=== PATIENT | male | born 1950 | race Caucasian/White ===

== ENCOUNTER 2016-04-18 09:02 | Inpatient (IN) ==
--- NOTE | 2016-04-18 11:22 | Cardiology History & Physical ---
Date of Encounter: 04/18/16 Time of Encounter: 11:19 Assessment and Plan (1) Paroxysmal atrial fibrillation Current Visit: Yes Status: Acute Currently A-Fib with RVR, rates up to 150. Will start Cardizem gtt to help with rate control. Reports palpitations, fatigue, exertional dyspnea and chest discomfort when in A -Fib. Suspect that pt has underlying sleep apnea--never had sleep study. Recommend as outpt. [facility] 2011 minimal CAD. Echo 12/2014 EF 60%. On Cardizem CD 360mg daily at home. Was supposed to have been on Toprol XL 100mg daily but has not been taking it. He is anticoagulated on Xarelto. Has not missed any doses in the past 30 days. Will check CBC, BMP. Plan to start Sotalol 80mg Q12 hours. Will need monitored for 5 doses. If does not convert to SR, will plan for DCCV--no RC necessary since he has not missed any Xarelto doses in 30 days. EKG 03/13/16 A-Fib RVR rate 105, QRS 102ms, QTc 358ms. Will obtain EKGs 2 hours after each Sotalol to monitor QTc does not exceed >500ms. I will discuss all the above with Dr. Coon and make changes as necessary. (2) Encounter for monitoring anti-arrhythmic therapy Current Visit: Yes Status: Acute Plan as above. Sotalol 80mg [id number]. History of Present Illness Chief complaint: A-Fib HPI: Mr. Yi is a 65 year old male with history of HTN, HLD, nonobstructive CAD, atrial flutter which had previously resolved through 2 ablations but now he has had occurrence of paroxysmal atrial fibrillation. His A-Fib is currently managed with cardizem cd 360mg daily and anticoagulated on xarelto. He was evaluated by Dr. Bon Mendenhall 03/13/16 and admitted to shortness of breath with exertion, fatigue and palpitations. He reports chest discomfort when in A-Fib. At time of office visit Toprol XL was increased to 100mg daily for better rate control and pt agreed to start antiarrhythmic therapy--Sotalol. He presents today for antiarrhythmic initiation. He reports not being on Toprol XL. He took his Cardizem this AM, but currently remains in A-Fib with RVR, rate up to 150. He reports occasional palpitations currently and generalized chest discomfort. Past Med Surg Social Fam HX - Past Medical History Medical history: atrial fibrillation, coronary artery disease, hyperlipidemia, hypertension Psychiatric history: anxiety, depression - Past Surgical History Surgical History: cholecystectomy, knee replacement, orthopedic, other, pacemaker (ablations) - Social History Smoking Status: Former smoker Smokeless Tobacco Status: No Alcohol use: none Drug use: none - Family History Father Living Status: Hx Family Cardiac Disorders: Yes Medications and Allergies Atorvastatin [Lipitor] 10 mg PO HS 01/06/15 [History] Diltiazem CD (24hr) [Cardizem CD] 360 mg PO DAILY 01/06/15 [History] Fenofibrate [Lofibra] 160 mg PO DAILY 01/06/15 [History] Latanoprost [Xalatan] 1 drop LEFT EYE HS 01/06/15 [History] Nortriptyline [Pamelor] 25 mg PO BID 01/06/15 [History] Nystatin/Triamcinolone CRM [Mycolog] 1 appl TP BID 01/06/15 [History] Timolol Maleate 0.5% 1 drop LEFT EYE QAM 01/06/15 [History] Oxybutynin Chloride [Ditropan Xl] 10 mg PO HS 12/09/15 [History] Ferrous Sulfate [Iron] 325 mg PO DAILY 12/26/15 [History] Diazepam [Valium] 2 mg PO BID PRN 03/02/16 [History] Omeprazole [PriLOSEC] 20 mg PO BID 03/02/16 [History] Rivaroxaban [Xarelto] 20 mg PO DAILY 03/02/16 [History] Metoprolol XL (24 HR) Succ [Toprol Xl] 50 mg PO DAILY #30 tab.er.24h 03/04/16 [ Rx] HYDROcodone/Acet 5/325 mg [[place] 5-325 mg] 1 tab PO Q6H PRN 04/18/16 [History] Solifenacin Succinate [Vesicare] 10 mg PO DAILY 04/18/16 [History] Tamsulosin [Flomax] 0.8 mg PO DAILY 04/18/16 [History] Allergies clavulanic acid [From Augmentin] Allergy (Verified 03/11/16 14:18) Nausea Sulindac Allergy (Verified 12/11/16 14:18) Nausea All Systems Review: A 10-system review of systems was performed and is negative for pertinent findings except as documented above in the HPI. - Constitutional Constitutional: fatigue - Cardiovascular Cardiovascular: as per HPI, chest pain at rest, dyspnea on exertion, palpitations Physical Examination Vital Signs, Last 4 Hours Temp Pulse Resp BP Pulse Ox 04/18/16 11:14 98.5 F 149 16 131/106 94 L Vital Signs Temp Pulse Resp BP Pulse Ox 04/18/16 11:14 98.5 F 149 16 131/106 94 L Intake and Output 04/17/16 04/18/16 04/18/16 23:59 07:59 15:59 Other: Weight 124.3 kg Patient Weight 04/18/16 23:59 Weight 124.3 kg General: Conversant, No Apparent Distress HEENT: Atraumatic, Normocephaly, Mucus Membranes Moist Neck: No JVD, Normal carotid pulses Cardiac: Other (irregular) Lungs: Normal Breath Sounds, No Wheeze, Rales, Rhonchi Neuro: Alert and responsive, No focal deficits noted Abdomen: Soft, Non-Tender Skin: No rashes noted on visualized skin Musculoskeletal: No Chest Wall Tenderness Extremities: No Clubbing, No Cyanosis, No Edema, Normal Pulses Results - Imaging and Cardiology Echo: report reviewed (01/17/15 EF 60%, moderate diastolic dysfunction) Cardiac cath: report reviewed (12/28/11--Minimal atherosclerotic CAD.)
[2016-04-18 12:25] LABS: Basophils # 0.1 K/mcL (0.0-0.2); Basophils % 1.5 %; Eosinophils # 0.2 K/mcL (0.0-0.6); Eosinophils % 2.7 %; Hematocrit 46.1 % (37.5-50.1); Hemoglobin 15.3 g/dL (12.9-16.9); Immature Granulocytes % 0.6 % (0-4); Immature Platelets 1.3 % (1.1-6.1); Lymphocytes # 1.6 K/mcL (0.6-4.6); Lymphocytes % 17.5 %; Mean Corpuscular HGB Conc 33.2 g/dL (31.6-35.5); Mean Corpuscular Hemoglobin 29.4 pg (28.0-33.3); Mean Corpuscular Volume 88.5 fL (83.0-100.0); Mean Platelet Volume 9.2 fL (9.4-12.4); Monocytes # 0.9 K/mcL (0.0-1.3); Monocytes % 10.5 %; Platelet Count 376 K/mcL (140-400); Red Blood Count 5.21 M/mcL (4.19-5.50); Red Cell Distribution Width 13.3 % (11.5-14.5); Segmented Neutrophils % 67.2 %
[2016-04-18 13:54] LABS: BUN/Creatinine Ratio 14 (6-26); Blood Urea Nitrogen 16 mg/dL (8-26); Calcium 9.9 mg/dL (8.6-10.8); Carbon Dioxide 23 mEq/L (19-29); Chloride 107 mEq/L (98-109); Glucose 133 mg/dL (70-99); Osmolality,Calculated 297 (280-300); Potassium 3.9 mEq/L (3.5-4.5); Sodium 142 mEq/L (136-145); eGFR For African Americans > 60 (> 60); eGFR For Non-African Americans > 60 (> 60)
[2016-04-18] MEDS: *HR* Rivaroxaban 10 MG TABLET PO SCH (16:51)
[2016-04-18] MEDS: Latanoprost 2.5 ML BOTTLE LEFT EYE SCH (20:53)
[2016-04-18] MEDS: diazePAM 5 MG TABLET PO PRN (20:56)
[2016-04-18] MEDS: *HR* HYDROcodone/Acet 5/325 mg TABLET PO PRN (21:01)
[2016-04-19] MEDS: Fenofibrate 54 MG TABLET PO SCH (08:05)
[2016-04-19] MEDS: SOLIFENACIN SUCCINATE 10 MG PO SCH (08:09)
[2016-04-19] MEDS ORDERED: Diltiazem CD (24hr) 180 MG CAPSULE PO SCH (09:00)
--- NOTE | 2016-04-19 09:40 | Cardiology Progress Note ---
Date of Encounter: 04/19/16 Time of Encounter: 09:20 Assessment and Plan (1) Paroxysmal atrial fibrillation Current Visit: Yes Status: Acute Direct admission for sotalol initiation--reports palpitations, fatigue, exertional dyspnea and chest discomfort when in A-Fib. [facility] 2011: minimal CAD. TTE 12/2014: EF 60% EKG 03/13/16 A-Fib RVR rate 105, QRS 102ms, QTc 358ms. Converted to SR yesterday afternoon. No PAF noted upon telemetry review overnight. QT/QTc this AM 458/426, HR 48 after 2nd dose of Sotalol. Avg HR=66 SR. Min=42. Will decrease Cardizem to 180 mg daily. Kidney function stable. Will require inpatient monitoring for at least 5 doses. If QT/QTc remain stable , anticipate discharge tomorrow afternoon. Anticoagulted on Xarelto, has not missed doses in 30+ days. (2) Encounter for monitoring anti-arrhythmic therapy Current Visit: Yes Status: Acute Plan as above. Sotalol 80mg [id number]. Discussion w patient/family: The assessment and plan as outlined above was discussed with the patient and/or family members who expressed understanding and agreement. All questions were answered. Thank you for involving us in the care of your patient. Please call with any questions. Subjective Principal diagnosis: Atrial fibrillation Interval history: Seen and examined. No complaints upon exam this AM. Objective Vital Signs, Last 4 Hours Temp Pulse Resp BP Pulse Ox 04/19/16 08:37 46 04/19/16 08:03 97.4 F L 60 16 134/86 96 General: Conversant, No Apparent Distress HEENT: Atraumatic, Normocephaly, Mucus Membranes Moist Cardiac: Reg Rate and Rhythm, Normal S1 and S2 Lungs: Normal Breath Sounds Neuro: Alert and responsive Abdomen: Soft Skin: No rashes noted on visualized skin Musculoskeletal: No Chest Wall Tenderness Extremities: No Edema, Normal Pulses Results 04/18/16 12:11 04/18/16 13:18 Lab Results 04/18/16 04/18/16 12:11 13:18 WBC 8.9 Hgb 15.3 Hct 46.1 Plt Count 376 Sodium 142 Potassium 3.9 Chloride 107 Carbon Dioxide 23 BUN 16 Creatinine 1.13 Glucose 133 H Calcium 9.9 - Imaging and Cardiology Other Results: Tele: avg HR=66 SR. Min=42 nocturnal. - EKG Interpretation EKG results cardiology: personally reviewed - VTE Reasons for not Prescribing Prophylaxis: Not indicated-Anticoagulated or INR therapeutic Consult Discharge Plan - Plan Referrals: Andres Rudolph Jr, MD [Primary Care Provider] - 04/30/16 10:30 am Bon Mendenhall MD [Partnered Physician] - (SENT WEB REQUEST ON 04-18-16 @ [phone] )
--- NOTE | 2016-04-19 11:25 | Electrocardiograph Report ---
[facility] Test Date: 2016-04-18 Pat Name: Tha Yi Department: 110 Room: 2N08 Gender: M Applier: : 1950 Requested By: Slava Hidalgo Order Number: [id number] Reading MD: Valentin Gayle MD Measurements Intervals [place] Rate: 88 P: [place]: 0 QRS: -31 QRSD: 105 T: 44 QT: 359 QTc: 404 Interpretive Statements ATRIAL FLUTTER WITH CONTROLLED RESPONSE INFERIOR MYOCARDIAL INFARCTION, PROBABLY OLD Electronically Signed On 04-19-16 11:24:10 EST by Valentin Gayle MD
--- NOTE | 2016-04-19 11:27 | Electrocardiograph Report ---
[facility] Test Date: 2016-04-18 Pat Name: EKTA KO Department: 110 Room: 2N08 Gender: M Rn Employee Health: GLORIA : 1950 Requested By: Casey Coon Order Number: [id number] Reading MD: Valentin Gayle MD Measurements Intervals [place] Rate: 62 P: 1 [place]: 238 QRS: -32 QRSD: 98 T: 44 QT: 412 QTc: 417 Interpretive Statements SINUS RHYTHM WITH FIRST DEGREE AV BLOCK INFERIOR MYOCARDIAL INFARCTION, PROBABLY OLD Electronically Signed On 04-19-16 11:26:37 EST by Valentin Gayle MD
--- NOTE | 2016-04-19 11:58 | Electrocardiograph Report ---
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
[2016-04-19] MEDS: diazePAM 5 MG TABLET PO PRN ×2 (13:29→21:38)
--- NOTE | 2016-04-19 14:54 | Electrocardiograph Report ---
[facility] Test Date: 2016-04-19 Pat Name: EKTA KO Department: 110 Room: 2N08 Gender: M Tax Adjuster: FOZIA : 1950 Requested By: Casey Coon Order Number: [id number] Reading MD: Valentin Gayle MD Measurements Intervals [place] Rate: 59 P: 12 DC: 232 QRS: -26 QRSD: 105 T: 56 QT: 445 QTc: 445 Interpretive Statements SINUS BRADYCARDIA WITH FIRST DEGREE AV BLOCK INFERIOR MYOCARDIAL INFARCTION, PROBABLY OLD Electronically Signed On 04-19-16 14:52:24 EST by Valentin Gayle MD
[2016-04-19] MEDS: *HR* Rivaroxaban 10 MG TABLET PO SCH (17:27)
[2016-04-19] MEDS: Latanoprost 2.5 ML BOTTLE LEFT EYE SCH (21:28)
[2016-04-19] MEDS: *HR* HYDROcodone/Acet 5/325 mg TABLET PO PRN (21:38)
[2016-04-20 05:19] LABS: BUN/Creatinine Ratio 17 (6-26); Blood Urea Nitrogen 18 mg/dL (8-26); Carbon Dioxide 26 mEq/L (19-29); Chloride 106 mEq/L (98-109); Glucose 103 mg/dL (70-99); Sodium 142 mEq/L (136-145); eGFR For African Americans > 60 (> 60); eGFR For Non-African Americans > 60 (> 60)
[2016-04-20 05:20] LABS: Calcium 9.5 mg/dL (8.6-10.8); Magnesium 1.9 mg/dL (1.6-2.6); Osmolality,Calculated 296 (280-300)
[2016-04-20] MEDS: *HR* HYDROcodone/Acet 5/325 mg TABLET PO PRN (06:47)
[2016-04-20] MEDS: Fenofibrate 54 MG TABLET PO SCH (07:50)
[2016-04-20] MEDS: Diltiazem CD (24hr) 180 MG CAPSULE PO SCH ×2 (07:51→08:01)
[2016-04-20] MEDS: SOLIFENACIN SUCCINATE 10 MG PO SCH (07:52)
[2016-04-20] MEDS: diazePAM 5 MG TABLET PO PRN (07:57)
[2016-04-20] MEDS ORDERED: Magnesium Oxide 400 MG TABLET PO ONE (10:45)
--- NOTE | 2016-04-20 12:16 | Discharge Summary ---
Date of Encounter: 04/20/16 Time of Encounter: 14:30 - Discharge Diagnosis (1) Paroxysmal atrial fibrillation Priority: Primary Status: Acute (2) Encounter for monitoring anti-arrhythmic therapy Priority: Primary Status: Acute - Discharge Medications Prescriptions: Diltiazem CD (24hr) [Cardizem CD] 180 mg PO DAILY #30 cap.er.24h Sotalol [Betapace] 80 mg PO Q12H #60 tablet Home Medications: Atorvastatin [Lipitor] 10 mg PO HS 01/06/15 [History] Fenofibrate [Lofibra] 160 mg PO DAILY 01/06/15 [History] Latanoprost [Xalatan] 1 drop LEFT EYE HS 01/06/15 [History] Nortriptyline [Pamelor] 25 mg PO BID 01/06/15 [History] Nystatin/Triamcinolone CRM [Mycolog] 1 appl TP BID 01/06/15 [History] Timolol Maleate 0.5% 1 drop LEFT EYE QAM 01/06/15 [History] Oxybutynin Chloride [Ditropan Xl] 10 mg PO HS 12/09/15 [History] Ferrous Sulfate [Iron] 325 mg PO DAILY 12/26/15 [History] Diazepam [Valium] 2 mg PO BID PRN 03/02/16 [History] Omeprazole [PriLOSEC] 20 mg PO BID 03/02/16 [History] Rivaroxaban [Xarelto] 20 mg PO DAILY 03/02/16 [History] HYDROcodone/Acet 5/325 mg [[place] 5-325 mg] 1 tab PO Q6H PRN 04/18/16 [History] Solifenacin Succinate [Vesicare] 10 mg PO DAILY 04/18/16 [History] Tamsulosin [Flomax] 0.8 mg PO DAILY 04/18/16 [History] Diltiazem CD (24hr) [Cardizem CD] 180 mg PO DAILY #30 cap.er.24h 04/20/16 [Rx] Sotalol [Betapace] 80 mg PO Q12H #60 tablet 04/20/16 [Rx] Allergies/Adverse Reactions: Allergies clavulanic acid [From Augmentin] Allergy (Verified 03/11/16 14:18) Nausea Sulindac Allergy (Verified 03/11/16 14:18) Nausea Procedures/tests Complete & Pending: Procedures Performed prior 72 hours Category Date Time Status ECG 12 lead ECG [ECG] Routine Y 04/18/16 14:41 Completed ECG 12 lead ECG [ECG] Routine Y 04/19/16 13:22 Completed EKG [ECG 12 lead ECG] [ECG] DAILY Y 04/18/16 11:56 Completed EKG [ECG 12 lead ECG] [ECG] DAILY Y 04/19/16 11:56 Completed EKG [ECG 12 lead ECG] [ECG] DAILY Y 04/20/16 11:56 Completed Date of admission: 04/18/16 10:28 Primary care physician: Andres Rudolph Jr, MD Discharging clinician: Aubrie Camargo Anticipated date of discharge: 04/20/16 - Patient Status Disposition: Home, Self-Care Condition: Good Functional capacity at discharge: independent ambulation Overall status at discharge: patient is progressing back to baseline - Discharge Instructions Follow Up With: Andres Rudolph Jr, MD [Primary Care Provider] - 04/30/16 10:30 am Bon Mendenhall MD [Partnered Physician] - 05/08/16 1:00 pm () - Diet and Activity Activity: resume usual activities as tolerated Diet: low fat, low cholesterol, low salt diet - Hospital Course Hospital course: Mr. Yi is a 65 year old male who presented as direct admission for initiation of sotalol therapy. Upon admission, he was found to be in atrial fibrillation with RVR and cardizem gtt was started--he quickly converted to SR shortly after gtt was initiated. Sotalol 80 mg q12h was started. Cardizem decreased to 180 mg daily d/t nocturnal bradycardia which improved with decreased dose. Previously anticoagulated on Xarelto and has been compliant for >30 days. Kidney function and electrolytes have remained stable. He has been in SR for the past >48 hours, and QT/QTc has remained stable; patient has been monitored for 5 doses of sotalol. ECG after 5th dose: 443/445 Mr. Yi is being prepped for discharge to home today in stable condition. He will follow-up with Dr. Bon Mendenhall as scheduled. The patient was discussed and reviewed with Dr. Coon who agrees. Recommend outpatient sleep study to evaluate for LOWELL. - Time Spent with Patient Total time spent providing and/or coordinating discharge services: 30 minutes Specific discharge activities: Resume activity as tolerated. Physical Examination Vital Signs, Last 4 Hours Temp Pulse Resp BP Pulse Ox 04/20/16 11:28 98.0 F 62 18 120/90 93 L General: Conversant, No Apparent Distress HEENT: Atraumatic, Normocephaly, Mucus Membranes Moist Neck: No JVD Cardiac: Reg Rate and Rhythm, Normal S1 and S2 Lungs: Normal Breath Sounds Neuro: Alert and responsive Abdomen: Soft Skin: No rashes noted on visualized skin Musculoskeletal: No Chest Wall Tenderness Extremities: No Edema, Normal Pulses - VTE Reasons for not Prescribing Prophylaxis: Not indicated-Anticoagulated or INR therapeutic
[2016-04-20 15:55] VITALS: BP 120/95
--- NOTE | 2016-04-20 16:15 | Electrocardiograph Report ---
[facility] Test Date: 2016-04-20 Pat Name: Tha Yi Department: 110 Room: 2N08 Gender: M Setup Technician: JAREN : 1950 Requested By: Slava Hidalgo Order Number: [id number] Reading MD: Hien Mendenhall Measurements Intervals [place] Rate: 60 P: 1 [place]: 217 QRS: -29 QRSD: 105 T: 26 QT: 452 QTc: 452 Interpretive Statements SINUS RHYTHM WITH SINUS ARRHYTHMIA WITH FIRST DEGREE AV BLOCK INFERIOR MYOCARDIAL INFARCTION, PROBABLY OLD Electronically Signed On 04-20-16 16:12:16 EST by Hien Mendenhall
--- NOTE | 2016-04-23 09:26 | Electrocardiograph Report ---
[facility] Test Date: 2016-04-20 Pat Name: EKTA KO Department: 110 Room: 2N08 Gender: M Risk Manager: : 1950 Requested By: Casey Coon Order Number: [id number] Reading MD: Casey Coon DO Measurements Intervals [place] Rate: 60 P: 11 LA: 215 QRS: -18 QRSD: 110 T: 52 QT: 443 QTc: 445 Interpretive Statements SINUS RHYTHM WITH FIRST DEGREE AV BLOCK INFERIOR MYOCARDIAL INFARCTION, PROBABLY OLD Electronically Signed On 04-23-16 09:25:49 EST by Casey Coon DO
== END 2016-04-20 17:00 | disposition home or self-care (01) | DRG 310 ==
LOC: 2NNU 10:28
PROVIDERS: ADMIT Internal Medicine; ATTEND Internal Medicine

== ENCOUNTER 2016-05-28 08:47 | Inpatient (IN) ==
[2016-05-28 13:37] LABS: Basophils # 0.1 K/mcL (0.0-0.2); Basophils % 0.8 %; Eosinophils # 0.3 K/mcL (0.0-0.6); Hematocrit 43.5 % (37.5-50.1); Hemoglobin 14.6 g/dL (12.9-16.9); Immature Granulocytes % 0.3 % (0-4); Lymphocytes # 1.6 K/mcL (0.6-4.6); Lymphocytes % 24.1 %; Mean Corpuscular HGB Conc 33.6 g/dL (31.6-35.5); Mean Corpuscular Hemoglobin 30.5 pg (28.0-33.3); Mean Platelet Volume 9.8 fL (9.4-12.4); Monocytes # 0.6 K/mcL (0.0-1.3); Monocytes % 8.5 %; Neutrophils # 4.1 K/mcL (1.6-8.9); Platelet Count 256 K/mcL (140-400); Red Blood Count 4.78 M/mcL (4.19-5.50); Red Cell Distribution Width 12.9 % (11.5-14.5); Segmented Neutrophils % 61.3 %
[2016-05-28 13:48] LABS: BUN/Creatinine Ratio 15 (6-26); Blood Urea Nitrogen 16 mg/dL (8-26); Calcium 9.6 mg/dL (8.6-10.8); Carbon Dioxide 28 mEq/L (19-29); Chloride 101 mEq/L (98-109); Glucose 129 mg/dL (70-99); Osmolality,Calculated 285 (280-300); Potassium 4.1 mEq/L (3.5-4.5); Sodium 136 mEq/L (136-145); eGFR For African Americans > 60 (> 60); eGFR For Non-African Americans > 60 (> 60)
[2016-05-28 15:12] LABS: Magnesium 2.1 mg/dL (1.6-2.6)
[2016-05-30 08:27] VITALS: BP 141/89
== END 2016-05-30 16:00 | disposition home or self-care (01) | DRG 950 ==
LOC: 2NENU
PROVIDERS: ADMIT Internal Medicine Clinical Cardiac Electrophysiology; ATTEND Internal Medicine Clinical Cardiac Electrophysiology
PROC: ENDOEBX (2016-05-29 11:20)

== ENCOUNTER 2017-09-09 18:46 | Inpatient (IN) ==
--- NOTE | 2017-09-09 19:20 | Emergency Department Note ---
Disposition Clinical Impression: Palpitations Atrial flutter Qualifiers: Atrial flutter type: typical Qualified Code(s): I48.3 - Typical atrial flutter Disposition: Admitted As Inpatient Condition: Good Referrals: Andres Rudolph Jr, MD [Primary Care Provider] - Forms: ED Satisfaction Letter Time of Disposition: 20:20 General Adult HPI - General Chief complaint: ED Arrhythmia/Palpitations Stated complaint: Heart Rate bouncing around Time Seen by Provider: 09/09/17 19:13 Nursing Notes Reviewed: Yes Vital Signs Reviewed: Yes - History of Present Illness HPI Narrative: Patient began feeling his heart rate is around 9:30 this morning. Does have a history of A. fib. Had a admission to the hospital and was given sotalol to convert his A. fib. Denies any cardiac history other than the fast heart rate and oblations. No history of SD. No history of cardiac catheter. States he has a heaviness feeling in his chest. Has not had this before with the associated palpitations. No associated shortness of breath. Denies any excessive caffeine use or recent cold medication or drug use. Pain Scale: 0 - Related Data Home Medications Medication Instructions Recorded Confirmed Atorvastatin [Lipitor] 10 mg PO QPM 01/06/15 01/13/17 Fenofibrate [Lofibra] 160 mg PO DAILY 01/06/15 01/13/17 Nortriptyline [Pamelor] 25 mg PO QPM 01/06/15 01/13/17 Rivaroxaban [Xarelto] 20 mg PO DAILY 03/02/16 01/13/17 diazePAM [Valium] 5 mg PO TID 03/02/16 01/13/17 Aspirin 81 mg PO DAILY 05/28/16 01/13/17 Diltiazem HCl [Diltiazem ER] 180 mg PO QPM 05/28/16 01/13/17 Oxybutynin [Ditropan] 10 mg PO HS 05/28/16 01/13/17 Nortriptyline [Pamelor] 25 mg PO DAILY 11/13/16 01/13/17 Omeprazole [PriLOSEC] 40 mg PO BID 11/13/16 01/13/17 Ranitidine HCl [Acid Flag Decorator] 150 mg PO BID 11/13/16 01/13/17 Sotalol HCl [Betapace] 80 mg PO BID 11/13/16 01/13/17 Ferrous Sulfate [Slow Release Iron] 65 mg PO DAILY 01/13/17 01/13/17 Nystatin/Triamcinolone OINT 1 appl TP BID 01/13/17 01/13/17 [Mycolog] Timolol Maleate 0.5% 1 drop LEFT EYE DAILY 01/13/17 01/13/17 Previous Rx's Medication Instructions Recorded cephALEXin [Cephalexin] 500 mg PO Q6HR #40 tablet 06/08/17 Allergies Allergy/AdvReac Type Severity Reaction Status Date / Time azithromycin Allergy See Verified 06/08/17 11:55 Comments ciprofloxacin AdvReac Weakness Verified 06/08/17 11:55 clavulanic acid AdvReac Nausea Verified 06/08/17 11:55 [From Augmentin] Sulindac AdvReac Nausea Verified 06/08/17 11:55 All systems ED: reviewed and negative except as stated. Constitutional: Denies: fever ENT ED: Denies: congestion Cardiovascular: Reports: chest pain (Pressure), palpitations. Denies: syncope Respiratory: Denies: cough, dyspnea Gastrointestinal: Denies: abdominal pain, nausea, vomiting, diarrhea Genitourinary: Denies: urgency, dysuria, frequency Musculoskeletal: Denies: back pain Integumentary: Denies: rash Past Medical History - Past Medical History Attestation: Yes The following information was validated with the patient. Source: patient Medical history: Reports: non-contributory Surgical history: Reports: cholecystectomy, knee replacement, orthopedic, other , other Psychiatric history: Reports: anxiety, depression - Social History Smoking Status: Never smoker Smokeless Tobacco Status: No Alcohol use: Reports: none Drug use: Reports: none Physical Exam - General Limitations: no limitations General appearance: alert, in no apparent distress - Head Head exam: atraumatic, normocephalic, normal inspection - Eye Eye exam: Present: normal appearance, PERRL, EOMI. Absent: scleral icterus - ENT ENT exam: normal exam, normal oropharynx, mucous membranes moist - Neck Neck exam: Present: normal inspection, full ROM, trachea midline - Chest Chest inspection: Present: normal inspection, symmetric chest wall rise - Respiratory Respiratory exam: Present: normal lung sounds bilaterally. Absent: respiratory distress, accessory muscle use - Cardiovascular Cardiovascular exam: Present: regular rate, normal heart sounds - Abdominal Exam Abdominal exam: Present: soft, Non-Tender. Absent: tenderness, distention, rigidity, organomegaly - Extremities Exam Extremities exam: Present: normal inspection, full ROM, normal capillary refill. Absent: tenderness, pedal edema - Neurological Exam Neurological exam: Present: alert, oriented X3 - Psychiatric Psychiatric exam: Present: normal affect, normal mood - Skin Skin exam: Present: warm, dry, intact, normal color. Absent: rash, cyanosis Course Course Narrative: Pt began having chest pressure this am at 09:30. Has a history of afib. Last EKG showed patient and a sinus bradycardia rhythm. He has been here and was placed on diltiazem as well as sotalol for rate control of A. fib. He is currently on Xarelto. We will give patient aspirin get a chest x-ray basic lab workup. He is in A flutter at this time. He is well-appearing and resting comfortably. He does not appear to be in any distress. He denies any shortness of breath. Sounds are clear heart tones are normal. Abdomen is soft and nontender. No signs of edema to his extremities. We will get a basic lab workup on patient and discussed the patient with Dr. Mendenhall. Vital Signs Temperature 98.1 F 09/09/17 18:48 Pulse Rate 100 09/09/17 18:48 Respiratory Rate 18 09/09/17 18:48 Blood Pressure 139/78 09/09/17 18:48 O2 Sat by Pulse Oximetry 93 09/09/17 18:48 Temperature 98.1 F 09/09/17 19:31 Pulse Rate 88 09/09/17 20:29 Respiratory Rate 16 09/09/17 20:29 Blood Pressure 122/89 09/09/17 20:29 O2 Sat by Pulse Oximetry 94 09/09/17 20:29 Oxygen Delivery Oxygen Delivery Room Air Medical Decision Making - Medical Records Medical records reviewed: Yes I reviewed the patient's medical records. - Lab Data Result diagrams: 09/09/17 19:55 09/09/17 19:55 Lab Results 09/09/17 09/09/17 09/09/17 Range/Units 19:55 19:55 19:55 WBC 6.0 (4.3-11.1) K/mcL RBC 5.21 (4.19-5.50) M/mcL Hgb 15.6 (12.9-16.9) g/dL Hct 47.6 (37.5-50.1) % MCV 91.4 (83.0-100.0) fL MCH 29.9 (28.0-33.3) pg MCHC 32.8 (31.6-35.5) g/dL RDW 12.8 (11.5-14.5) % Plt Count 277 (140-400) K/mcL MPV 8.9 L (9.4-12.4) fL Immature Gran % 0.7 (0-4) % Seg Neutrophils % 85.1 % Lymphocytes % 12.4 % Monocytes % 1.3 % Eosinophils % 0.0 % Basophils % 0.5 % Neutrophils # 5.1 (1.6-8.9) K/mcL Lymphocytes # 0.7 (0.6-4.6) K/mcL Monocytes # 0.1 (0.0-1.3) K/mcL Eosinophils # 0.0 (0.0-0.6) K/mcL Basophils # 0.0 (0.0-0.2) K/mcL PT 21.0 H (9.4-12.1) Seconds INR 1.9 APTT 50.3 H (26.0-36.0) Seconds Sodium 137 (136-145) mEq/L Potassium 4.2 (3.5-5.1) mEq/L Chloride 101 (98-107) mEq/L Carbon Dioxide 25 (23-29) mEq/L BUN 17 (8-23) mg/dL Creatinine 1.12 (0.70-1.30) mg/dL Est GFR ( Amer) > 60 (> 60) Est GFR (Non-Af Amer) > 60 (> 60) BUN/Creatinine Ratio 15 (6-26) Glucose 198 H (70-105) mg/dL Calculated Osmolality 291 (280-300) Calcium 10.1 (8.6-10.3) mg/dL Troponin I < 0.03 (< 0.04) ng/mL TSH 0.903 (0.340-5.600) mcIU/mL - EKG Data EKG #1 EKG attestation: Yes I reviewed and interpreted this EKG. EKG results narrative: A flutter with a 2-1 conduction. Occasional 3-1. Ventricular rate of 87. QRS duration is 101. QT is 368. QTC is 413. No signs of acute ischemia. Patient was previously and a sinus bradycardic rhythm on 06/08/2017.
[2017-09-09] MEDS ORDERED: Aspirin 325 MG TABLET PO ONE (19:25)
[2017-09-09] MEDS ORDERED: *HR* FentaNYL (PF) 100 MCG/2 ML VIAL IVP ONE (19:31)
[2017-09-09] MEDS ORDERED: Nitroglycerin 0.4 MG TAB.SUBL SL PRN (19:31)
--- NOTE | 2017-09-09 20:10 | Emergency Department Note ---
Disposition Clinical Impression: Palpitations Atrial flutter Qualifiers: Atrial flutter type: typical Qualified Code(s): I48.3 - Typical atrial flutter Disposition: Admitted As Inpatient Condition: Good Referrals: Andres Rudolph Jr, MD [Primary Care Provider] - Forms: ED Satisfaction Letter Time of Disposition: 20:43 General Adult HPI - General Chief complaint: ED Arrhythmia/Palpitations Stated complaint: Heart Rate bouncing around Time Seen by Provider: 09/09/17 19:13 - History of Present Illness Pain Scale: 0 - Related Data Home Medications Medication Instructions Recorded Confirmed Rivaroxaban [Xarelto] 20 mg PO DAILY 03/02/16 09/09/17 diazePAM [Valium] 5 mg PO TID 03/02/16 09/09/17 Aspirin 81 mg PO DAILY 05/28/16 09/09/17 Diltiazem HCl [Diltiazem ER] 180 mg PO QPM 05/28/16 09/09/17 Oxybutynin [Ditropan] 5 mg PO BID 05/28/16 09/09/17 Nortriptyline [Pamelor] 25 mg PO BID 11/13/16 09/09/17 Omeprazole [PriLOSEC] 40 mg PO DAILY 11/13/16 09/09/17 Sotalol HCl [Betapace] 120 mg PO BID 11/13/16 09/09/17 Nystatin/Triamcinolone OINT 1 appl TP DAILY 01/13/17 09/09/17 [Mycolog] Timolol Maleate 0.5% 1 drop LEFT EYE DAILY 01/13/17 09/09/17 Atorvastatin [Lipitor] 10 mg PO HS 09/09/17 09/09/17 Fenofibrate Nanocrystallized 160 mg PO DAILY 09/09/17 09/09/17 [Triglide] Gabapentin [Neurontin] 600 mg PO TID 09/09/17 09/09/17 HYDROcodone/Acet 5/325 mg [[place] 1 tab PO Q6H PRN 09/09/17 09/09/17 5-325 mg] Latanoprost [Xalatan] 1 drop LEFT EYE DAILY 09/09/17 09/09/17 Allergies Allergy/AdvReac Type Severity Reaction Status Date / Time azithromycin Allergy See Verified 09/09/17 21:03 Comments ciprofloxacin AdvReac Weakness Verified 09/09/17 21:03 clavulanic acid AdvReac Nausea Verified 09/09/17 21:03 [From Augmentin] Sulindac AdvReac Nausea Verified 09/09/17 21:03 Past Medical History - Past Medical History Medical history: Reports: arthritis, atrial fibrillation, GERD, hyperlipidemia, hypertension Surgical history: Reports: cholecystectomy, knee replacement, orthopedic, other , other Psychiatric history: Reports: anxiety, depression - Social History Smoking Status: Never smoker Smokeless Tobacco Status: No Alcohol use: Reports: none Drug use: Reports: none Course - Reevaluation(s) Reevaluation #1: Patient reevaluated. Heart rate bouncing between 90s and 120s. We will discuss with cardiology and admit. Time: 20:43 - Consultations Consultation #1: Discussed with Dr Coon who wants him started on cardizem and will adjust Sotalol tomorrow. Will admit to hospitalist service. Time: 21:00 Consultation #2: Dr Rawls accepts Time: 21:16 Vital Signs Temperature 98.1 F 09/09/17 18:48 Pulse Rate 100 09/09/17 18:48 Respiratory Rate 18 09/09/17 18:48 Blood Pressure 139/78 09/09/17 18:48 O2 Sat by Pulse Oximetry 93 09/09/17 18:48 Temperature 98.1 F 09/09/17 19:31 Pulse Rate 88 09/09/17 20:29 Respiratory Rate 16 09/09/17 20:29 Blood Pressure 122/89 09/09/17 20:29 O2 Sat by Pulse Oximetry 94 09/09/17 20:29 Oxygen Delivery Oxygen Delivery Room Air Medical Decision Making - Lab Data Result diagrams: 09/09/17 19:55 09/09/17 19:55 Lab Results 09/09/17 09/09/17 09/09/17 Range/Units 19:55 19:55 19:55 WBC 6.0 (4.3-11.1) K/mcL RBC 5.21 (4.19-5.50) M/mcL Hgb 15.6 (12.9-16.9) g/dL Hct 47.6 (37.5-50.1) % MCV 91.4 (83.0-100.0) fL MCH 29.9 (28.0-33.3) pg MCHC 32.8 (31.6-35.5) g/dL RDW 12.8 (11.5-14.5) % Plt Count 277 (140-400) K/mcL MPV 8.9 L (9.4-12.4) fL Immature Gran % 0.7 (0-4) % Seg Neutrophils % 85.1 % Lymphocytes % 12.4 % Monocytes % 1.3 % Eosinophils % 0.0 % Basophils % 0.5 % Neutrophils # 5.1 (1.6-8.9) K/mcL Lymphocytes # 0.7 (0.6-4.6) K/mcL Monocytes # 0.1 (0.0-1.3) K/mcL Eosinophils # 0.0 (0.0-0.6) K/mcL Basophils # 0.0 (0.0-0.2) K/mcL PT 21.0 H (9.4-12.1) Seconds INR 1.9 APTT 50.3 H (26.0-36.0) Seconds Sodium 137 (136-145) mEq/L Potassium 4.2 (3.5-5.1) mEq/L Chloride 101 (98-107) mEq/L Carbon Dioxide 25 (23-29) mEq/L BUN 17 (8-23) mg/dL Creatinine 1.12 (0.70-1.30) mg/dL Est GFR ( Amer) > 60 (> 60) Est GFR (Non-Af Amer) > 60 (> 60) BUN/Creatinine Ratio 15 (6-26) Glucose 198 H (70-105) mg/dL Calculated Osmolality 291 (280-300) Calcium 10.1 (8.6-10.3) mg/dL Troponin I < 0.03 (< 0.04) ng/mL TSH 0.903 (0.340-5.600) mcIU/mL Critical Care Time Critical Care Time: Yes Total Critical Care Time: 35 Attestation: Critical care performed: Time is exclusive of separately billable procedures. Time includes: direct patient care, patient reassessment, coordination of patient care, interpretation of data (laboratory data, radiology data, and respiratory data), review of patient's medical records, medical consultation and documentation of patient care. Procedures included in critical care time: Procedures excluded from critical care time: Attestation Statement - Attestation Attestation: I examined this patient and my medical decision-making was reviewed with the Resident Physician. I agree with the documented findings, disposition and treatment plan as described except to the extent set forth below. Patient presents to the ED with a chief complaint of feeling his heart flip flop. Patient states he has a history of A. fib and it feels similar. Patient' s last admission he was started on sotalol and converted to sinus rhythm. He has some associated chest heaviness with it. On examination he does not appear to be in acute distress. Heart irregular. Lungs clear. Plan. Cardiac workup. He is rate controlled. We will discuss with cardiology.
[2017-09-09 20:12] LABS: Basophils % 0.5 %; Hematocrit 47.6 % (37.5-50.1); Hemoglobin 15.6 g/dL (12.9-16.9); Immature Granulocytes % 0.7 % (0-4); Lymphocytes # 0.7 K/mcL (0.6-4.6); Lymphocytes % 12.4 %; Mean Corpuscular HGB Conc 32.8 g/dL (31.6-35.5); Mean Corpuscular Hemoglobin 29.9 pg (28.0-33.3); Mean Corpuscular Volume 91.4 fL (83.0-100.0); Mean Platelet Volume 8.9 fL (9.4-12.4); Monocytes # 0.1 K/mcL (0.0-1.3); Monocytes % 1.3 %; Neutrophils # 5.1 K/mcL (1.6-8.9); Platelet Count 277 K/mcL (140-400); Red Blood Count 5.21 M/mcL (4.19-5.50); Red Cell Distribution Width 12.8 % (11.5-14.5); Segmented Neutrophils % 85.1 %
[2017-09-09 20:20] LABS: INR 1.9
[2017-09-09 20:22] LABS: Activated Partial Thrombo Time 50.3 Seconds (26.0-36.0)
[2017-09-09 20:33] LABS: BUN/Creatinine Ratio 15 (6-26); Blood Urea Nitrogen 17 mg/dL (8-23); Calcium 10.1 mg/dL (8.6-10.3); Carbon Dioxide 25 mEq/L (23-29); Chloride 101 mEq/L (98-107); Glucose 198 mg/dL (70-105); Osmolality,Calculated 291 (280-300); Potassium 4.2 mEq/L (3.5-5.1); Sodium 137 mEq/L (136-145); eGFR For African Americans > 60 (> 60); eGFR For Non-African Americans > 60 (> 60)
[2017-09-09 20:34] LABS: Troponin I < 0.03 ng/mL (< 0.04)
[2017-09-09 20:48] LABS: Thyroid Stimulating Hormone 0.903 mcIU/mL (0.340-5.600)
[2017-09-09 22:05] LABS: Amphetamine Screen,Urine Negative ng/mL (Cutoff=1000); Barbiturate Screen,Urine Negative ng/mL (Cutoff=200); Benzodiazepines Screen,Urine Positive ng/mL (Cutoff=200); Cannabinoid Screen,Urine Negative ng/mL (Cutoff = 50); Cocaine Screen,Urine Negative ng/mL (Cutoff= 300); Opiate Screen,Urine Positive ng/mL (Cutoff=300); Phencyclidine Screen,Urine Negative ng/mL (Cutoff=25)
[2017-09-09] MEDS ORDERED: Naloxone 0.4 MG/ML INJ IVP PRN (23:14)
--- NOTE | 2017-09-09 23:21 | Internal Med History&Physical ---
<Taylor Smith - Last Filed: 09/10/17 06:16> Date of Encounter: 09/10/17 Time of Encounter: 23:10 Internal Medicine - H&P: HPI Chief complaint: tachycardia Admitted From: Home Plans for Post Hospital Care: Home History of present illness: Mr. Yi is a 67 year old male with a past medical history of hypertension, hyperlipidemia and GERD, and afib/aflutter s/p ablation x2 on Xarelto and Sotolol who presented to the ED for chest pressure and change in heart rate. Patient states that he was at pain management today getting a steroid injection in his heart rate was noted to be 39 bpm. Patient states that he went home and rechecked his heart rate which was 101 bpm. He states that around 9:30 AM he started having chest pressure but denies shortness of breath, diaphoresis, syncope, chest pain, cough, fever, or palpitations. Patient came to the ED due to change in heart rate from bradycardia to tachycardia. Cardiology was consultative patient's heart rate was in the 120s. Cardiology recommended placing patient on Cardizem drip. Patient admitted to the floor for atrial flutter with RVR. Uke Driver: Dr. Mendenhall. Last Echo 01/07/15 - EF 60%, moderate diastolic dysfunction of the left ventricle. Past Med Surg Social Fam HX - Past Medical History Source: patient Medical history: arthritis, atrial fibrillation, GERD, hyperlipidemia, hypertension Additional medical history: dysfunctional vocal cord Psychiatric history: anxiety, depression - Past Surgical History Surgical History: cholecystectomy, knee replacement, orthopedic, other, other Additional surgical history: Right knee revision. Bulding disc - Social History Smoking Status: Never smoker Smokeless Tobacco Status: No Alcohol use: none Drug use: none - Family History Mother Living Status: Hx Family Cardiac Disorders: Yes ([place]) Father Living Status: Hx Family Cardiac Disorders: Yes Internal Medicine - H&P: Meds Rivaroxaban [Xarelto] 20 mg PO DAILY 03/02/16 [History] diazePAM [Valium] 5 mg PO TID 03/02/16 [History] Aspirin 81 mg PO DAILY 05/28/16 [History] Diltiazem HCl [Diltiazem ER] 180 mg PO QPM 05/28/16 [History] Oxybutynin [Ditropan] 5 mg PO BID 05/28/16 [History] Nortriptyline [Pamelor] 25 mg PO BID 11/13/16 [History] Omeprazole [PriLOSEC] 40 mg PO DAILY 11/13/16 [History] Sotalol HCl [Betapace] 120 mg PO BID 11/13/16 [History] Nystatin/Triamcinolone OINT [Mycolog] 1 appl TP DAILY 01/13/17 [History] Timolol Maleate 0.5% 1 drop LEFT EYE DAILY 01/13/17 [History] Atorvastatin [Lipitor] 10 mg PO HS 09/09/17 [History] Fenofibrate Nanocrystallized [Triglide] 160 mg PO DAILY 09/09/17 [History] Gabapentin [Neurontin] 600 mg PO TID 09/09/17 [History] HYDROcodone/Acet 5/325 mg [[place] 5-325 mg] 1 tab PO Q6H PRN 09/09/17 [History] Latanoprost [Xalatan] 1 drop LEFT EYE DAILY 09/09/17 [History] 3 Allergy/AdvReac Type Severity Reaction Status Date / Time azithromycin Allergy See Verified 09/09/17 21:03 Comments ciprofloxacin AdvReac Weakness Verified 09/09/17 21:03 clavulanic acid AdvReac Nausea Verified 09/09/17 21:03 [From Augmentin] Sulindac AdvReac Nausea Verified 09/09/17 21:03 All Systems PM: A 10-system review of systems was performed and is negative for pertinent findings except as documented above in the HPI. - Constitutional Vitals: Temp Pulse Resp BP Pulse Ox 98.1 F 104 16 138/90 94 09/09/17 19:31 09/09/17 21:53 09/09/17 21:53 09/09/17 21:53 09/09/17 21:53 Exam: Constitutional: Alert, in no acute distress Head: Normocephalic, atraumatic Heart: Normal, regular rate and rhythm, no murmurs Lungs: Clear to auscultation, no wheezes, rales, or rhonchi Abdomen: Soft, nondistended, nontender, bowel sounds present and normal, no guarding or rigidity. Extremities: No edema, radial pulse +2/4, capillary refill <2sec. Skin: Skin warm and dry, no lesions, no rashes, no jaundice Neurologic: strength 5/5 in all extremitites Psych: Cooperative with exam, good eye contact, cognitive function intact, speech clear, thought process logical, and goal directed Internal Med - H&P Results - Labs CBC & Chem 7: 09/10/17 02:39 09/09/17 19:55 - Assessment and plan (1) Atrial flutter with rapid ventricular response Current Visit: Yes Status: Acute Assessment and plan: PMH of Afib and aflutter with ablation x2. Patient admits to chest pressure but denies chest pain. Troponins= <0.03. In the ED, heart rate jumping between 90s to 120s. EKG showed A flutter with HR 87bpm. Cardizem drip initiated. HR currently is 78bpm. Plan: - trending troponins - continue Cardizem drip - continue telemetry - cardiology consulted in the ED, recommended starting Cardizem drip - continue all home meds except holding Sotolol until cardiology sees patient in the AM - Diet: Cardiac (2) HTN (hypertension) Current Visit: Yes Status: Acute Assessment and plan: Blood pressure has been within normal limits. We will continue home medications except for holding Sotalol. Qualifiers: Hypertension type: essential hypertension Qualified Code(s): I10 - Essential (primary) hypertension (3) DVT prophylaxis Current Visit: Yes Status: Acute Assessment and plan: continue Xarelto - Time Spent With Patient Total time spent is greater than 50% in coordination of care (as documented) at patient's floor/unit and/or counseling patient: <Ghassan Rawls - Last Filed: 09/10/17 07:00> Date of Encounter: 09/10/17 Internal Medicine - H&P: HPI History of present illness: Mr. Yi is a 67 year old male All Systems PM: A 10-system review of systems was performed and is negative for pertinent findings except as documented above in the HPI. - Constitutional Vitals: Temp Pulse Resp BP Pulse Ox 98.4 F 71 18 100/67 94 09/10/17 06:54 09/10/17 06:54 09/10/17 06:54 09/10/17 06:54 09/10/17 06:54 Internal Med - H&P Results - Labs CBC & Chem 7: 09/10/17 02:39 09/09/17 19:55 Labs: Short CBC 09/10/17 Range/Units 02:39 WBC 8.8 (4.3-11.1) K/mcL Hgb 15.1 (12.9-16.9) g/dL Hct 45.3 (37.5-50.1) % Plt Count 281 (140-400) K/mcL Neutrophils # 7.5 (1.6-8.9) K/mcL Cardiac Enzymes 09/10/17 Range/Units 02:39 Troponin I < 0.03 (< 0.04) ng/mL - Attending Attestation I have seen and examined this patient independently. I have discussed with resident physician Dr. Smith regarding the management plan. Agree with the documentation. - Assessment and plan (1) Atrial flutter with rapid ventricular response Current Visit: Yes Status: Acute (2) HTN (hypertension) Current Visit: Yes Status: Acute Qualifiers: Hypertension type: essential hypertension Qualified Code(s): I10 - Essential (primary) hypertension (3) DVT prophylaxis Current Visit: Yes Status: Acute - Time Spent With Patient Total time spent is greater than 50% in coordination of care (as documented) at patient's floor/unit and/or counseling patient:
[2017-09-10] MEDS ORDERED: Acetaminophen 325 MG TABLET PO PRN (00:23)
[2017-09-10] MEDS ORDERED: *HR* HYDROcodone/Acet 5/325 mg TABLET PO PRN (00:26)
[2017-09-10] MEDS: *HR* Rivaroxaban 10 MG TABLET PO SCH ×2 (00:36→09:06)
[2017-09-10] MEDS: diazePAM 5 MG TABLET PO PRN (00:54)
[2017-09-10] MEDS: Gabapentin 300 MG CAPSULE PO SCH ×4 (00:55→20:40)
[2017-09-10 03:43] LABS: Basophils % 0.2 %; Hematocrit 45.3 % (37.5-50.1); Hemoglobin 15.1 g/dL (12.9-16.9); Immature Granulocytes % 0.6 % (0-4); Lymphocytes # 0.9 K/mcL (0.6-4.6); Lymphocytes % 10.3 %; Mean Corpuscular HGB Conc 33.3 g/dL (31.6-35.5); Mean Corpuscular Hemoglobin 30.3 pg (28.0-33.3); Mean Corpuscular Volume 90.8 fL (83.0-100.0); Mean Platelet Volume 9.2 fL (9.4-12.4); Monocytes # 0.3 K/mcL (0.0-1.3); Neutrophils # 7.5 K/mcL (1.6-8.9); Platelet Count 281 K/mcL (140-400); Red Blood Count 4.99 M/mcL (4.19-5.50); Red Cell Distribution Width 12.6 % (11.5-14.5); Segmented Neutrophils % 85.9 %
[2017-09-10 03:56] LABS: Troponin I < 0.03 ng/mL (< 0.04)
[2017-09-10] MEDS: Fenofibrate 54 MG TABLET PO SCH (09:05)
[2017-09-10] MEDS: Aspirin 81 MG TAB.CHEW PO SCH (09:06)
[2017-09-10] MEDS: Latanoprost 2.5 ML BOTTLE LEFT EYE SCH (09:08)
[2017-09-10] MEDS: Diltiazem CD (24hr) 120 MG CAPSULE PO SCH (09:09)
[2017-09-10 10:42] LABS: BUN/Creatinine Ratio 20 (6-26); Blood Urea Nitrogen 20 mg/dL (8-23); Calcium 9.7 mg/dL (8.6-10.3); Carbon Dioxide 20 mEq/L (23-29); Chloride 100 mEq/L (98-107); Glucose 177 mg/dL (70-105); Magnesium 1.7 mg/dL (1.6-2.6); Osmolality,Calculated 287 (280-300); Phosphorous 1.5 mg/dL (2.7-4.5); Potassium 4.1 mEq/L (3.5-5.1); Sodium 135 mEq/L (136-145); eGFR For African Americans > 60 (> 60); eGFR For Non-African Americans > 60 (> 60)
--- NOTE | 2017-09-10 11:32 | Cardiology Consult Note ---
<Le Barros - Last Filed: 09/10/17 11:26> Date of Encounter: 09/10/17 Time of Encounter: 10:00 Assessment and Plan (1) Chest pain Current Visit: No Status: Acute Per cardiology: -Reported chest pressure. -Denies exertional symptoms. -Denies current chest pain/pressure. -ECG with no acute ischemic changes. -Troponins negative x3. -12/2014 TTE with LVEF 60%, moderate diastolic dysfunction, no segmental wall motion abnormalities noted. -2011 [facility] with non-obstructive CAD. -ON asa, statin, BB -Discussed and reviewed with , will plan for stress in am. WIll check TTE. Qualifiers: Chest pain type: unspecified Qualified Code(s): R07.9 - Chest pain, unspecified (2) Atrial flutter Current Visit: Yes Status: Chronic Per cardiology: -Known history of a.fib/flutter s/p ablation. -Currently on sotalol 120mg Q12 hours. -Follows with Dr.John Mendenhall, who states in outpatient note, would like to increase sotalol. -Average HR previous 12 hours noted to eb 89, a.flutter. Longest pause 1.9 seconds. -Holter 05/2017 with SR, frequent a.fib/flutter episodes, several pauses up to 4.6 seconds nocturnal, and with conversion to SR. -ALso on cardizem CD 120mg daily at home. -Discussed and reviewed with , will plan on stress tomorrow. Will plan to consult EP this admission. -Was on cardizem drip, stopped and placed back on home cardizem since patient is rate controlled. Qualifiers: Atrial flutter type: typical Qualified Code(s): I48.3 - Typical atrial flutter Discussion w patient/family: The assessment and plan as outlined above was discussed with the patient who expressed understanding and agreement. All questions were answered. Thank you for involving us in the care of your patient. Please call with any questions. Discussed and reviewed with . History of Present Illness Consult date: 09/09/17 Requesting physician: Eli Steven Consult reason: a.flutter Chief complaint: HR high History of present illness: Mr. Yi is a 67 year old male with a relevant past medical history of a.fib/ flutter s/p ablation, syncope, HLD, anemia, anxiety, gastritis, non-obstructive CAD who presented to [facility] with complaints of high HR. Patient reports he had a spinal injection yesterday and states his HR there were 39-44. Patient denies dizziness, lightheadedness. Patient reports he felt ok, however his stated he was not "focusing well." Patient states after injection he returned home. Patient states he then developed chest pressure, so he checked his HR and it was 101. Patient then presented to ER. Patient denies current chest pain/ pressure. Denies shortness of breath. Denies palpitations or fluttering. Past Med Surg Social Fam HX - Past Medical History Attestation: Yes The following information was validated with the patient. Source: patient, old records reviewed Medical history: arthritis, atrial fibrillation, GERD, hyperlipidemia, hypertension Additional medical history: dysfunctional vocal cord Psychiatric history: anxiety, depression - Past Surgical History Surgical History: cholecystectomy, knee replacement, orthopedic, other, other Additional surgical history: Right knee revision. Bulding disc - Social History Smoking Status: Never smoker Smokeless Tobacco Status: No Alcohol use: none Drug use: none - Family History Mother Living Status: Hx Family Cardiac Disorders: Yes ([place]) Father Living Status: Hx Family Cardiac Disorders: Yes Medications and Allergies Rivaroxaban [Xarelto] 20 mg PO DAILY 03/02/16 [History] diazePAM [Valium] 5 mg PO TID 03/02/16 [History] Aspirin 81 mg PO DAILY 05/28/16 [History] Oxybutynin [Ditropan] 5 mg PO BID 05/28/16 [History] Nortriptyline [Pamelor] 25 mg PO BID 11/13/16 [History] Omeprazole [PriLOSEC] 40 mg PO DAILY 11/13/16 [History] Sotalol HCl [Betapace] 120 mg PO BID 11/13/16 [History] Nystatin/Triamcinolone OINT [Mycolog] 1 appl TP DAILY 01/13/17 [History] Timolol Maleate 0.5% 1 drop LEFT EYE DAILY 01/13/17 [History] Atorvastatin [Lipitor] 10 mg PO HS 09/09/17 [History] Fenofibrate Nanocrystallized [Triglide] 160 mg PO DAILY 09/09/17 [History] Gabapentin [Neurontin] 600 mg PO TID 09/09/17 [History] HYDROcodone/Acet 5/325 mg [[place] 5-325 mg] 1 tab PO Q6H PRN 09/09/17 [History] Latanoprost [Xalatan] 1 drop LEFT EYE DAILY 09/09/17 [History] Diltiazem CD (24hr) [Cardizem CD] 120 mg PO DAILY 09/10/17 [History] 3 Allergy/AdvReac Type Severity Reaction Status Date / Time azithromycin Allergy See Verified 09/09/17 21:03 Comments ciprofloxacin AdvReac Weakness Verified 09/09/17 21:03 clavulanic acid AdvReac Nausea Verified 09/09/17 21:03 [From Augmentin] Sulindac AdvReac Nausea Verified 09/09/17 21:03 All Systems Review: The remainder of the systems were reviewed and are negative - Cardiovascular Cardiovascular: as per HPI Physical Examination Vital Signs, Last 4 Hours Temp Pulse Resp BP Pulse Ox 09/10/17 10:48 97.7 F 75 18 122/79 95 09/10/17 09:11 113/75 General: Conversant, No Apparent Distress HEENT: Atraumatic, Normocephaly, Mucus Membranes Moist Neck: No JVD, Normal carotid pulses Cardiac: Normal S1 and S2, No Murmur, Other (Irregularly irregular) Lungs: Normal Breath Sounds, No Wheeze, Rales, Rhonchi Neuro: Alert and responsive, No focal deficits noted Abdomen: Soft, Non-Tender Skin: No rashes noted on visualized skin Musculoskeletal: No Chest Wall Tenderness Extremities: No Clubbing, No Cyanosis, No Edema, Normal Pulses Results 09/10/17 02:39 09/10/17 02:39 Lab Results Impressions Chest X-Ray 09/09/17 19:26 IMPRESSION: No acute abnormality. D/ / Sachin Esqueda MD / Sachin Esqueda MD Interpreting Provider: Sachin Esqueda MD Active Medications Acetaminophen (Tylenol) 650 mg PO Q6HR PRN PRN Reason: Mild Pain/Fever Stop: 03/12/18 00:24 Hydrocodone Bitart/Acetaminophen ([place] 5-325 Mg) 1 tab PO Q6H PRN PRN Reason: Moderate to Severe Pain Stop: 03/12/18 00:27 Aspirin (Aspirin) 81 mg PO DAILY GEGE Stop: 03/12/18 09:01 Last Admin: 09/10/17 09:06 Dose: 81 mg Atorvastatin Calcium (Lipitor) 10 mg PO HS GEGE Stop: 03/12/18 21:01 Diazepam (Valium) 5 mg PO TID PRN PRN Reason: anxiety Stop: 03/11/18 23:23 Last Admin: 09/10/17 00:54 Dose: 5 mg Diltiazem HCl (Cardizem Cd) 120 mg PO DAILY GEGE Stop: 03/12/18 09:01 Last Admin: 09/10/17 09:09 Dose: 120 mg Fenofibrate (Tricor) 162 mg PO DAILY GEGE Stop: 03/12/18 09:01 Last Admin: 09/10/17 09:05 Dose: 162 mg Gabapentin (Neurontin) 600 mg PO TID GEGE Stop: 03/11/18 23:31 Last Admin: 09/10/17 09:05 Dose: 600 mg Hydralazine HCl (Hydralazine) 10 mg IVP Q6HR PRN PRN Reason: Hypertension Stop: 03/11/18 23:33 Sodium Phosphate 30 mmol/ (Sodium Chloride) 260 mls @ 42 mls/hr IVPB ONCE ONE Stop: 09/10/17 17:29 Latanoprost (Xalatan) 1 drop LEFT EYE DAILY GEGE PRN Reason: Protocol Stop: 03/12/18 09:01 Last Admin: 09/10/17 09:08 Dose: 1 drop Naloxone HCl (Narcan) 0.4 mg IVP Q2MIN PRN PRN Reason: SEE COMMENTS Stop: 03/11/18 23:15 Nitroglycerin (Nitroglycerin) 0.4 mg SL Q5MIN PRN PRN Reason: Chest Pain Stop: 03/11/18 19:32 Nortriptyline HCl (Pamelor) 25 mg PO BID GEGE Stop: 03/12/18 09:01 Last Admin: 09/10/17 09:06 Dose: 25 mg Omeprazole (Prilosec) 40 mg PO DAILY GEGE Stop: 03/12/18 09:01 Last Admin: 09/10/17 09:06 Dose: 40 mg Oxybutynin Chloride (Ditropan) 5 mg PO BID GEGE PRN Reason: Protocol Stop: 03/12/18 09:01 Last Admin: 09/10/17 09:06 Dose: 5 mg Potassium Phos/Sodium Phos (Neutra-Phos) 1 each PO BID GEGE PRN Reason: Protocol Stop: 03/12/18 21:01 Rivaroxaban (Xarelto) 20 mg PO DAILY GEGE Stop: 03/11/18 23:31 Last Admin: 09/10/17 09:06 Dose: 20 mg Sotalol HCl (Betapace) 120 mg PO Q12HR GEGE Stop: 03/12/18 00:36 Last Admin: 09/10/17 05:30 Dose: Not Given Timolol Maleate (Timolol Maleate 0.5%) 1 drop LEFT EYE DAILY GEGE PRN Reason: Protocol Stop: 03/12/18 09:01 Last Admin: 09/10/17 09:07 Dose: 1 drop Laboratory Tests 09/09/17 09/10/17 09/10/17 19:55 02:39 02:39 Hgb 15.1 Potassium 4.1 Creatinine 0.99 Magnesium 1.7 Troponin I < 0.03 < 0.03 09/10/17 08:41 Hgb Potassium Creatinine Magnesium Troponin I < 0.03 - Imaging and Cardiology Chest Xray: report reviewed Echo: report reviewed Cardiac cath: report reviewed - EKG Interpretation EKG results cardiology: personally reviewed (ECG with a.flutter, HR 87.), other (Telemetry reviewed with average HR previous 12 hours noted to be 89, a.flutter. PVCs noted. Longest pause 1.9 seconds.) Consult Discharge Plan - Plan Referrals: Andres Rudolph Jr, MD [Primary Care Provider] - 09/17/17 10:30 am <Senia Dang - Last Filed: 09/10/17 12:54> Date of Encounter: 09/10/17 - Attending Attestation I have personally performed a face to face evaluation on this patient. I have reviewed and agree with the care plan. History and Exam by me shows: 67 YO male with h/o Afib on AC presents with RVR and chest pain. [facility] 2017 unremarkable, will consider stress test to rule out ischemia in setting of ST chanegs. Possible tachy/caroline with mild lightheadedness yesterday. Holter with 4.6 second pause , follows with Dr. Mendenhall. Dheeraj SSS will consult EP Assessment and Plan Discussion w patient/family: The assessment and plan as outlined above was discussed with the patient and/or family members who expressed understanding and agreement. All questions were answered. Thank you for involving us in the care of your patient. Please call with any questions. History of Present Illness History of present illness: Mr. Yi is a 67 year old male All Systems Review: The remainder of the systems were reviewed and are negative Physical Examination Vital Signs, Last 4 Hours Temp Pulse Resp BP Pulse Ox 09/10/17 10:48 97.7 F 75 18 122/79 95 09/10/17 09:11 113/75 Results 09/10/17 02:39 09/10/17 02:39 Lab Results 09/10/17 09/10/17 09/10/17 02:39 02:39 08:41 WBC 8.8 Hgb 15.1 Hct 45.3 Plt Count 281 Sodium 135 L Potassium 4.1 Chloride 100 Carbon Dioxide 20 L BUN 20 Creatinine 0.99 Glucose 177 H Calcium 9.7 Magnesium 1.7 Troponin I < 0.03 < 0.03
--- NOTE | 2017-09-10 16:25 | Internal Med Progress Note ---
Date of Encounter: 09/10/17 Time of Encounter: 11:20 - Assessment and plan (1) Atrial flutter with rapid ventricular response Current Visit: Yes Status: Acute Assessment and plan: Patient is noted to have episodes of tachycardia and bradycardia, with several pauses on outpatient Holter monitoring, possible sick sinus syndrome. Patient was initially started on IV Cardizem drip for tachycardia, heart rate is improved at this time, home dose of by mouth Cardizem has been resumed. Continue sotalol at home dose. Continue telemetry monitoring, anticoagulation with Xarelto. EP cardiology consult during this admission. Of note, patient is noted to be on Sotalol and Nortryptiline at home, which has majpr interaction with potential long QT; close Telemetry monitoring and outpatient Neurology evaluation for possible tapering off TCA; (2) HTN (hypertension) Current Visit: Yes Status: Chronic Qualifiers: Hypertension type: essential hypertension Qualified Code(s): I10 - Essential (primary) hypertension (3) DVT prophylaxis Current Visit: Yes Status: Acute (4) Anxiety and depression Current Visit: Yes Status: Chronic (5) Chest pain Current Visit: Yes Status: Acute Assessment and plan: Intermittent chest pain, associated with tachycardia yesterday. Cardiology recommendations appreciated-recommend echocardiogram and nuclear stress test in a.m. Continue aspirin, statin, calcium channel nick. Qualifiers: Chest pain type: unspecified Qualified Code(s): R07.9 - Chest pain, unspecified - Time Spent With Patient Total time spent is greater than 50% in coordination of care (as documented) at patient's floor/unit and/or counseling patient: - Subjective Interval history: Reports feeling well. Improved chest discomfort and palpitations. No fever, chills, cough, shortness of breath. - Constitutional Vitals: Temp Pulse Resp BP Pulse Ox 97.8 F 79 18 105/73 96 09/10/17 15:35 09/10/17 15:35 09/10/17 15:35 09/10/17 15:35 09/10/17 15:35 General appearance: Present: A&O X 3, answers questions appropriately - Respiratory Respiratory exam: Present: CTAB. Absent: accessory muscle use, rales, rhonchi, wheezes - Cardiovascular Cardiovascular exam: Present: irregular rhythm, +S1, +S2. Absent: diastolic murmur, gallop, rubs, systolic murmur - GI/Abdominal GI/Abdominal exam: Present: normal bowel sounds, soft, no peritoneal signs. Absent: distended, tenderness - Extremities Exam Extremities exam: Present: full ROM, warm, radial pulses palpable and symmetrical. Absent: calf tenderness, cyanotic, pedal edema - Neurological Exam Neurological exam: Present: CN II-XII intact, oriented X3, no focal deficits. Absent: pronater drift, facial droop, speech deficit Internal Medicine: Result - Labs CBC & Chem 7: 09/10/17 02:39 09/10/17 02:39 Labs: Short CBC 09/10/17 Range/Units 02:39 WBC 8.8 (4.3-11.1) K/mcL Hgb 15.1 (12.9-16.9) g/dL Hct 45.3 (37.5-50.1) % Plt Count 281 (140-400) K/mcL Neutrophils # 7.5 (1.6-8.9) K/mcL BMP 09/10/17 02:39 Sodium 135 L Potassium 4.1 Chloride 100 Carbon Dioxide 20 L BUN 20 Creatinine 0.99 Glucose 177 H Calcium 9.7 Cardiac Enzymes 09/10/17 09/10/17 Range/Units 02:39 08:41 Troponin I < 0.03 < 0.03 (< 0.04) ng/mL - ABG Interpretation ABG results: PT/INR, D-dimer PT 21.0 Seconds (9.4-12.1) H 09/09/17 19:55 Consult Discharge Plan - Plan Referrals: Andres Rudolph Jr, MD [Primary Care Provider] - 09/17/17 10:30 am
[2017-09-10] MEDS ORDERED: Perflutren Lipid Microsphere 1.3 ML in 0.9 % Sodium Chloride 8.7 ML IVP ONE (16:32)
--- NOTE | 2017-09-10 18:36 | Electrocardiograph Report ---
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
[2017-09-10] MEDS: *HR* HYDROcodone/Acet 5/325 mg TABLET PO PRN (20:49)
[2017-09-11] MEDS ORDERED: Regadenoson 0.4 MG/5 ML SYRINGE IVP ONE (05:52)
[2017-09-11] MEDS: Fenofibrate 54 MG TABLET PO SCH (09:06)
[2017-09-11] MEDS: Diltiazem CD (24hr) 120 MG CAPSULE PO SCH (09:06)
[2017-09-11] MEDS: *HR* Rivaroxaban 10 MG TABLET PO SCH (09:06)
[2017-09-11] MEDS: Gabapentin 300 MG CAPSULE PO SCH ×3 (09:06→20:56)
[2017-09-11] MEDS: Aspirin 81 MG TAB.CHEW PO SCH (09:07)
[2017-09-11] MEDS: diazePAM 5 MG TABLET PO PRN (09:12)
[2017-09-11] MEDS: Latanoprost 2.5 ML BOTTLE LEFT EYE SCH (09:13)
[2017-09-11 10:05] LABS: BUN/Creatinine Ratio 22 (6-26); Blood Urea Nitrogen 22 mg/dL (8-23); Calcium 9.3 mg/dL (8.6-10.3); Carbon Dioxide 30 mEq/L (23-29); Chloride 103 mEq/L (98-107); Glucose 118 mg/dL (70-105); Magnesium 1.9 mg/dL (1.6-2.6); Osmolality,Calculated 292 (280-300); Phosphorous 3.2 mg/dL (2.7-4.5); Potassium 3.9 mEq/L (3.5-5.1); Sodium 139 mEq/L (136-145); eGFR For African Americans > 60 (> 60); eGFR For Non-African Americans > 60 (> 60)
--- NOTE | 2017-09-11 11:32 | Cardiology Progress Note ---
Date of Encounter: 09/11/17 Time of Encounter: 07:45 Assessment and Plan (1) Chest pain Current Visit: Yes Status: Acute Per cardiology: -Reported chest pressure. -Denies exertional symptoms. -Denies current chest pain/pressure. -ECG with no acute ischemic changes. -Troponins negative x3. -12/2014 TTE with LVEF 60%, moderate diastolic dysfunction, no segmental wall motion abnormalities noted. -2011 [facility] with non-obstructive CAD. -ON asa, statin, BB. -Stress test with possible area of artifact, cannot rule out ischemia. -TTE with LVEF 60-65%, no segmental wall motion abnormalities noted. -Suspect chest pain related to a.flutter. Qualifiers: Chest pain type: unspecified Qualified Code(s): R07.9 - Chest pain, unspecified (2) Atrial flutter Current Visit: Yes Status: Chronic Per cardiology: -Known history of a.fib/flutter s/p ablation. -Currently on sotalol 120mg Q12 hours and cardizem CD 120mg. -Follows with Dr.John Mendenhall, who states in outpatient note, would like to increase sotalol. -Average HR previous 12 hours noted to eb 79, a.flutter. Patient converted to SR around 0549. Longest pause 2.75 seconds, with conversion to SR. -Holter 05/2017 with SR, frequent a.fib/flutter episodes, several pauses up to 4.6 seconds nocturnal, and with conversion to SR. -Anticoagulated with xarelto. -ECG 09/09/17 with a.flutter, HR 87. QT 368/QTc 413ms. -Discussed and reviewed with , patient is stable for discharge home. However, if patient would like to stay inpatient, will have EP see tomorrow. Of note, if sotalol would be increased, would possibly need to be admitted until Saturday. -Patient states he would like to discuss with his and decide about staying to see EP tomorrow. Qualifiers: Atrial flutter type: typical Qualified Code(s): I48.3 - Typical atrial flutter Discussion w patient/family: The assessment and plan as outlined above was discussed with the patient who expressed understanding and agreement. All questions were answered. Thank you for involving us in the care of your patient. Please call with any questions. Discussed and reviewed with . Subjective Principal diagnosis: a.flutter Interval history: Patient seen and examined in stress lab. Denies chest pain. Denies shortness of breath. Denies palpitations/fluttering Objective Vital Signs, Last 4 Hours Temp Pulse Resp BP Pulse Ox 09/11/17 11:25 98.8 F 55 18 126/83 99 General: Conversant, No Apparent Distress HEENT: Atraumatic, Normocephaly, Mucus Membranes Moist Neck: No JVD, Normal carotid pulses Cardiac: Reg Rate and Rhythm, Normal S1 and S2, No Murmur Lungs: Normal Breath Sounds, No Wheeze, Rales, Rhonchi Neuro: Alert and responsive, No focal deficits noted Abdomen: Soft, Non-Tender Skin: No rashes noted on visualized skin Musculoskeletal: No Chest Wall Tenderness Extremities: No Clubbing, No Cyanosis, No Edema, Normal Pulses Results 09/10/17 02:39 09/11/17 09:00 Lab Results Impressions Echocardiogram 09/10/17 11:42 Impressions: LVEF 60-65%. Normal LV chamber size, wall thickness and function. Indeterminate diastolic function. Normal right ventricular structure and function. No evidence of pulmonary hypertension. No significant valvular dysfunction. Left Ventricular Wall Motion: Rest Echo Findings All wall segments showed normal motion. Findings: Study Quality * Technically adequate exam. ECG Findings * Atrial flutter. Left Ventricle * LVEF 60-65%. * Normal LV chamber size, wall thickness and function. * Indeterminate diastolic function. Right Ventricle * Normal right ventricular structure and function. Left Atrium * Moderately dilated left atrium. Right Atrium * Mildly dilated right atrium. Aortic Valve * Trileaflet aortic valve with normal function. * No aortic regurgitation. * No aortic stenosis. Mitral Valve * Normal mitral valve structure and function. * No mitral regurgitation. * No mitral stenosis. Tricuspid Valve * Normal tricuspid valve structure and function. * Trace tricuspid regurgitation. * No evidence of pulmonary hypertension. Pulmonic Valve * Pulmonic valve not well visualized. * Trace pulmonic regurgitation. Aorta * Aortic root measures 3.9 cm at the level of Sinuses of Valsalva. Pericardium * The pericardium appears normal. IVC * The IVC is not well evaluated. Pulmonary Artery * Normal visualized portions of the main pulmonary artery. Active Medications Acetaminophen (Tylenol) 650 mg PO Q6HR PRN PRN Reason: Mild Pain/Fever Stop: 03/12/18 00:24 Hydrocodone Bitart/Acetaminophen (Elmo 5-325 Mg) 1 tab PO Q6H PRN PRN Reason: Moderate to Severe Pain Stop: 03/12/18 00:27 Last Admin: 09/10/17 20:49 Dose: 1 tab Aspirin (Aspirin) 81 mg PO DAILY [facility] Stop: 03/12/18 09:01 Last Admin: 09/11/17 09:07 Dose: 81 mg Atorvastatin Calcium (Lipitor) 10 mg PO HS [facility] Stop: 03/12/18 21:01 Last Admin: 09/10/17 20:40 Dose: 10 mg Diazepam (Valium) 5 mg PO TID PRN PRN Reason: anxiety Stop: 03/11/18 23:23 Last Admin: 09/11/17 09:12 Dose: 5 mg Diltiazem HCl (Cardizem Cd) 120 mg PO DAILY [facility] Stop: 03/12/18 09:01 Last Admin: 09/11/17 09:06 Dose: 120 mg Fenofibrate (Tricor) 162 mg PO DAILY [facility] Stop: 03/12/18 09:01 Last Admin: 09/11/17 09:06 Dose: 162 mg Gabapentin (Neurontin) 600 mg PO TID [facility] Stop: 03/11/18 23:31 Last Admin: 09/11/17 09:06 Dose: 600 mg Hydralazine HCl (Hydralazine) 10 mg IVP Q6HR PRN PRN Reason: Hypertension Stop: 03/11/18 23:33 Latanoprost (Xalatan) 1 drop LEFT EYE DAILY [facility] PRN Reason: Protocol Stop: 03/12/18 09:01 Last Admin: 09/11/17 09:13 Dose: 1 drop Naloxone HCl (Narcan) 0.4 mg IVP Q2MIN PRN PRN Reason: SEE COMMENTS Stop: 03/11/18 23:15 Nitroglycerin (Nitroglycerin) 0.4 mg SL Q5MIN PRN PRN Reason: Chest Pain Stop: 03/11/18 19:32 Nortriptyline HCl (Pamelor) 25 mg PO BID [facility] Stop: 03/12/18 09:01 Last Admin: 09/11/17 09:07 Dose: 25 mg Omeprazole (Prilosec) 40 mg PO DAILY [facility] Stop: 03/12/18 09:01 Last Admin: 09/11/17 09:07 Dose: 40 mg Oxybutynin Chloride (Ditropan) 5 mg PO BID [facility] PRN Reason: Protocol Stop: 03/12/18 09:01 Last Admin: 09/11/17 09:06 Dose: 5 mg Potassium Phos/Sodium Phos (Neutra-Phos) 1 each PO BID [facility] PRN Reason: Protocol Stop: 03/12/18 21:01 Last Admin: 09/11/17 09:06 Dose: 1 each Rivaroxaban (Xarelto) 20 mg PO DAILY [facility] Stop: 03/11/18 23:31 Last Admin: 09/11/17 09:06 Dose: 20 mg Sotalol HCl (Betapace) 120 mg PO Q12HR [facility] Stop: 03/12/18 00:36 Last Admin: 09/11/17 09:07 Dose: 120 mg Timolol Maleate (Timolol Maleate 0.5%) 1 drop LEFT EYE DAILY [facility] PRN Reason: Protocol Stop: 03/12/18 09:01 Last Admin: 09/11/17 09:12 Dose: 1 drop Laboratory Tests 09/09/17 09/10/17 09/10/17 19:55 02:39 02:39 Hgb 15.1 Potassium Creatinine Magnesium Troponin I < 0.03 < 0.03 TSH 0.903 09/10/17 09/11/17 08:41 09:00 Hgb Potassium 3.9 Creatinine 1.00 Magnesium 1.9 Troponin I < 0.03 TSH - Imaging and Cardiology Chest Xray: report reviewed Stress Test: report reviewed Echo: report reviewed - EKG Interpretation EKG results cardiology: other (Telemetry reviewed with average HR previous 12 hours noted to be 76, a.flutter. Converted to SR about 0549. 2.75 second pause noted with conversion to SR. PVCs noted.) - VTE Documentation of Mechanical Device: Graduated compression elastic hosiery Consult Discharge Plan - Plan Referrals: Andres Rudolph Jr, MD [Primary Care Provider] - 09/17/17 10:30 am
--- NOTE | 2017-09-11 16:20 | Internal Med Progress Note ---
Date of Encounter: 09/11/17 Time of Encounter: 12:45 - Assessment and plan (1) Atrial flutter with rapid ventricular response Current Visit: Yes Status: Acute Assessment and plan: Patient is noted to have episodes of tachycardia and bradycardia, with several pauses on outpatient Holter monitoring, possible sick sinus syndrome. Continue Cardizem and sotalol at home dose. Continue telemetry monitoring, anticoagulation with Xarelto. HR currently well-controlled. Patient would benefit from EP cardiology consult during this admission. Of note, patient is noted to be on Sotalol and Nortryptiline at home, which has majpr interaction with potential long QT; close Telemetry monitoring and outpatient Neurology evaluation for possible tapering off TCA; (2) HTN (hypertension) Current Visit: Yes Status: Chronic Qualifiers: Hypertension type: essential hypertension Qualified Code(s): I10 - Essential (primary) hypertension (3) DVT prophylaxis Current Visit: Yes Status: Acute (4) Anxiety and depression Current Visit: Yes Status: Chronic (5) Chest pain Current Visit: Yes Status: Acute Assessment and plan: Intermittent chest pain, associated with tachycardia yesterday. Cardiology recommendations appreciated-recommend echocardiogram and nuclear stress test; Continue aspirin, statin, calcium channel nick. Echocardiogram showed preserved ejection fraction, indeterminate diastolic function. Nuclear stress test was abnormal-small sized, primarily fixed perfusion defect involving the at [place] inferior wall, artifact versus ischemia. Qualifiers: Chest pain type: unspecified Qualified Code(s): R07.9 - Chest pain, unspecified - Time Spent With Patient Total time spent is greater than 50% in coordination of care (as documented) at patient's floor/unit and/or counseling patient: - Subjective Interval history: Reports feeling well. Improved chest discomfort and palpitations. No fever, chills, cough, shortness of breath. Underwent nuclear stress testing today; - Constitutional Vitals: Temp Pulse Resp BP Pulse Ox 98.8 F 55 18 126/83 99 09/11/17 11:25 09/11/17 11:25 09/11/17 11:25 09/11/17 11:25 09/11/17 11:25 General appearance: Present: A&O X 3, obese, answers questions appropriately - Respiratory Respiratory exam: Present: CTAB. Absent: accessory muscle use, rales, rhonchi, wheezes - Cardiovascular Cardiovascular exam: Present: RRR, +S1, +S2. Absent: diastolic murmur, gallop, rubs, systolic murmur - GI/Abdominal GI/Abdominal exam: Present: normal bowel sounds, soft (obese), no peritoneal signs. Absent: distended, tenderness Internal Medicine: Result - Labs CBC & Chem 7: 09/10/17 02:39 09/11/17 09:00 Labs: BMP 09/11/17 09:00 Sodium 139 Potassium 3.9 Chloride 103 Carbon Dioxide 30 H BUN 22 Creatinine 1.00 Glucose 118 H Calcium 9.3 - ABG Interpretation ABG results: PT/INR, D-dimer PT 21.0 Seconds (9.4-12.1) H 09/09/17 19:55 - Impressions Impressions Echocardiogram 09/10/17 11:42 Impressions: LVEF 60-65%. Normal LV chamber size, wall thickness and function. Indeterminate diastolic function. Normal right ventricular structure and function. No evidence of pulmonary hypertension. No significant valvular dysfunction. Left Ventricular Wall Motion: Rest Echo Findings All wall segments showed normal motion. Findings: Study Quality * Technically adequate exam. ECG Findings * Atrial flutter. Left Ventricle * LVEF 60-65%. * Normal LV chamber size, wall thickness and function. * Indeterminate diastolic function. Right Ventricle * Normal right ventricular structure and function. Left Atrium * Moderately dilated left atrium. Right Atrium * Mildly dilated right atrium. Aortic Valve * Trileaflet aortic valve with normal function. * No aortic regurgitation. * No aortic stenosis. Mitral Valve * Normal mitral valve structure and function. * No mitral regurgitation. * No mitral stenosis. Tricuspid Valve * Normal tricuspid valve structure and function. * Trace tricuspid regurgitation. * No evidence of pulmonary hypertension. Pulmonic Valve * Pulmonic valve not well visualized. * Trace pulmonic regurgitation. Aorta * Aortic root measures 3.9 cm at the level of Sinuses of Valsalva. Pericardium * The pericardium appears normal. IVC * The IVC is not well evaluated. Pulmonary Artery * Normal visualized portions of the main pulmonary artery. - VTE Documentation of Mechanical Device: Graduated compression elastic hosiery Consult Discharge Plan - Plan Referrals: Andres Rudolph Jr, MD [Primary Care Provider] - 09/17/17 10:30 am
[2017-09-11] MEDS: *HR* HYDROcodone/Acet 5/325 mg TABLET PO PRN (22:19)
[2017-09-12] MEDS: *HR* HYDROcodone/Acet 5/325 mg TABLET PO PRN ×2 (06:36→20:51)
[2017-09-12] MEDS: Fenofibrate 54 MG TABLET PO SCH (08:41)
[2017-09-12] MEDS: Gabapentin 300 MG CAPSULE PO SCH ×3 (08:41→20:47)
[2017-09-12] MEDS: Aspirin 81 MG TAB.CHEW PO SCH (08:41)
[2017-09-12] MEDS: *HR* Rivaroxaban 10 MG TABLET PO SCH (08:41)
[2017-09-12] MEDS: Diltiazem CD (24hr) 120 MG CAPSULE PO SCH (08:41)
[2017-09-12] MEDS: Latanoprost 2.5 ML BOTTLE LEFT EYE SCH (09:00)
--- NOTE | 2017-09-12 13:00 | Electrophysiology Consult Note ---
<Le Barros - Last Filed: 09/12/17 13:24> Date of Encounter: 09/12/17 Time of Encounter: 10:00 Assessment and Plan (1) Chest pain Current Visit: Yes Status: Acute Per EP: -See general cardiology note. Qualifiers: Chest pain type: unspecified Qualified Code(s): R07.9 - Chest pain, unspecified (2) Atrial flutter Current Visit: Yes Status: Chronic Per EP: -Known history of a.fib/flutter s/p ablation. -Currently on sotalol 120mg Q12 hours and cardizem CD 120mg. -Follows with Dr.John Mendenhall, who states in outpatient note, would like to increase sotalol. -Average HR previous 12 hours noted to be 57, SB. -Holter 05/2017 with SR, frequent a.fib/flutter episodes, several pauses up to 4.6 seconds nocturnal, and with conversion to SR. -Anticoagulated with xarelto. -ECG 09/09/17 with a.flutter, HR 87. QT 368/QTc 413ms. -Discussed and reviewed with Dr.John Mendenhall, will increase sotalol 180mg Q12 hours. With bradycardia, will stop cardizem. -ECG daily. -Will need to be inpatient for 5 total doses of increased sotalol. -Will continue to monitor. Qualifiers: Atrial flutter type: typical Qualified Code(s): I48.3 - Typical atrial flutter Discussion w patient/family: The assessment and plan as outlined above was discussed with the patient who expressed understanding and agreement. All questions were answered. Thank you for involving us in the care of your patient. Please call with any questions. Discussed and reviewed with Dr.John Mendenhall. History of Present Illness Consult date: 09/12/17 Requesting physician: Slava Hidalgo Consult reason: a.flutter Chief complaint: elevated HR. History of present illness: Mr. Yi is a 67 year old male with a relevant past medical history of a.fib/ flutter s/p ablation, syncope, HLD, anemia, anxiety, gastritis, non-obstructive CAD who presented to [facility] with complaints of high HR. EP has been consulted for recurrent atrial flutter. Patient denies palpitations, fluttering. Denies dizziness, lightheadedness. Had reported chest pain while in atrial flutter. Denies current chest pain. Denies increased shortness of breath. Past Med Surg Social Fam HX - Past Medical History Attestation: Yes The following information was validated with the patient. Source: patient, old records reviewed Medical history: arthritis, atrial fibrillation, GERD, hyperlipidemia, hypertension Additional medical history: dysfunctional vocal cord Psychiatric history: anxiety, depression - Past Surgical History Surgical History: cholecystectomy, knee replacement, orthopedic, other, other Additional surgical history: Right knee revision. Bulding disc - Social History Smoking Status: Never smoker Smokeless Tobacco Status: No Alcohol use: none Drug use: none - Family History Mother Living Status: Hx Family Cardiac Disorders: Yes ([place]) Father Living Status: Hx Family Cardiac Disorders: Yes Medications and Allergies Rivaroxaban [Xarelto] 20 mg PO DAILY 03/02/16 [History] diazePAM [Valium] 5 mg PO TID 03/02/16 [History] Aspirin 81 mg PO DAILY 05/28/16 [History] Oxybutynin [Ditropan] 5 mg PO BID 05/28/16 [History] Nortriptyline [Pamelor] 25 mg PO BID 11/13/16 [History] Omeprazole [PriLOSEC] 40 mg PO DAILY 11/13/16 [History] Sotalol HCl [Betapace] 120 mg PO BID 11/13/16 [History] Nystatin/Triamcinolone OINT [Mycolog] 1 appl TP DAILY 01/13/17 [History] Timolol Maleate 0.5% 1 drop LEFT EYE DAILY 01/13/17 [History] Atorvastatin [Lipitor] 10 mg PO HS 09/09/17 [History] Fenofibrate Nanocrystallized [Triglide] 160 mg PO DAILY 09/09/17 [History] Gabapentin [Neurontin] 600 mg PO TID 09/09/17 [History] HYDROcodone/Acet 5/325 mg [[place]igonier 5-325 mg] 1 tab PO Q6H PRN 09/09/17 [History] Latanoprost [Xalatan] 1 drop LEFT EYE DAILY 09/09/17 [History] Diltiazem CD (24hr) [Cardizem CD] 120 mg PO DAILY 09/10/17 [History] 3 Allergy/AdvReac Type Severity Reaction Status Date / Time azithromycin Allergy See Verified 09/09/17 21:03 Comments ciprofloxacin AdvReac Weakness Verified 09/09/17 21:03 clavulanic acid AdvReac Nausea Verified 09/09/17 21:03 [From Augmentin] Sulindac AdvReac Nausea Verified 09/09/17 21:03 All Systems Review: The remainder of the systems were reviewed and are negative - Cardiovascular Cardiovascular: as per HPI, chest pain at rest, rapid heart rate Physical Examination Vital Signs, Last 4 Hours Temp Pulse Resp BP Pulse Ox 09/12/17 11:13 97.7 F 58 17 133/92 93 General: Conversant, No Apparent Distress HEENT: Atraumatic, Normocephaly, Mucus Membranes Moist Neck: No JVD, Normal carotid pulses Cardiac: Reg Rate and Rhythm, Normal S1 and S2, No Murmur Lungs: Normal Breath Sounds, No Wheeze, Rales, Rhonchi Neuro: Alert and responsive, No focal deficits noted Abdomen: Soft, Non-Tender Skin: No rashes noted on visualized skin Musculoskeletal: No Chest Wall Tenderness Extremities: No Clubbing, No Cyanosis, No Edema, Normal Pulses Results 09/10/17 02:39 09/11/17 09:00 Active Medications Acetaminophen (Tylenol) 650 mg PO Q6HR PRN PRN Reason: Mild Pain/Fever Stop: 03/12/18 00:24 Hydrocodone Bitart/Acetaminophen ([place]igonier 5-325 Mg) 1 tab PO Q6H PRN PRN Reason: Moderate to Severe Pain Stop: 03/12/18 00:27 Last Admin: 09/12/17 06:36 Dose: 1 tab Aspirin (Aspirin) 81 mg PO DAILY GEGE Stop: 03/12/18 09:01 Last Admin: 09/12/17 08:41 Dose: 81 mg Atorvastatin Calcium (Lipitor) 10 mg PO HS GEGE Stop: 03/12/18 21:01 Last Admin: 09/11/17 20:56 Dose: 10 mg Diazepam (Valium) 5 mg PO TID PRN PRN Reason: anxiety Stop: 03/11/18 23:23 Last Admin: 09/11/17 09:12 Dose: 5 mg Fenofibrate (Tricor) 162 mg PO DAILY GEGE Stop: 03/12/18 09:01 Last Admin: 09/12/17 08:41 Dose: 162 mg Gabapentin (Neurontin) 600 mg PO TID GEGE Stop: 03/11/18 23:31 Last Admin: 09/12/17 08:41 Dose: 600 mg Hydralazine HCl (Hydralazine) 10 mg IVP Q6HR PRN PRN Reason: Hypertension Stop: 03/11/18 23:33 Latanoprost (Xalatan) 1 drop LEFT EYE DAILY GEGE PRN Reason: Protocol Stop: 03/12/18 09:01 Last Admin: 09/12/17 09:00 Dose: 1 drop Naloxone HCl (Narcan) 0.4 mg IVP Q2MIN PRN PRN Reason: SEE COMMENTS Stop: 03/11/18 23:15 Nitroglycerin (Nitroglycerin) 0.4 mg SL Q5MIN PRN PRN Reason: Chest Pain Stop: 03/11/18 19:32 Nortriptyline HCl (Pamelor) 25 mg PO BID GEGE Stop: 03/12/18 09:01 Last Admin: 09/12/17 08:41 Dose: 25 mg Omeprazole (Prilosec) 40 mg PO DAILY GEGE Stop: 03/12/18 09:01 Last Admin: 09/12/17 08:41 Dose: 40 mg Oxybutynin Chloride (Ditropan) 5 mg PO BID GEGE PRN Reason: Protocol Stop: 03/12/18 09:01 Last Admin: 09/12/17 08:41 Dose: 5 mg Potassium Phos/Sodium Phos (Neutra-Phos) 1 each PO BID GEGE PRN Reason: Protocol Stop: 03/12/18 21:01 Last Admin: 09/12/17 08:41 Dose: 1 each Rivaroxaban (Xarelto) 20 mg PO DAILY GEGE Stop: 03/11/18 23:31 Last Admin: 09/12/17 08:41 Dose: 20 mg Sotalol HCl (Betapace) 180 mg PO Q12HR GEGE Stop: 03/14/18 11:06 Last Admin: 09/12/17 11:39 Dose: 180 mg Timolol Maleate (Timolol Maleate 0.5%) 1 drop LEFT EYE DAILY GEGE PRN Reason: Protocol Stop: 03/12/18 09:01 Last Admin: 09/12/17 08:43 Dose: 1 drop Laboratory Tests 09/09/17 09/10/17 09/10/17 19:55 02:39 02:39 Hgb 15.1 Potassium Creatinine Magnesium Troponin I < 0.03 < 0.03 TSH 0.903 09/10/17 09/11/17 08:41 09:00 Hgb Potassium 3.9 Creatinine 1.00 Magnesium 1.9 Troponin I < 0.03 TSH - Imaging and Cardiology Chest Xray: report reviewed Stress Test: report reviewed Echo: report reviewed - EKG Interpretation EKG results cardiology: personally reviewed (ECG with atrial flutter, HR 87. QT 368, QTc 413ms.), other (Telmetry reviewed with average HR previous 12 hours noted to be 57, SB. PVCs and PACs noted. No significant pauses noted.) Consult Discharge Plan - Plan Referrals: Andres Rudolph Jr, MD [Primary Care Provider] - 09/17/17 10:30 am <Bon Mendenhall - Last Filed: 09/12/17 13:40> Date of Encounter: 09/12/17 - Attending Attestation I have personally performed a face to face evaluation on this patient. I have reviewed and agree with the care plan. History and Exam by me shows: Recurrent PAF with pauses during conversion to NSR. Would increase sotalol and discontinue cardizem, will monitor. Assessment and Plan Discussion w patient/family: The assessment and plan as outlined above was discussed with the patient and/or family members who expressed understanding and agreement. All questions were answered. Thank you for involving us in the care of your patient. Please call with any questions. History of Present Illness History of present illness: Mr. Yi is a 67 year old male All Systems Review: The remainder of the systems were reviewed and are negative Physical Examination Vital Signs, Last 4 Hours Temp Pulse Resp BP Pulse Ox 09/12/17 11:13 97.7 F 58 17 133/92 93 Results 09/10/17 02:39 09/11/17 09:00
--- NOTE | 2017-09-12 16:50 | Internal Med Progress Note ---
Date of Encounter: 09/12/17 Time of Encounter: 12:40 - Assessment and plan (1) Atrial flutter with rapid ventricular response Current Visit: Yes Status: Acute Assessment and plan: Patient is noted to have episodes of tachycardia and bradycardia, with several pauses on outpatient Holter monitoring, possible sick sinus syndrome?. Continue telemetry monitoring, anticoagulation with Xarelto. HR currently well- controlled with few episodes of bradycardia in 50s. EP cardiology recommendations appreciated-sotalol dose has been increased to 180 mg twice daily, Cardizem is being discontinued. Continue telemetry monitoring and QTC review. Of note, patient is noted to be on Sotalol and Nortryptiline at home, which has majpr interaction with potential long QT; close Telemetry monitoring and outpatient Neurology evaluation for possible tapering off TCA; (2) HTN (hypertension) Current Visit: Yes Status: Chronic Qualifiers: Hypertension type: essential hypertension Qualified Code(s): I10 - Essential (primary) hypertension (3) DVT prophylaxis Current Visit: Yes Status: Acute (4) Anxiety and depression Current Visit: Yes Status: Chronic (5) Chest pain Current Visit: Yes Status: Resolved Assessment and plan: Intermittent chest pain, associated with tachycardia yesterday. Cardiology recommendations appreciated-recommend echocardiogram and nuclear stress test; Continue aspirin, statin, calcium channel nick. Echocardiogram showed preserved ejection fraction, indeterminate diastolic function. Nuclear stress test was abnormal-small sized, primarily fixed perfusion defect involving the apical inferior wall, artifact versus ischemia. No further testing recommended as inpatient; Qualifiers: Chest pain type: unspecified Qualified Code(s): R07.9 - Chest pain, unspecified - Time Spent With Patient Total time spent is greater than 50% in coordination of care (as documented) at patient's floor/unit and/or counseling patient: - Subjective Interval history: Reports feeling well. Denies chest discomfort and palpitations. No fever, chills, cough, shortness of breath. Sotalol dose is being increased, awaiting EP cardiology evaluation. - Constitutional Vitals: Temp Pulse Resp BP Pulse Ox 98.7 F 62 16 118/68 92 09/12/17 15:50 09/12/17 15:50 09/12/17 15:50 09/12/17 15:50 09/12/17 15:50 General appearance: Present: A&O X 3, obese, answers questions appropriately - Respiratory Respiratory exam: Present: CTAB. Absent: accessory muscle use, rales, rhonchi, wheezes - Cardiovascular Cardiovascular exam: Present: bradycardia, RRR, +S1, +S2. Absent: diastolic murmur, gallop, rubs, systolic murmur - GI/Abdominal GI/Abdominal exam: Present: normal bowel sounds, soft (obese), no peritoneal signs. Absent: distended, tenderness - Extremities Exam Extremities exam: Present: pedal edema (trace), warm, radial pulses palpable and symmetrical. Absent: calf tenderness, cyanotic Internal Medicine: Result - Labs CBC & Chem 7: 09/10/17 02:39 09/11/17 09:00 - ABG Interpretation ABG results: PT/INR, D-dimer PT 21.0 Seconds (9.4-12.1) H 09/09/17 19:55 - VTE Documentation of Mechanical Device: Graduated compression elastic hosiery Consult Discharge Plan - Plan Referrals: Andres Rudolph Jr, MD [Primary Care Provider] - 09/17/17 10:30 am
[2017-09-13 05:40] LABS: BUN/Creatinine Ratio 17 (6-26); Blood Urea Nitrogen 17 mg/dL (8-23); Calcium 9.7 mg/dL (8.6-10.3); Carbon Dioxide 32 mEq/L (23-29); Chloride 102 mEq/L (98-107); Glucose 90 mg/dL (70-105); Magnesium 1.8 mg/dL (1.6-2.6); Osmolality,Calculated 289 (280-300); Potassium 4.1 mEq/L (3.5-5.1); Sodium 139 mEq/L (136-145); eGFR For African Americans > 60 (> 60); eGFR For Non-African Americans > 60 (> 60)
[2017-09-13] MEDS: Fenofibrate 54 MG TABLET PO SCH (09:16)
[2017-09-13] MEDS: Gabapentin 300 MG CAPSULE PO SCH ×3 (09:16→20:55)
[2017-09-13] MEDS: *HR* Rivaroxaban 10 MG TABLET PO SCH (09:16)
[2017-09-13] MEDS: diazePAM 5 MG TABLET PO PRN (09:16)
[2017-09-13] MEDS: Aspirin 81 MG TAB.CHEW PO SCH (09:16)
--- NOTE | 2017-09-13 09:59 | Electrophysiology ProgressNote ---
Date of Encounter: 09/13/17 Time of Encounter: 09:30 Assessment and Plan (1) Chest pain Current Visit: Yes Status: Resolved Per EP: -See general cardiology note. Qualifiers: Chest pain type: unspecified Qualified Code(s): R07.9 - Chest pain, unspecified (2) Atrial flutter Current Visit: Yes Status: Chronic Per EP: -Known history of a.fib/flutter s/p ablation. -Currently on sotalol 180mg q12 hours. -Follows with Dr.John Mendenhall, who states in outpatient note, would like to increase sotalol. -Average HR previous 12 hours noted to be 57, SB. -Holter 05/2017 with SR, frequent a.fib/flutter episodes, several pauses up to 4.6 seconds nocturnal, and with conversion to SR. -Anticoagulated with xarelto. -ECG 09/09/17 with a.flutter, HR 87. QT 368/QTc 413ms. -ECG when in sinus 09/12/17 with SB, HR 58. QT 472, QTc 468ms. Use as baseline ECG -ECG 09/13/17 s/p 2 total doses of increase sotalol with SB, HR 51. QT 465, QTc 441ms. ECGs reviewed with Dr.John Mendenhall. -Continue current regimen. -ECG daily. -Will need to be inpatient for 5 total doses of increased sotalol. 5th dose will be Saturday. -Will continue to monitor. Qualifiers: Atrial flutter type: typical Qualified Code(s): I48.3 - Typical atrial flutter Discussion w patient/family: The assessment and plan as outlined above was discussed with the patient who expressed understanding and agreement. All questions were answered. Thank you for involving us in the care of your patient. Please call with any questions. Discussed and reviewed with Dr.John Mendenhall. Subjective Principal diagnosis: a.flutter Interval history: Patient states he is doing well today. Denies complaints. Objective Vital Signs, Last 4 Hours Temp Pulse Resp BP Pulse Ox 09/13/17 07:30 98.7 F 53 18 141/72 92 General: Conversant, No Apparent Distress HEENT: Atraumatic, Normocephaly, Mucus Membranes Moist Neck: No JVD, Normal carotid pulses Cardiac: Reg Rate and Rhythm, Normal S1 and S2, No Murmur Lungs: Normal Breath Sounds, No Wheeze, Rales, Rhonchi Neuro: Alert and responsive, No focal deficits noted Abdomen: Soft, Non-Tender Skin: No rashes noted on visualized skin Musculoskeletal: No Chest Wall Tenderness Extremities: No Clubbing, No Cyanosis, No Edema, Normal Pulses Results 09/10/17 02:39 09/13/17 05:01 Lab Results Active Medications Acetaminophen (Tylenol) 650 mg PO Q6HR PRN PRN Reason: Mild Pain/Fever Stop: 03/12/18 00:24 Last Admin: 09/12/17 15:59 Dose: 650 mg Hydrocodone Bitart/Acetaminophen ([place] 5-325 Mg) 1 tab PO Q6H PRN PRN Reason: Moderate to Severe Pain Stop: 03/12/18 00:27 Last Admin: 09/12/17 20:51 Dose: 1 tab Aspirin (Aspirin) 81 mg PO DAILY GEGE Stop: 03/12/18 09:01 Last Admin: 09/13/17 09:16 Dose: 81 mg Atorvastatin Calcium (Lipitor) 10 mg PO HS GEGE Stop: 03/12/18 21:01 Last Admin: 09/12/17 20:47 Dose: 10 mg Diazepam (Valium) 5 mg PO TID PRN PRN Reason: anxiety Stop: 03/11/18 23:23 Last Admin: 09/13/17 09:16 Dose: 5 mg Fenofibrate (Tricor) 162 mg PO DAILY GEGE Stop: 03/12/18 09:01 Last Admin: 09/13/17 09:16 Dose: 162 mg Gabapentin (Neurontin) 600 mg PO TID GEGE Stop: 03/11/18 23:31 Last Admin: 09/13/17 09:16 Dose: 600 mg Hydralazine HCl (Hydralazine) 10 mg IVP Q6HR PRN PRN Reason: Hypertension Stop: 03/11/18 23:33 Latanoprost (Xalatan) 1 drop LEFT EYE HS GEGE PRN Reason: Protocol Stop: 03/15/18 21:01 Naloxone HCl (Narcan) 0.4 mg IVP Q2MIN PRN PRN Reason: SEE COMMENTS Stop: 03/11/18 23:15 Nitroglycerin (Nitroglycerin) 0.4 mg SL Q5MIN PRN PRN Reason: Chest Pain Stop: 03/11/18 19:32 Nortriptyline HCl (Pamelor) 25 mg PO BID GEGE Stop: 03/12/18 09:01 Last Admin: 09/13/17 09:15 Dose: 25 mg Omeprazole (Prilosec) 40 mg PO DAILY GEGE Stop: 03/12/18 09:01 Last Admin: 09/13/17 09:15 Dose: 40 mg Oxybutynin Chloride (Ditropan) 5 mg PO BID GEGE PRN Reason: Protocol Stop: 03/12/18 09:01 Last Admin: 09/13/17 09:16 Dose: 5 mg Potassium Phos/Sodium Phos (Neutra-Phos) 1 each PO BID GEGE PRN Reason: Protocol Stop: 03/12/18 21:01 Last Admin: 09/13/17 09:16 Dose: 1 each Rivaroxaban (Xarelto) 20 mg PO DAILY [facility] Stop: 03/11/18 23:31 Last Admin: 09/13/17 09:16 Dose: 20 mg Sotalol HCl (Betapace) 180 mg PO Q12HR GEGE Stop: 03/14/18 11:06 Last Admin: 09/13/17 06:10 Dose: 180 mg Timolol Maleate (Timolol Maleate 0.5%) 1 drop LEFT EYE DAILY GEGE PRN Reason: Protocol Stop: 03/12/18 09:01 Last Admin: 09/13/17 09:17 Dose: 1 drop Laboratory Tests 09/10/17 09/13/17 02:39 05:01 Hgb 15.1 Potassium 4.1 Creatinine 1.01 Magnesium 1.8 - Imaging and Cardiology Chest Xray: report reviewed Stress Test: report reviewed Echo: report reviewed - EKG Interpretation EKG results cardiology: personally reviewed (ECG today with SB, HR 51. QT 465, QTc 441ms.), other (Telemetry reviewed with average HR previous 12 hours noted to be 55, SB. Minimum HR 47 at 0442. PVCs and PACs noted.) - VTE Documentation of Mechanical Device: Graduated compression elastic hosiery Consult Discharge Plan - Plan Referrals: Andres Rudolph Jr, MD [Primary Care Provider] - 09/17/17 10:30 am
[2017-09-13] MEDS: *HR* HYDROcodone/Acet 5/325 mg TABLET PO PRN ×2 (14:36→20:55)
--- NOTE | 2017-09-13 16:51 | Internal Med Progress Note ---
Date of Encounter: 09/13/17 Time of Encounter: 11:30 - Assessment and plan (1) Atrial flutter with rapid ventricular response Current Visit: Yes Status: Acute Assessment and plan: Patient is noted to have episodes of tachycardia and bradycardia, with several pauses on outpatient Holter monitoring, possible sick sinus syndrome?. Continue telemetry monitoring, anticoagulation with Xarelto. HR currently well- controlled with few episodes of bradycardia in 50s. EP cardiology recommendations appreciated-sotalol dose has been increased to 180 mg twice daily, Cardizem discontinued. Continue telemetry monitoring and QTC review. Anticipate discharge in am after 5th dose of Sotalol. Of note, patient is noted to be on Sotalol and Nortryptiline at home, which has majpr interaction with potential long QT; close Telemetry monitoring and outpatient Neurology evaluation for possible tapering off TCA; (2) HTN (hypertension) Current Visit: Yes Status: Chronic Qualifiers: Hypertension type: essential hypertension Qualified Code(s): I10 - Essential (primary) hypertension (3) DVT prophylaxis Current Visit: Yes Status: Acute (4) Anxiety and depression Current Visit: Yes Status: Chronic (5) Chest pain Current Visit: Yes Status: Resolved Qualifiers: Chest pain type: unspecified Qualified Code(s): R07.9 - Chest pain, unspecified - Time Spent With Patient Total time spent is greater than 50% in coordination of care (as documented) at patient's floor/unit and/or counseling patient: - Subjective Interval history: Reports feeling well. Denies chest discomfort and palpitations. No fever, chills, cough, shortness of breath. Sotalol dose has been increased, tolerating well; - Constitutional Vitals: Temp Pulse Resp BP Pulse Ox 98.4 F 76 19 143/92 93 09/13/17 15:52 09/13/17 15:52 09/13/17 15:52 09/13/17 15:52 09/13/17 15:52 General appearance: Present: A&O X 3, obese, answers questions appropriately - Respiratory Respiratory exam: Present: CTAB. Absent: accessory muscle use, rales, rhonchi, wheezes - Cardiovascular Cardiovascular exam: Present: RRR, +S1, +S2. Absent: diastolic murmur, gallop, rubs, systolic murmur Internal Medicine: Result - Labs CBC & Chem 7: 09/10/17 02:39 09/13/17 05:01 Labs: BMP 09/13/17 05:01 Sodium 139 Potassium 4.1 Chloride 102 Carbon Dioxide 32 H BUN 17 Creatinine 1.01 Glucose 90 Calcium 9.7 - ABG Interpretation ABG results: PT/INR, D-dimer PT 21.0 Seconds (9.4-12.1) H 09/09/17 19:55 - VTE Documentation of Mechanical Device: Graduated compression elastic hosiery Consult Discharge Plan - Plan Referrals: Andres Rudolph Jr, MD [Primary Care Provider] - 09/17/17 10:30 am
[2017-09-13] MEDS ORDERED: Latanoprost 2.5 ML BOTTLE LEFT EYE SCH (21:00)
[2017-09-14] MEDS: *HR* Rivaroxaban 10 MG TABLET PO SCH (08:50)
[2017-09-14] MEDS: Gabapentin 300 MG CAPSULE PO SCH (08:50)
[2017-09-14] MEDS: Fenofibrate 54 MG TABLET PO SCH (08:50)
[2017-09-14] MEDS: Aspirin 81 MG TAB.CHEW PO SCH (08:50)
[2017-09-14] MEDS: diazePAM 5 MG TABLET PO PRN (08:54)
--- NOTE | 2017-09-14 09:29 | Cardiology Progress Note ---
Date of Encounter: 09/14/17 Time of Encounter: 09:27 Assessment and Plan (1) Atrial flutter Current Visit: Yes Status: Chronic Known history of a.fib/flutter s/p ablation. Continued episodes of PAFl, so Sotalol was increased to 180mg q12 hours. Has received 5 increased doses. Unfortunately, went back into A-Flutter ~3PM yesterday. Remains in A-Flutter this AM, rate controlled. Pt asymptomatic currently, was unaware he was in A-Flutter. Daily EKGs reveal stable QTc. Anticoagulated with xarelto. I discussed case with Dr. Dang and he recommends continuing current dose of Sotalol 120mg BID even though pt is back in A-Flutter, since he is rate controlled. Follow-up with Dr. Bon Mendenhall in 2-3 weeks for re-evaluation. Cardiology signing off. Reconsult PRN. Will coordinate follow-up. Qualifiers: Atrial flutter type: typical Qualified Code(s): I48.3 - Typical atrial flutter (2) Chest pain Current Visit: Yes Status: Resolved Reported chest pressure on admission, non exertional symptoms. Denies current chest pain/pressure. ECG with no acute ischemic changes. Troponins negative x3. 2011 [facility] with non-obstructive CAD. Continue ASA, Statin, BB. Stress test 09/11/17 with possible area of artifact, cannot rule out ischemia. Overall low risk findings and no further inpt work-up was recommended. TTE 09/10/17 with LVEF 60-65%, no segmental wall motion abnormalities noted. Qualifiers: Chest pain type: unspecified Qualified Code(s): R07.9 - Chest pain, unspecified Discussion w patient/family: The assessment and plan as outlined above was discussed with the patient and/or family members who expressed understanding and agreement. All questions were answered. Thank you for involving us in the care of your patient. Please call with any questions. I will discuss all the above with Dr. Dang and make changes as necessary. Subjective Principal diagnosis: a.flutter Interval history: Pt has received 5 doses of Sotalol, but went back into A-Flutter ~3PM yesterday. Rate controlled. Pt was unaware he is in A-Flutter, asymptomatic at this time. He denies chest pain, dizziness or palpitations. Objective Vital Signs, Last 4 Hours Temp Pulse Resp BP Pulse Ox 09/14/17 07:32 97.5 F L 61 18 135/94 99 Vital Signs Temp Pulse Resp BP Pulse Ox 09/14/17 07:32 97.5 F L 61 18 135/94 99 09/14/17 03:40 97.8 F 74 16 108/72 92 09/14/17 00:38 98.0 F 85 16 120/86 94 09/13/17 19:34 99.0 F 95 18 153/98 92 09/13/17 15:52 98.4 F 76 19 143/92 93 09/13/17 11:39 98.8 F 57 18 133/83 93 Intake and Output 09/13/17 09/14/17 09/14/17 23:59 07:59 15:59 Intake Total 240 / 240 480 / 480 Output Total 600 / 600 0 / 0 Balance 240 / 240 -600 / -600 480 / 480 Intake: Oral 240 / 240 480 / 480 Output: Urine 600 / 600 0 / 0 Other: Meal Dinner Breakfast Percent of Meal Consumed 100% 100% Weight 123.921 kg Patient Weight 09/14/17 23:59 Weight 123.921 kg General: Conversant, No Apparent Distress HEENT: Atraumatic, Normocephaly, Mucus Membranes Moist Neck: No JVD, Normal carotid pulses Cardiac: Other (regularly irregular) Lungs: Normal Breath Sounds, No Wheeze, Rales, Rhonchi Neuro: Alert and responsive, No focal deficits noted Abdomen: Soft, Non-Tender Skin: No rashes noted on visualized skin Musculoskeletal: No Chest Wall Tenderness Extremities: No Clubbing, No Cyanosis, No Edema, Normal Pulses Results 09/10/17 02:39 09/13/17 05:01 Active Medications Acetaminophen (Tylenol) 650 mg PO Q6HR PRN PRN Reason: Mild Pain/Fever Stop: 03/12/18 00:24 Last Admin: 09/12/17 15:59 Dose: 650 mg Hydrocodone Bitart/Acetaminophen ([place] 5-325 Mg) 1 tab PO Q6H PRN PRN Reason: Moderate to Severe Pain Stop: 03/12/18 00:27 Last Admin: 09/13/17 20:55 Dose: 1 tab Aspirin (Aspirin) 81 mg PO DAILY GEGE Stop: 03/12/18 09:01 Last Admin: 09/14/17 08:50 Dose: 81 mg Atorvastatin Calcium (Lipitor) 10 mg PO HS [facility] Stop: 03/12/18 21:01 Last Admin: 09/13/17 20:56 Dose: 10 mg Diazepam (Valium) 5 mg PO TID PRN PRN Reason: anxiety Stop: 03/11/18 23:23 Last Admin: 09/14/17 08:54 Dose: 5 mg Fenofibrate (Tricor) 162 mg PO DAILY GEGE Stop: 03/12/18 09:01 Last Admin: 09/14/17 08:50 Dose: 162 mg Gabapentin (Neurontin) 600 mg PO TID GEGE Stop: 03/11/18 23:31 Last Admin: 09/14/17 08:50 Dose: 600 mg Hydralazine HCl (Hydralazine) 10 mg IVP Q6HR PRN PRN Reason: Hypertension Stop: 03/11/18 23:33 Latanoprost (Xalatan) 1 drop LEFT EYE HS [facility] PRN Reason: Protocol Stop: 03/15/18 21:01 Last Admin: 09/13/17 20:56 Dose: 1 drop Naloxone HCl (Narcan) 0.4 mg IVP Q2MIN PRN PRN Reason: SEE COMMENTS Stop: 03/11/18 23:15 Nitroglycerin (Nitroglycerin) 0.4 mg SL Q5MIN PRN PRN Reason: Chest Pain Stop: 03/11/18 19:32 Nortriptyline HCl (Pamelor) 25 mg PO BID [facility] Stop: 03/12/18 09:01 Last Admin: 09/14/17 08:50 Dose: 25 mg Omeprazole (Prilosec) 40 mg PO DAILY [facility] Stop: 03/12/18 09:01 Last Admin: 09/14/17 08:50 Dose: 40 mg Oxybutynin Chloride (Ditropan) 5 mg PO BID GEGE PRN Reason: Protocol Stop: 03/12/18 09:01 Last Admin: 09/14/17 08:50 Dose: 5 mg Potassium Phos/Sodium Phos (Neutra-Phos) 1 each PO BID GEGE PRN Reason: Protocol Stop: 03/12/18 21:01 Last Admin: 09/14/17 08:50 Dose: 1 each Rivaroxaban (Xarelto) 20 mg PO DAILY [facility] Stop: 03/11/18 23:31 Last Admin: 09/14/17 08:50 Dose: 20 mg Sotalol HCl (Betapace) 180 mg PO Q12HR [facility] Stop: 03/14/18 11:06 Last Admin: 09/14/17 06:01 Dose: 180 mg Timolol Maleate (Timolol Maleate 0.5%) 1 drop LEFT EYE DAILY [facility] PRN Reason: Protocol Stop: 03/12/18 09:01 Last Admin: 09/14/17 08:51 Dose: 1 drop - Imaging and Cardiology Stress Test: report reviewed Echo: report reviewed - EKG Interpretation EKG results cardiology: personally reviewed, other (12 hr tele AVG HR 82, currently A-Flutter) - VTE Documentation of Mechanical Device: Graduated compression elastic hosiery Consult Discharge Plan - Plan Referrals: Andres Rudolph Jr, MD [Primary Care Provider] - 09/17/17 10:30 am
[2017-09-14 11:12] VITALS: BP 130/84
--- NOTE | 2017-09-14 11:59 | Discharge Summary ---
- NOTES TO OUTPATIENT PROVIDER Notes to Outpatient Provider: A.flutter with variable rate; Sotalol increased to 180mg BID; needs EP Cardiology f/up; Cardizem CD held. Sotalol interacts with Nortryptiline, needs Neurology opinion to taper it off; Date of Encounter: 09/14/17 Time of Encounter: 11:57 - Discharge Diagnosis (1) Atrial flutter with rapid ventricular response Priority: Primary Status: Acute (2) HTN (hypertension) Priority: Secondary Status: Chronic Qualifiers: Hypertension type: essential hypertension Qualified Code(s): I10 - Essential (primary) hypertension (3) Anxiety and depression Priority: Secondary Status: Chronic (4) Chest pain Priority: Primary Status: Resolved Qualifiers: Chest pain type: unspecified Qualified Code(s): R07.9 - Chest pain, unspecified Hospital course: Mr. Yi is a 67 year old male with the above medical problems, who was admitted with fluctuation in heart rate along with chest discomfort/pain. Cardiology was consulted, patient underwent limited echocardiogram which showed preserved ejection fraction, indeterminate diastolic function. Nuclear stress test was done which showed small fixed perfusion defect in the apical inferior wall- ischemia versus artifact. Recommended no further inpatient cardiac testing. Patient was initially noted to have rapid ventricular response, has been on IV Cardizem drip briefly, which was then changed to home dose of oral Cardizem. EP cardiology was consulted, patient's home dose of sotalol was increased to 180 mg twice daily with conversion to sinus rhythm. However, on the day of discharge patient again went back to atrial flutter. He is medically stable for discharge with outpatient follow-up with EP cardiology, oral Cardizem is being held and dose of sotalol is being increased. Of note, patient is on nortriptyline for a very long time which she reports is for depression and ? Migraine headaches. Nortriptyline has a major drug interaction with sotalol with possible QT prolongation. Patient needs to follow with neurology as outpatient to see if nortriptyline can be tapered off. Discharge discussed with: patient, nurse, ada accommodation consultant - Time Spent with Patient Total time spent providing and/or coordinating discharge services: Greater than 30 minutes (45 min) - Discharge Medications Prescriptions: Sotalol [Betapace] 180 mg PO Q12HR #60 tablet Home Medications: Rivaroxaban [Xarelto] 20 mg PO DAILY 03/02/16 [History] diazePAM [Valium] 5 mg PO TID 03/02/16 [History] Aspirin 81 mg PO DAILY 05/28/16 [History] Oxybutynin [Ditropan] 5 mg PO BID 05/28/16 [History] Nortriptyline [Pamelor] 25 mg PO BID 11/13/16 [History] Omeprazole [PriLOSEC] 40 mg PO DAILY 11/13/16 [History] Nystatin/Triamcinolone OINT [Mycolog] 1 appl TP DAILY 01/13/17 [History] Timolol Maleate 0.5% 1 drop LEFT EYE DAILY 01/13/17 [History] Atorvastatin [Lipitor] 10 mg PO HS 09/09/17 [History] Fenofibrate Nanocrystallized [Triglide] 160 mg PO DAILY 09/09/17 [History] Gabapentin [Neurontin] 600 mg PO TID 09/09/17 [History] HYDROcodone/Acet 5/325 mg [[place] 5-325 mg] 1 tab PO Q6H PRN 09/09/17 [History] Latanoprost [Xalatan] 1 drop LEFT EYE DAILY 09/09/17 [History] Sotalol [Betapace] 180 mg PO Q12HR #60 tablet 09/14/17 [Rx] Allergies/Adverse Reactions: 3 Allergy/AdvReac Type Severity Reaction Status Date / Time azithromycin Allergy See Verified 09/09/17 21:03 Comments ciprofloxacin AdvReac Weakness Verified 09/09/17 21:03 clavulanic acid AdvReac Nausea Verified 09/09/17 21:03 [From Augmentin] Sulindac AdvReac Nausea Verified 09/09/17 21:03 Date of admission: 09/12/17 16:41 Primary care physician: Andres Rudolph Jr, MD Discharging clinician: Chelly Juarez Anticipated date of discharge: 09/14/17 - Constitutional Vitals: Temp Pulse Resp BP Pulse Ox 97.3 F L 79 17 130/84 93 09/14/17 11:10 09/14/17 11:10 09/14/17 11:10 09/14/17 11:10 09/14/17 11:10 General appearance: Present: A&O X 3, obese, answers questions appropriately - Cardiovascular Cardiovascular exam: Present: irregular rhythm, +S1, +S2. Absent: diastolic murmur, gallop, rubs, systolic murmur - Patient Status Disposition: Home, Self-Care Condition: Good Functional capacity at discharge: independent ambulation Overall status at discharge: patient is progressing back to baseline - Discharge Instructions Instructions: Diltiazem (By mouth), Sotalol (By mouth), Atrial Flutter (DC), Chest Pain (DC) Follow Up With: Andres Rudolph Jr, MD [Primary Care Provider] - 09/17/17 10:30 am Additional Instructions: F/up with Dr.John Mendenhall Cardiology in 2-3 weeks - Diet and Activity Activity: resume usual activities as tolerated Diet: low fat, low cholesterol, low salt diet - VTE Documentation of Mechanical Device: Graduated compression elastic hosiery
--- NOTE | 2017-09-15 21:15 | Electrocardiograph Report ---
[place] [address] Test Date: 2017-09-12 Pat Name: Tha Yi Department: 112 Room: 2A42 Gender: M Education Adviser: [facility] : 1950 Requested By: Le Barros Order Number: [id number] Reading MD: Casey Coon Measurements Intervals [place] Rate: 58 P: 10 IN: 227 QRS: -20 QRSD: 111 T: 14 QT: 472 QTc: 468 Interpretive Statements SINUS BRADYCARDIA WITH SINUS ARRHYTHMIA WITH FIRST DEGREE AV BLOCK INFERIOR MYOCARDIAL INFARCTION, PROBABLY OLD Electronically Signed On 09-15-2017 21:13:18 EDT by Casey Coon
--- NOTE | 2017-09-16 09:02 | Electrocardiograph Report ---
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
--- NOTE | 2017-09-16 09:43 | Electrocardiograph Report ---
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
== END 2017-09-14 13:16 | disposition home or self-care (01) | DRG 310 ==
LOC: 2ANU 18:46 → EMEROO 18:46 → SUATTDRO 21:44 → 2ANU 22:20
PROVIDERS: ADMIT Internal Medicine; ATTEND Internal Medicine

== ENCOUNTER 2019-04-18 17:53 | Observation (INO) ==
[2019-04-18] MEDS ORDERED: Albuterol 2.5 MG/3 ML NEBULIZER IH ONE (18:27)
[2019-04-18] MEDS ORDERED: Cefdinir 300 MG CAPSULE PO ONE (18:53)
[2019-04-18 19:28] LABS: Hematocrit 41.2 % (37.5-50.1); Mean Corpuscular HGB Conc 31.6 g/dL (31.6-35.5); Mean Corpuscular Hemoglobin 27.6 pg (28.0-33.3); Mean Corpuscular Volume 87.5 fL (83.0-100.0); Mean Platelet Volume 8.6 fL (9.4-12.4); Platelet Count 256 K/mcL (140-400); Red Blood Count 4.71 M/mcL (4.19-5.50); Red Cell Distribution Width 14.7 % (11.5-14.5); White Blood Count 9.3 K/mcL (4.3-11.1)
[2019-04-18 19:42] LABS: BUN/Creatinine Ratio 19 (6-26); Blood Urea Nitrogen 20 mg/dL (8-23); Calcium 9.8 mg/dL (8.6-10.3); Carbon Dioxide 30 mEq/L (23-29); Chloride 95 mEq/L (98-107); Glucose 97 mg/dL (70-105); Osmolality,Calculated 277 (280-300); Potassium 3.7 mEq/L (3.5-5.1); Sodium 132 mEq/L (136-145); eGFR For African Americans > 60 (> 60); eGFR For Non-African Americans > 60 (> 60)
[2019-04-18 19:43] LABS: Troponin I < 0.03 ng/mL (< 0.04)
[2019-04-18] MEDS ORDERED: cefTRIAXone 1,000 MG in Water for inj. (sterile) 10 ML IVP ONE (21:49)
[2019-04-18] MEDS ORDERED: Doxycycline 100 MG in 0.9 % Sodium Chloride Mini Bag 100 ML IVPB ONE (21:50)
[2019-04-18] MEDS ORDERED: Naloxone 0.4 MG/ML INJ IVP PRN (23:25)
[2019-04-18] MEDS ORDERED: 0.9 % Sodium Chloride 1,000 ML IVC SCH (23:30)
[2019-04-18] MEDS ORDERED: Ipratropium/Albuterol Neb 3 ML IH PRN (23:59)
[2019-04-19 05:23] LABS: Adenovirus Not Detected (Not Detect); Bordetella Pertussis Not Detected (Not Detect); Chlamydophila pneumoniae Not Detected (Not Detect); Coronavirus 229E Not Detected (Not Detect); Coronavirus HKU1 Not Detected (Not Detect); Coronavirus NL63 Not Detected (Not Detect); Coronavirus OC43 Not Detected (Not Detect); Human Metapneumovirus Not Detected (Not Detect); Human Rhinovirus/Enterovirus Not Detected (Not Detect); Influenza A Subtype 2009 H1 Not Detected (Not Detect); Influenza B Not Detected (Not Detect); Mycoplasma pneumoniae Not Detected (Not Detect); Parainfluenza Virus 1 Not Detected (Not Detect); Parainfluenza Virus 2 Not Detected (Not Detect); Parainfluenza Virus 3 Not Detected (Not Detect); Parainfluenza Virus 4 Not Detected (Not Detect); Respiratory Syncytial Virus Not Detected (Not Detect)
[2019-04-19 07:07] LABS: Basophils % 0.5 %; Eosinophils # 0.2 K/mcL (0.0-0.6); Eosinophils % 2.8 %; Hematocrit 38.6 % (37.5-50.1); Hemoglobin 12.1 g/dL (12.9-16.9); Immature Granulocytes % 0.2 % (0-4); Lymphocytes # 1.1 K/mcL (0.6-4.6); Mean Corpuscular HGB Conc 31.3 g/dL (31.6-35.5); Mean Corpuscular Hemoglobin 27.5 pg (28.0-33.3); Mean Corpuscular Volume 87.7 fL (83.0-100.0); Monocytes # 0.7 K/mcL (0.0-1.3); Monocytes % 7.9 %; Neutrophils # 6.4 K/mcL (1.6-8.9); Platelet Count 245 K/mcL (140-400); Red Cell Distribution Width 14.6 % (11.5-14.5); Segmented Neutrophils % 75.6 %; White Blood Count 8.5 K/mcL (4.3-11.1)
[2019-04-19 07:12] LABS: INR 1.5; Prothrombin Time 16.9 Seconds (9.4-12.1)
[2019-04-19 07:15] LABS: Activated Partial Thrombo Time 37.8 Seconds (26.0-36.0)
[2019-04-19 07:30] LABS: BUN/Creatinine Ratio 16 (6-26); Blood Urea Nitrogen 14 mg/dL (8-23); Calcium 9.4 mg/dL (8.6-10.3); Carbon Dioxide 29 mEq/L (23-29); Chloride 99 mEq/L (98-107); Glucose 103 mg/dL (70-105); Osmolality,Calculated 283 (280-300); Potassium 3.3 mEq/L (3.5-5.1); Sodium 136 mEq/L (136-145); eGFR For African Americans > 60 (> 60); eGFR For Non-African Americans > 60 (> 60)
[2019-04-19] MEDS: hydroCHLOROthiazide 25 MG TABLET PO SCH (08:30)
[2019-04-19] MEDS: Gabapentin 300 MG CAPSULE PO SCH ×2 (08:31→21:18)
[2019-04-19] MEDS: Fenofibrate 54 MG TABLET PO SCH (08:31)
[2019-04-19] MEDS: *HR* Rivaroxaban 10 MG TABLET PO SCH (08:31)
[2019-04-19] MEDS: Diltiazem CD (24hr) 120 MG CAPSULE PO SCH (08:31)
[2019-04-19] MEDS: cefTRIAXone 2,000 MG in Water for inj. (sterile) 20 ML IVP SCH (08:54)
[2019-04-19] MEDS ORDERED: Latanoprost 2.5 ML BOTTLE LEFT EYE SCH ×2 (09:00→22:45)
[2019-04-19] MEDS ORDERED: cefTRIAXone 1,000 MG in Water for inj. (sterile) 10 ML IVP SCH (09:00)
[2019-04-19] MEDS ORDERED: Doxycycline 100 MG in 0.9 % Sodium Chloride Mini Bag 100 ML IVPB SCH (09:00)
[2019-04-19] MEDS: *HR* HYDROcodone/Acet 5/325 mg TABLET PO PRN ×2 (12:28→21:22)
[2019-04-19] MEDS: Simethicone 80 MG TAB.CHEW PO PRN (12:29)
[2019-04-19] MEDS ORDERED: Famotidine 20 MG TABLET PO SCH (18:00)
[2019-04-19] MEDS ORDERED: Ringers Solution, Lactated 500 ML IVC ONE (18:21)
[2019-04-19] MEDS: Doxycycline 100 MG in 0.9 % Sodium Chloride Mini Bag 100 ML IVPB SCH (21:15)
[2019-04-19] MEDS: diazePAM 5 MG TABLET PO SCH (21:18)
[2019-04-20] MEDS: Simethicone 80 MG TAB.CHEW PO PRN (05:20)
[2019-04-20] MEDS: *HR* HYDROcodone/Acet 5/325 mg TABLET PO PRN (05:20)
[2019-04-20 05:54] LABS: Hematocrit 41.3 % (37.5-50.1); Hemoglobin 12.7 g/dL (12.9-16.9); Mean Corpuscular HGB Conc 30.8 g/dL (31.6-35.5); Mean Corpuscular Hemoglobin 27.5 pg (28.0-33.3); Mean Corpuscular Volume 89.4 fL (83.0-100.0); Mean Platelet Volume 9.1 fL (9.4-12.4); Platelet Count 255 K/mcL (140-400); Red Blood Count 4.62 M/mcL (4.19-5.50); White Blood Count 7.6 K/mcL (4.3-11.1)
[2019-04-20 06:41] LABS: BUN/Creatinine Ratio 15 (6-26); Blood Urea Nitrogen 13 mg/dL (8-23); Calcium 9.6 mg/dL (8.6-10.3); Carbon Dioxide 27 mEq/L (23-29); Chloride 99 mEq/L (98-107); Glucose 92 mg/dL (70-105); Osmolality,Calculated 284 (280-300); Potassium 3.9 mEq/L (3.5-5.1); Sodium 137 mEq/L (136-145); eGFR For African Americans > 60 (> 60); eGFR For Non-African Americans > 60 (> 60)
[2019-04-20] MEDS: cefTRIAXone 2,000 MG in Water for inj. (sterile) 20 ML IVP SCH (08:53)
[2019-04-20] MEDS: Doxycycline 100 MG in 0.9 % Sodium Chloride Mini Bag 100 ML IVPB SCH (08:54)
[2019-04-20] MEDS: Fenofibrate 54 MG TABLET PO SCH (08:55)
[2019-04-20] MEDS: Gabapentin 300 MG CAPSULE PO SCH (08:55)
[2019-04-20] MEDS: Diltiazem CD (24hr) 120 MG CAPSULE PO SCH (08:56)
[2019-04-20] MEDS: diazePAM 5 MG TABLET PO SCH (08:56)
[2019-04-20] MEDS: *HR* Rivaroxaban 10 MG TABLET PO SCH (08:56)
[2019-04-20] MEDS: hydroCHLOROthiazide 25 MG TABLET PO SCH (08:57)
[2019-04-20] MEDS ORDERED: Cyanocobalamin (B-12) 1,000 MCG TABLET PO SCH (09:00)
[2019-04-20] MEDS ORDERED: Cholecalciferol (D-3) 1,000 UNIT (25MCG) TABLET PO SCH (09:00)
[2019-04-20 09:50] VITALS: BP 142/96
[2019-04-20] MEDS ORDERED: Latanoprost 2.5 ML BOTTLE LEFT EYE SCH (21:00)
== END 2019-04-20 17:18 | disposition home or self-care (01) ==
LOC: EMEROOARM 17:53 → 3ANU 17:53
PROVIDERS: ADMIT Student in an Organized Health Care Education/Training Program; ATTEND Student in an Organized Health Care Education/Training Program

== ENCOUNTER 2019-05-14 20:03 | Observation (INO) ==
[2019-05-14] MEDS ORDERED: GI Cocktail 40 ML EACH PO ONE (20:17)
[2019-05-14 21:03] LABS: Basophils # 0.1 K/mcL (0.0-0.2); Basophils % 0.8 %; Eosinophils # 0.4 K/mcL (0.0-0.6); Eosinophils % 5.1 %; Hematocrit 38.4 % (37.5-50.1); Hemoglobin 12.3 g/dL (12.9-16.9); Immature Granulocytes % 0.4 % (0-4); Lymphocytes # 1.2 K/mcL (0.6-4.6); Lymphocytes % 16.5 %; Mean Corpuscular Volume 87.3 fL (83.0-100.0); Mean Platelet Volume 8.8 fL (9.4-12.4); Monocytes # 0.7 K/mcL (0.0-1.3); Monocytes % 9.3 %; Neutrophils # 5.1 K/mcL (1.6-8.9); Platelet Count 237 K/mcL (140-400); Red Cell Distribution Width 14.2 % (11.5-14.5); Segmented Neutrophils % 67.9 %; White Blood Count 7.5 K/mcL (4.3-11.1)
[2019-05-14 21:16] LABS: INR 1.9; Prothrombin Time 21.4 Seconds (9.4-12.1)
[2019-05-14 21:19] LABS: Activated Partial Thrombo Time 49.2 Seconds (26.0-36.0)
[2019-05-14 21:25] LABS: Alanine Aminotransferase 11 Units/L (7-52); Albumin 3.8 g/dL (3.5-5.7); Albumin/Globulin Ratio 1.7 (1.1-2.2); Alkaline Phosphatase 49 Units/L (34-104); Aspartate Amino Transferase 14 Units/L (13-39); BUN/Creatinine Ratio 16 (6-26); Bilirubin,Direct 0.1 mg/dL (0.0-0.2); Bilirubin,Indirect 0.2 mg/dL (0.0-1.0); Bilirubin,Total 0.3 mg/dL (0.3-1.0); Blood Urea Nitrogen 19 mg/dL (8-23); Calcium 9.3 mg/dL (8.6-10.3); Carbon Dioxide 28 mEq/L (23-29); Chloride 98 mEq/L (98-107); Globulin 2.3 g/dL (2.4-3.5); Glucose 119 mg/dL (70-105); Lipase 39 Units/L (11-82); Osmolality,Calculated 283 (280-300); Potassium 3.4 mEq/L (3.5-5.1); Sodium 135 mEq/L (136-145); Total Protein 6.1 g/dL (6.4-8.9); Troponin I < 0.03 ng/mL (< 0.04); eGFR For African Americans > 60 (> 60); eGFR For Non-African Americans > 60 (> 60)
[2019-05-14] MEDS ORDERED: Acetaminophen 325 MG TABLET PO PRN (23:04)
[2019-05-14] MEDS ORDERED: Naloxone 0.4 MG/ML INJ IVP PRN (23:04)
[2019-05-14] MEDS ORDERED: *HR* OxyCODONE/APAP 5/325 TABLET PO PRN (23:27)
[2019-05-15] MEDS: Gabapentin 300 MG CAPSULE PO SCH ×2 (00:44→21:13)
[2019-05-15] MEDS ORDERED: Naloxone 0.4 MG/ML INJ IVP PRN (01:18)
[2019-05-15 02:41] LABS: INR 1.5; Prothrombin Time 17.4 Seconds (9.4-12.1)
[2019-05-15 02:52] LABS: BUN/Creatinine Ratio 15 (6-26); Blood Urea Nitrogen 17 mg/dL (8-23); Carbon Dioxide 30 mEq/L (23-29); Chloride 98 mEq/L (98-107); Glucose 111 mg/dL (70-105); Magnesium 1.9 mg/dL (1.6-2.6); Osmolality,Calculated 284 (280-300); Potassium 3.6 mEq/L (3.5-5.1); Sodium 136 mEq/L (136-145); eGFR For African Americans > 60 (> 60); eGFR For Non-African Americans > 60 (> 60)
[2019-05-15 02:56] LABS: Basophils # 0.1 K/mcL (0.0-0.2); Basophils % 0.7 %; Eosinophils # 0.4 K/mcL (0.0-0.6); Eosinophils % 5.2 %; Hematocrit 43.1 % (37.5-50.1); Hemoglobin 13.8 g/dL (12.9-16.9); Immature Granulocytes % 0.5 % (0-4); Lymphocytes # 1.6 K/mcL (0.6-4.6); Lymphocytes % 19.3 %; Mean Corpuscular Hemoglobin 27.7 pg (28.0-33.3); Mean Corpuscular Volume 86.4 fL (83.0-100.0); Mean Platelet Volume 8.9 fL (9.4-12.4); Monocytes # 0.8 K/mcL (0.0-1.3); Monocytes % 9.6 %; Neutrophils # 5.3 K/mcL (1.6-8.9); Platelet Count 284 K/mcL (140-400); Red Blood Count 4.99 M/mcL (4.19-5.50); Red Cell Distribution Width 14.3 % (11.5-14.5); Segmented Neutrophils % 64.7 %; White Blood Count 8.2 K/mcL (4.3-11.1)
[2019-05-15] MEDS ORDERED: Regadenoson 0.4 MG/5 ML SYRINGE IVP ONE ×2 (10:25→10:37)
[2019-05-15] MEDS: Fenofibrate 54 MG TABLET PO SCH (12:09)
[2019-05-15] MEDS: *HR* Rivaroxaban 10 MG TABLET PO SCH (12:09)
[2019-05-15] MEDS: diazePAM 5 MG TABLET PO SCH ×2 (12:09→21:13)
[2019-05-15] MEDS: Famotidine 20 MG TABLET PO SCH ×2 (12:09→21:13)
[2019-05-15] MEDS ORDERED: Perflutren Lipid Microsphere 1.3 ML in 0.9 % Sodium Chloride 8.7 ML IVP ONE (15:42)
[2019-05-15 16:26] LABS: Basophils % 0.4 %; Eosinophils # 0.2 K/mcL (0.0-0.6); Eosinophils % 1.9 %; Hemoglobin 14.5 g/dL (12.9-16.9); Immature Granulocytes % 0.5 % (0-4); Lymphocytes # 1.3 K/mcL (0.6-4.6); Mean Corpuscular Hemoglobin 27.9 pg (28.0-33.3); Mean Corpuscular Volume 84.6 fL (83.0-100.0); Mean Platelet Volume 8.7 fL (9.4-12.4); Monocytes # 0.9 K/mcL (0.0-1.3); Monocytes % 8.2 %; Platelet Count 283 K/mcL (140-400); Red Cell Distribution Width 14.3 % (11.5-14.5); White Blood Count 10.4 K/mcL (4.3-11.1)
[2019-05-15] MEDS ORDERED: DilTIAZem CD (24hr) 120 MG CAP.ER.24H PO SCH (18:00)
[2019-05-15] MEDS ORDERED: Latanoprost 2.5 ML BOTTLE LEFT EYE SCH (21:00)
[2019-05-16 05:25] LABS: Hemoglobin 13.6 g/dL (12.9-16.9); Mean Corpuscular HGB Conc 31.6 g/dL (31.6-35.5); Mean Corpuscular Hemoglobin 27.3 pg (28.0-33.3); Mean Corpuscular Volume 86.2 fL (83.0-100.0); Platelet Count 234 K/mcL (140-400); Red Blood Count 4.99 M/mcL (4.19-5.50); Red Cell Distribution Width 14.4 % (11.5-14.5)
[2019-05-16 05:39] LABS: BUN/Creatinine Ratio 14 (6-26); Blood Urea Nitrogen 15 mg/dL (8-23); Calcium 9.4 mg/dL (8.6-10.3); Carbon Dioxide 29 mEq/L (23-29); Chloride 98 mEq/L (98-107); Glucose 100 mg/dL (70-105); Osmolality,Calculated 285 (280-300); Potassium 3.8 mEq/L (3.5-5.1); Sodium 137 mEq/L (136-145); eGFR For African Americans > 60 (> 60); eGFR For Non-African Americans > 60 (> 60)
[2019-05-16] MEDS ORDERED: Simethicone 80 MG TAB.CHEW PO PRN (05:46)
[2019-05-16] MEDS: *HR* Rivaroxaban 10 MG TABLET PO SCH (08:18)
[2019-05-16] MEDS: diazePAM 5 MG TABLET PO SCH (08:18)
[2019-05-16] MEDS: Fenofibrate 54 MG TABLET PO SCH (08:18)
[2019-05-16] MEDS: Famotidine 20 MG TABLET PO SCH (08:18)
[2019-05-16] MEDS ORDERED: hydroCHLOROthiazide 25 MG TABLET PO SCH (09:00)
[2019-05-16 12:25] VITALS: BP 115/79
== END 2019-05-16 13:22 | disposition home or self-care (01) ==
LOC: 3BNU 20:03 → EMEROOARM 20:03 → 3BNU 05-15 00:03
PROVIDERS: ADMIT Student in an Organized Health Care Education/Training Program; ATTEND Student in an Organized Health Care Education/Training Program

== ENCOUNTER 2019-06-23 15:26 | Observation (INO) ==
[2019-06-23 17:21] LABS: Basophils # 0.1 K/mcL (0.0-0.2); Basophils % 0.7 %; Eosinophils # 0.2 K/mcL (0.0-0.6); Eosinophils % 3.3 %; Hematocrit 41.6 % (37.5-50.1); Immature Granulocytes % 0.4 % (0-4); Lymphocytes % 13.8 %; Mean Corpuscular HGB Conc 31.3 g/dL (31.6-35.5); Mean Corpuscular Hemoglobin 27.8 pg (28.0-33.3); Mean Corpuscular Volume 89.1 fL (83.0-100.0); Mean Platelet Volume 8.9 fL (9.4-12.4); Monocytes # 0.6 K/mcL (0.0-1.3); Monocytes % 7.9 %; Neutrophils # 5.1 K/mcL (1.6-8.9); Platelet Count 299 K/mcL (140-400); Red Blood Count 4.67 M/mcL (4.19-5.50); Red Cell Distribution Width 13.6 % (11.5-14.5); Segmented Neutrophils % 73.9 %; White Blood Count 6.9 K/mcL (4.3-11.1)
[2019-06-23 17:41] LABS: BUN/Creatinine Ratio 13 (6-26); Blood Urea Nitrogen 12 mg/dL (8-23); Calcium 9.8 mg/dL (8.6-10.3); Carbon Dioxide 27 mEq/L (23-29); Chloride 99 mEq/L (98-107); Glucose 104 mg/dL (70-105); Osmolality,Calculated 278 (280-300); Potassium 4.1 mEq/L (3.5-5.1); Sodium 134 mEq/L (136-145); Troponin I < 0.03 ng/mL (< 0.04); eGFR For African Americans > 60 (> 60); eGFR For Non-African Americans > 60 (> 60)
[2019-06-23] MEDS ORDERED: Naloxone 0.4 MG/ML INJ IVP PRN (20:49)
[2019-06-23] MEDS ORDERED: Ipratropium/Albuterol Neb 3 ML IH PRN (21:28)
[2019-06-24 00:44] LABS: Adenovirus Not Detected (Not Detect); Bordetella Pertussis Not Detected (Not Detect); Chlamydophila pneumoniae Not Detected (Not Detect); Coronavirus 229E Not Detected (Not Detect); Coronavirus HKU1 Not Detected (Not Detect); Coronavirus NL63 Not Detected (Not Detect); Coronavirus OC43 Not Detected (Not Detect); Human Metapneumovirus Not Detected (Not Detect); Human Rhinovirus/Enterovirus Not Detected (Not Detect); Influenza A Subtype 2009 H1 Not Detected (Not Detect); Influenza B Not Detected (Not Detect); Mycoplasma pneumoniae Not Detected (Not Detect); Parainfluenza Virus 1 Not Detected (Not Detect); Parainfluenza Virus 2 Not Detected (Not Detect); Parainfluenza Virus 3 Not Detected (Not Detect); Parainfluenza Virus 4 Not Detected (Not Detect); Respiratory Syncytial Virus Not Detected (Not Detect)
[2019-06-24] MEDS: DilTIAZem CD (24hr) 120 MG CAP.ER.24H PO SCH ×2 (00:55→08:02)
[2019-06-24 04:43] LABS: Hematocrit 40.6 % (37.5-50.1); Hemoglobin 13.1 g/dL (12.9-16.9); Mean Corpuscular HGB Conc 32.3 g/dL (31.6-35.5); Mean Corpuscular Hemoglobin 28.4 pg (28.0-33.3); Mean Corpuscular Volume 87.9 fL (83.0-100.0); Mean Platelet Volume 8.7 fL (9.4-12.4); Platelet Count 273 K/mcL (140-400); Red Blood Count 4.62 M/mcL (4.19-5.50); Red Cell Distribution Width 13.7 % (11.5-14.5); White Blood Count 7.8 K/mcL (4.3-11.1)
[2019-06-24 05:07] LABS: BUN/Creatinine Ratio 13 (6-26); Blood Urea Nitrogen 12 mg/dL (8-23); Calcium 9.6 mg/dL (8.6-10.3); Carbon Dioxide 26 mEq/L (23-29); Chloride 100 mEq/L (98-107); Glucose 104 mg/dL (70-105); Osmolality,Calculated 278 (280-300); Potassium 3.2 mEq/L (3.5-5.1); Sodium 134 mEq/L (136-145); eGFR For African Americans > 60 (> 60); eGFR For Non-African Americans > 60 (> 60)
[2019-06-24] MEDS ORDERED: Potassium Chloride 20 MEQ, Lidocaine 1% 2 ML in 0.9 % Sodium Chloride 250 ML IVPB ONE (07:56)
[2019-06-24] MEDS ORDERED: Preparation H Ointment 30 GM TUBE TP PRN (08:08)
[2019-06-24] MEDS ORDERED: Preparation H Ointment 57 GM TUBE TP PRN (08:30)
[2019-06-24] MEDS ORDERED: Fenofibrate 54 MG TABLET PO SCH (09:00)
[2019-06-24] MEDS ORDERED: hydroCHLOROthiazide 25 MG TABLET PO SCH (09:00)
[2019-06-24] MEDS ORDERED: *HR* Rivaroxaban 10 MG TABLET PO SCH (09:00)
[2019-06-24] MEDS ORDERED: Gabapentin 300 MG CAPSULE PO SCH (09:00)
[2019-06-24] MEDS ORDERED: Isovue-370 500 ML BOTTLE IVP ONE (10:03)
[2019-06-24] MEDS ORDERED: diazePAM 5 MG TABLET PO PRN (10:23)
[2019-06-24] MEDS ORDERED: *HR* HYDROcodone/Acet 5/325 mg TABLET PO PRN (10:32)
[2019-06-24 15:15] VITALS: BP 114/78
[2019-06-24] MEDS ORDERED: Famotidine 20 MG TABLET PO SCH (18:00)
[2019-06-25] MEDS ORDERED: Cholecalciferol (D-3) 1,000 UNIT (25MCG) TABLET PO SCH (09:00)
[2019-06-25] MEDS ORDERED: Latanoprost 2.5 ML BOTTLE LEFT EYE SCH (09:00)
== END 2019-06-24 17:17 | disposition home or self-care (01) ==
LOC: EMEROOARM 15:26 → 3BNU 15:26
PROVIDERS: ADMIT Internal Medicine; ATTEND Internal Medicine

== ENCOUNTER 2019-07-23 17:03 | Inpatient (IN) ==
[2019-07-23 18:47] LABS: Basophils # 0.1 K/mcL (0.0-0.2); Basophils % 0.7 %; Eosinophils # 0.2 K/mcL (0.0-0.6); Eosinophils % 3.2 %; Hematocrit 38.3 % (37.5-50.1); Hemoglobin 12.1 g/dL (12.9-16.9); Immature Granulocytes % 0.5 % (0-4); Lymphocytes # 1.1 K/mcL (0.6-4.6); Mean Corpuscular HGB Conc 31.6 g/dL (31.6-35.5); Mean Corpuscular Hemoglobin 28.1 pg (28.0-33.3); Mean Corpuscular Volume 88.9 fL (83.0-100.0); Mean Platelet Volume 8.7 fL (9.4-12.4); Monocytes # 0.7 K/mcL (0.0-1.3); Monocytes % 9.5 %; Neutrophils # 5.3 K/mcL (1.6-8.9); Nucleated Red Blood Cells 0.3 /100 WBC (0); Platelet Count 273 K/mcL (140-400); Red Blood Count 4.31 M/mcL (4.19-5.50); Red Cell Distribution Width 13.5 % (11.5-14.5); Segmented Neutrophils % 71.1 %; White Blood Count 7.5 K/mcL (4.3-11.1)
[2019-07-23 18:59] LABS: BUN/Creatinine Ratio 15 (6-26); Blood Urea Nitrogen 15 mg/dL (8-23); Calcium 9.5 mg/dL (8.6-10.3); Carbon Dioxide 29 mEq/L (23-29); Chloride 97 mEq/L (98-107); Glucose 140 mg/dL (70-105); Osmolality,Calculated 279 (280-300); Potassium 3.6 mEq/L (3.5-5.1); Sodium 133 mEq/L (136-145); Troponin I < 0.03 ng/mL (< 0.04); eGFR For African Americans > 60 (> 60); eGFR For Non-African Americans > 60 (> 60)
[2019-07-23] MEDS ORDERED: Furosemide 40 MG/4 ML VIAL IVP ONE (20:26)
[2019-07-23] MEDS ORDERED: Naloxone 0.4 MG/ML INJ IVP PRN (22:20)
[2019-07-23] MEDS ORDERED: Ondansetron ODT 4 MG TAB.RAPDIS SL PRN (22:20)
[2019-07-23] MEDS ORDERED: Acetaminophen 325 MG TABLET PO PRN (22:22)
[2019-07-23] MEDS ORDERED: *HR* HYDROcodone/Acet 5/325 mg TABLET PO PRN (22:24)
[2019-07-23] MEDS: hydroCHLOROthiazide 25 MG TABLET PO SCH (23:57)
[2019-07-24] MEDS ORDERED: Isovue-370 500 ML BOTTLE IVP ONE (02:33)
[2019-07-24 03:23] LABS: Hematocrit 42.8 % (37.5-50.1); Hemoglobin 13.5 g/dL (12.9-16.9); Mean Corpuscular HGB Conc 31.5 g/dL (31.6-35.5); Mean Corpuscular Hemoglobin 27.6 pg (28.0-33.3); Mean Corpuscular Volume 87.5 fL (83.0-100.0); Mean Platelet Volume 8.6 fL (9.4-12.4); Platelet Count 299 K/mcL (140-400); Red Blood Count 4.89 M/mcL (4.19-5.50); Red Cell Distribution Width 13.6 % (11.5-14.5); White Blood Count 7.7 K/mcL (4.3-11.1)
[2019-07-24 03:57] LABS: BUN/Creatinine Ratio 12 (6-26); Blood Urea Nitrogen 11 mg/dL (8-23); Calcium 9.9 mg/dL (8.6-10.3); Carbon Dioxide 28 mEq/L (23-29); Chloride 98 mEq/L (98-107); Glucose 122 mg/dL (70-105); Osmolality,Calculated 283 (280-300); Potassium 3.1 mEq/L (3.5-5.1); Sodium 136 mEq/L (136-145); eGFR For African Americans > 60 (> 60); eGFR For Non-African Americans > 60 (> 60)
[2019-07-24] MEDS ORDERED: Latanoprost 2.5 ML BOTTLE LEFT EYE SCH (09:00)
[2019-07-24] MEDS: Cyanocobalamin (B-12) 1,000 MCG TABLET PO SCH (09:32)
[2019-07-24] MEDS: *HR* Rivaroxaban 10 MG TABLET PO SCH (09:32)
[2019-07-24] MEDS: diazePAM 5 MG TABLET PO SCH ×2 (09:32→20:39)
[2019-07-24] MEDS: Gabapentin 300 MG CAPSULE PO SCH ×2 (09:32→20:21)
[2019-07-24] MEDS: Cholecalciferol (D-3) 1,000 UNIT (25MCG) TABLET PO SCH (09:32)
[2019-07-24] MEDS ORDERED: TIMOLOL MALEATE 0.5% LEFT EYE SCH (13:45)
[2019-07-24] MEDS: Furosemide 40 MG/4 ML VIAL IVP SCH ×2 (15:12→20:17)
[2019-07-24] MEDS: Artificial Tears SOLN 15 ML BOTTLE BOTH EYES SCH ×3 (15:13→20:38)
[2019-07-24] MEDS: hydroCHLOROthiazide 25 MG TABLET PO SCH (20:19)
[2019-07-24] MEDS: DilTIAZem CD (24hr) 120 MG CAP.ER.24H PO SCH (20:19)
[2019-07-24] MEDS: Latanoprost 2.5 ML BOTTLE LEFT EYE SCH (20:38)
[2019-07-25 02:01] LABS: Basophils # 0.1 K/mcL (0.0-0.2); Basophils % 0.9 %; Eosinophils # 0.2 K/mcL (0.0-0.6); Hematocrit 42.8 % (37.5-50.1); Hemoglobin 13.4 g/dL (12.9-16.9); Immature Granulocytes % 0.6 % (0-4); Lymphocytes # 1.9 K/mcL (0.6-4.6); Mean Corpuscular HGB Conc 31.3 g/dL (31.6-35.5); Mean Corpuscular Hemoglobin 27.4 pg (28.0-33.3); Mean Corpuscular Volume 87.5 fL (83.0-100.0); Mean Platelet Volume 8.8 fL (9.4-12.4); Monocytes # 0.9 K/mcL (0.0-1.3); Neutrophils # 5.8 K/mcL (1.6-8.9); Platelet Count 315 K/mcL (140-400); Red Blood Count 4.89 M/mcL (4.19-5.50); Red Cell Distribution Width 13.9 % (11.5-14.5); Segmented Neutrophils % 65.5 %; White Blood Count 8.8 K/mcL (4.3-11.1)
[2019-07-25 02:16] LABS: BUN/Creatinine Ratio 15 (6-26); Blood Urea Nitrogen 16 mg/dL (8-23); Calcium 10.3 mg/dL (8.6-10.3); Carbon Dioxide 27 mEq/L (23-29); Chloride 99 mEq/L (98-107); Glucose 114 mg/dL (70-105); Magnesium 1.8 mg/dL (1.6-2.6); Osmolality,Calculated 284 (280-300); Potassium 3.5 mEq/L (3.5-5.1); Sodium 136 mEq/L (136-145); eGFR For African Americans > 60 (> 60); eGFR For Non-African Americans > 60 (> 60)
[2019-07-25] MEDS ORDERED: methylPREDNISolone 125 MG/2 ML VIAL IVP ONE (07:39)
[2019-07-25] MEDS: Ipratropium/Albuterol Neb 3 ML IH SCH ×4 (09:18→19:47)
[2019-07-25] MEDS: diazePAM 5 MG TABLET PO SCH ×2 (09:27→21:20)
[2019-07-25] MEDS: Gabapentin 300 MG CAPSULE PO SCH ×2 (09:27→21:19)
[2019-07-25] MEDS: Cholecalciferol (D-3) 1,000 UNIT (25MCG) TABLET PO SCH (09:27)
[2019-07-25] MEDS: Cyanocobalamin (B-12) 1,000 MCG TABLET PO SCH (09:27)
[2019-07-25] MEDS: Furosemide 40 MG/4 ML VIAL IVP SCH ×2 (09:29→21:19)
[2019-07-25] MEDS: *HR* Rivaroxaban 10 MG TABLET PO SCH (09:29)
[2019-07-25] MEDS: Artificial Tears SOLN 15 ML BOTTLE BOTH EYES SCH ×4 (09:31→21:20)
[2019-07-25] MEDS: DilTIAZem CD (24hr) 120 MG CAP.ER.24H PO SCH (18:19)
[2019-07-25] MEDS: hydroCHLOROthiazide 25 MG TABLET PO SCH (21:19)
[2019-07-25] MEDS: Latanoprost 2.5 ML BOTTLE LEFT EYE SCH (21:21)
[2019-07-26] MEDS: Ipratropium/Albuterol Neb 3 ML IH SCH ×4 (00:35→11:41)
[2019-07-26 01:23] LABS: BUN/Creatinine Ratio 23 (6-26); Blood Urea Nitrogen 28 mg/dL (8-23); Calcium 10.6 mg/dL (8.6-10.3); Carbon Dioxide 24 mEq/L (23-29); Chloride 96 mEq/L (98-107); Glucose 150 mg/dL (70-105); Magnesium 1.5 mg/dL (1.6-2.6); Osmolality,Calculated 282 (280-300); Potassium 3.5 mEq/L (3.5-5.1); Sodium 132 mEq/L (136-145); eGFR For African Americans > 60 (> 60); eGFR For Non-African Americans 58 (> 60)
[2019-07-26 07:35] VITALS: BP 119/77
[2019-07-26] MEDS ORDERED: Magnesium Oxide 400 MG TABLET PO SCH (09:00)
[2019-07-26] MEDS ORDERED: polyethylene glycoL 3350 17 GM POWD.PACK PO SCH (09:00)
[2019-07-26] MEDS ORDERED: predniSONE 20 MG TABLET PO SCH (09:00)
[2019-07-26] MEDS: Furosemide 40 MG/4 ML VIAL IVP SCH (09:30)
[2019-07-26] MEDS: Cholecalciferol (D-3) 1,000 UNIT (25MCG) TABLET PO SCH (09:34)
[2019-07-26] MEDS: *HR* Rivaroxaban 10 MG TABLET PO SCH (09:35)
[2019-07-26] MEDS: Gabapentin 300 MG CAPSULE PO SCH (09:36)
[2019-07-26] MEDS: Cyanocobalamin (B-12) 1,000 MCG TABLET PO SCH (09:36)
[2019-07-26] MEDS: diazePAM 5 MG TABLET PO SCH (09:36)
[2019-07-26] MEDS: Artificial Tears SOLN 15 ML BOTTLE BOTH EYES SCH (09:38)
== END 2019-07-26 12:25 | disposition home or self-care (01) | DRG 291 ==
LOC: EMEROOARM 17:03 → 3BNU 17:03 → SUATTDRO 21:10 → 2NENU 21:30 → 2ANU 07-24 19:53
PROVIDERS: ADMIT Family Medicine; ATTEND Family Medicine

== ENCOUNTER 2019-08-17 13:04 | Inpatient (IN) ==
[2019-08-17 13:55] LABS: Basophils % 0.5 %; Eosinophils # 0.2 K/mcL (0.0-0.6); Eosinophils % 2.3 %; Hematocrit 39.8 % (37.5-50.1); Hemoglobin 12.1 g/dL (12.9-16.9); Immature Granulocytes % 0.4 % (0-4); Lymphocytes # 0.9 K/mcL (0.6-4.6); Lymphocytes % 10.3 %; Mean Corpuscular HGB Conc 30.4 g/dL (31.6-35.5); Mean Corpuscular Hemoglobin 27.6 pg (28.0-33.3); Mean Corpuscular Volume 90.7 fL (83.0-100.0); Mean Platelet Volume 8.7 fL (9.4-12.4); Monocytes # 0.7 K/mcL (0.0-1.3); Monocytes % 8.2 %; Neutrophils # 6.5 K/mcL (1.6-8.9); Platelet Count 267 K/mcL (140-400); Red Blood Count 4.39 M/mcL (4.19-5.50); Red Cell Distribution Width 14.1 % (11.5-14.5); Segmented Neutrophils % 78.3 %; White Blood Count 8.3 K/mcL (4.3-11.1)
[2019-08-17] MEDS ORDERED: Piperacillin/Tazobactam 3.375 GM in 0.9 % Sodium Chloride Mini Bag 100 ML IVPB ONE (14:02)
[2019-08-17] MEDS ORDERED: Azithromycin 500 MG in 0.9 % Sodium Chloride 250 ML IVPB ONE (14:02)
[2019-08-17 14:03] LABS: INR 2.2; Prothrombin Time 24.8 Seconds (9.4-12.1)
[2019-08-17] MEDS ORDERED: Cefepime HCl 2,000 MG in Water for inj. (sterile) 20 ML IVP ONE (14:03)
[2019-08-17] MEDS ORDERED: Vancomycin 1,750 MG/517.5 ML IV.SOLN IVPB ONE (14:08)
[2019-08-17 14:18] LABS: Alanine Aminotransferase 12 Units/L (7-52); Albumin 4.2 g/dL (3.5-5.7); Alkaline Phosphatase 53 Units/L (34-104); Aspartate Amino Transferase 14 Units/L (13-39); BUN/Creatinine Ratio 15 (6-26); Bilirubin,Total 0.4 mg/dL (0.3-1.0); Blood Urea Nitrogen 16 mg/dL (8-23); Calcium 9.6 mg/dL (8.6-10.3); Carbon Dioxide 34 mEq/L (23-29); Chloride 98 mEq/L (98-107); Globulin 2.1 g/dL (2.4-3.5); Glucose 127 mg/dL (70-105); Magnesium 1.9 mg/dL (1.6-2.6); Osmolality,Calculated 285 (280-300); Potassium 3.6 mEq/L (3.5-5.1); Sodium 136 mEq/L (136-145); Total Protein 6.3 g/dL (6.4-8.9); Troponin I < 0.03 ng/mL (< 0.04); eGFR For African Americans > 60 (> 60); eGFR For Non-African Americans > 60 (> 60)
[2019-08-17] MEDS ORDERED: Vancomycin 1,750 MG in 0.9 % Sodium Chloride 250 ML IVPB SCH (15:00)
[2019-08-17] MEDS ORDERED: Aminoglycoside Consult 1 EACH MC ONE (16:10)
[2019-08-17] MEDS ORDERED: Ondansetron 4 MG/2 ML VIAL IVP PRN (16:16)
[2019-08-17] MEDS ORDERED: Acetaminophen 325 MG TABLET PO PRN (16:16)
[2019-08-17] MEDS ORDERED: Naloxone 0.4 MG/ML INJ IVP PRN (16:16)
[2019-08-17] MEDS ORDERED: *HR* HYDROcodone/Acet 5/325 mg TABLET PO PRN (16:25)
[2019-08-17] MEDS ORDERED: Albuterol 2.5 MG/3 ML NEBULIZER IH PRN (16:25)
[2019-08-17] MEDS: Doxycycline 100 MG in 0.9 % Sodium Chloride Mini Bag 100 ML IVPB SCH (17:31)
[2019-08-17] MEDS: DilTIAZem CD (24hr) 120 MG CAP.ER.24H PO SCH (18:30)
[2019-08-17] MEDS: Budesonide/Formoterol 160/4.5 1 PUFF INH IH SCH (20:15)
[2019-08-17] MEDS: Furosemide 20 MG/2 ML VIAL IVP SCH (20:37)
[2019-08-17] MEDS: Gabapentin 300 MG CAPSULE PO SCH (20:41)
[2019-08-17] MEDS: Famotidine 20 MG TABLET PO SCH (20:41)
[2019-08-17] MEDS: diazePAM 5 MG TABLET PO SCH (20:41)
[2019-08-18 02:40] LABS: Basophils % 0.7 %; Eosinophils # 0.2 K/mcL (0.0-0.6); Eosinophils % 2.8 %; Hematocrit 36.2 % (37.5-50.1); Hemoglobin 11.3 g/dL (12.9-16.9); Immature Granulocytes % 0.2 % (0-4); Lymphocytes # 0.7 K/mcL (0.6-4.6); Lymphocytes % 12.7 %; Mean Corpuscular HGB Conc 31.2 g/dL (31.6-35.5); Mean Corpuscular Hemoglobin 28.1 pg (28.0-33.3); Mean Platelet Volume 8.9 fL (9.4-12.4); Monocytes # 0.5 K/mcL (0.0-1.3); Monocytes % 8.6 %; Neutrophils # 4.3 K/mcL (1.6-8.9); Platelet Count 241 K/mcL (140-400); Red Blood Count 4.02 M/mcL (4.19-5.50); White Blood Count 5.7 K/mcL (4.3-11.1)
[2019-08-18 03:03] LABS: BUN/Creatinine Ratio 15 (6-26); Blood Urea Nitrogen 13 mg/dL (8-23); Carbon Dioxide 30 mEq/L (23-29); Chloride 100 mEq/L (98-107); Glucose 98 mg/dL (70-105); Magnesium 1.9 mg/dL (1.6-2.6); Osmolality,Calculated 282 (280-300); Phosphorous 2.5 mg/dL (2.7-4.5); Potassium 3.3 mEq/L (3.5-5.1); Sodium 136 mEq/L (136-145); eGFR For African Americans > 60 (> 60); eGFR For Non-African Americans > 60 (> 60)
[2019-08-18] MEDS: Doxycycline 100 MG in 0.9 % Sodium Chloride Mini Bag 100 ML IVPB SCH ×2 (05:26→17:27)
[2019-08-18] MEDS ORDERED: Latanoprost 2.5 ML BOTTLE LEFT EYE SCH ×2 (09:00→21:00)
[2019-08-18] MEDS: Budesonide/Formoterol 160/4.5 1 PUFF INH IH SCH ×2 (09:23→20:32)
[2019-08-18] MEDS: Cyanocobalamin (B-12) 1,000 MCG TABLET PO SCH (10:31)
[2019-08-18] MEDS: Furosemide 20 MG/2 ML VIAL IVP SCH ×2 (10:31→21:50)
[2019-08-18] MEDS: diazePAM 5 MG TABLET PO SCH ×2 (10:32→21:43)
[2019-08-18] MEDS: Cholecalciferol (D-3) 1,000 UNIT (25MCG) TABLET PO SCH (10:32)
[2019-08-18] MEDS ORDERED: *HR* Rivaroxaban 10 MG TABLET PO SCH (17:00)
[2019-08-18] MEDS: DilTIAZem CD (24hr) 120 MG CAP.ER.24H PO SCH (17:27)
[2019-08-18] MEDS: Famotidine 20 MG TABLET PO SCH (21:43)
[2019-08-18] MEDS: Gabapentin 300 MG CAPSULE PO SCH (21:43)
[2019-08-19] MEDS: Doxycycline 100 MG in 0.9 % Sodium Chloride Mini Bag 100 ML IVPB SCH (05:05)
[2019-08-19 07:27] VITALS: BP 110/73
[2019-08-19] MEDS: diazePAM 5 MG TABLET PO SCH (08:59)
[2019-08-19] MEDS: Cholecalciferol (D-3) 1,000 UNIT (25MCG) TABLET PO SCH (08:59)
[2019-08-19] MEDS: Furosemide 20 MG/2 ML VIAL IVP SCH (08:59)
[2019-08-19] MEDS: Cyanocobalamin (B-12) 1,000 MCG TABLET PO SCH (08:59)
[2019-08-19] MEDS: Budesonide/Formoterol 160/4.5 1 PUFF INH IH SCH (09:28)
[2019-08-19] MEDS ORDERED: Doxycycline 100 MG CAPSULE PO SCH (21:00)
== END 2019-08-19 12:09 | disposition home or self-care (01) | DRG 194 ==
LOC: EMEROOARM 13:04 → 2ANU 13:04 → SUATTDRO 16:09 → 2ANU 16:53 → SUATTDRO 08-18 12:44
PROVIDERS: ADMIT Internal Medicine; ATTEND Family Medicine

== ENCOUNTER 2019-11-02 11:42 | Inpatient (IN) ==
[2019-11-02 12:35] LABS: Basophils # 0.1 K/mcL (0.0-0.2); Basophils % 0.8 %; Eosinophils % 0.5 %; Hematocrit 38.5 % (37.5-50.1); Hemoglobin 11.6 g/dL (12.9-16.9); Immature Granulocytes % 0.3 % (0-4); Lymphocytes # 0.5 K/mcL (0.6-4.6); Mean Corpuscular HGB Conc 30.1 g/dL (31.6-35.5); Mean Corpuscular Hemoglobin 26.6 pg (28.0-33.3); Mean Corpuscular Volume 88.3 fL (83.0-100.0); Mean Platelet Volume 8.8 fL (9.4-12.4); Monocytes # 0.7 K/mcL (0.0-1.3); Monocytes % 9.6 %; Neutrophils # 6.3 K/mcL (1.6-8.9); Platelet Count 299 K/mcL (140-400); Red Blood Count 4.36 M/mcL (4.19-5.50); Red Cell Distribution Width 13.9 % (11.5-14.5); Segmented Neutrophils % 81.8 %; White Blood Count 7.7 K/mcL (4.3-11.1)
[2019-11-02 12:40] LABS: INR 1.2; Prothrombin Time 13.3 Seconds (9.4-12.1)
[2019-11-02 12:43] LABS: Activated Partial Thrombo Time 29.6 Seconds (26.0-36.0)
[2019-11-02] MEDS ORDERED: Doxycycline 100 MG in 0.9 % Sodium Chloride Mini Bag 100 ML IVPB ONE (12:51)
[2019-11-02] MEDS ORDERED: cefTRIAXone 1,000 MG in Water for inj. (sterile) 10 ML IVP ONE (12:51)
[2019-11-02 13:13] LABS: Alanine Aminotransferase 16 Units/L (7-52); Albumin/Globulin Ratio 1.7 (1.1-2.2); Alkaline Phosphatase 48 Units/L (34-104); Aspartate Amino Transferase 22 Units/L (13-39); BUN/Creatinine Ratio 14 (6-26); Bilirubin,Direct 0.1 mg/dL (0.0-0.2); Bilirubin,Indirect 0.5 mg/dL (0.0-1.0); Bilirubin,Total 0.6 mg/dL (0.3-1.0); Blood Urea Nitrogen 13 mg/dL (8-23); C-Reactive Protein 8 mg/L (Less than 10); Calcium 9.4 mg/dL (8.6-10.3); Carbon Dioxide 30 mEq/L (23-29); Chloride 92 mEq/L (98-107); Globulin 2.3 g/dL (2.4-3.5); Glucose 121 mg/dL (70-105); Lactate Dehydrogenase 138 Units/L (140-271); Magnesium 1.7 mg/dL (1.6-2.6); Osmolality,Calculated 271 (280-300); Phosphorous 2.3 mg/dL (2.7-4.5); Potassium 3.8 mEq/L (3.5-5.1); Sodium 130 mEq/L (136-145); Total Protein 6.3 g/dL (6.4-8.9); Troponin I < 0.03 ng/mL (< 0.04); eGFR For African Americans > 60 (> 60); eGFR For Non-African Americans > 60 (> 60)
[2019-11-02 13:14] LABS: Ferritin 9 ng/mL (20-250)
[2019-11-02] MEDS ORDERED: Ipratropium/Albuterol Neb 3 ML IH ONE (13:21)
[2019-11-02 13:41] LABS: Adenovirus Not Detected (Not Detect); Bordetella Pertussis Not Detected (Not Detect); Chlamydophila pneumoniae Not Detected (Not Detect); Coronavirus 229E Not Detected (Not Detect); Coronavirus HKU1 Not Detected (Not Detect); Coronavirus NL63 Not Detected (Not Detect); Coronavirus OC43 Not Detected (Not Detect); Human Metapneumovirus Not Detected (Not Detect); Human Rhinovirus/Enterovirus Not Detected (Not Detect); Influenza A Subtype 2009 H1 Not Detected (Not Detect); Influenza B Not Detected (Not Detect); Mycoplasma pneumoniae Not Detected (Not Detect); Parainfluenza Virus 1 Not Detected (Not Detect); Parainfluenza Virus 2 Not Detected (Not Detect); Parainfluenza Virus 3 Not Detected (Not Detect); Parainfluenza Virus 4 Not Detected (Not Detect); Respiratory Syncytial Virus Not Detected (Not Detect)
[2019-11-02] MEDS ORDERED: Naloxone 0.4 MG/ML INJ IVP PRN (14:30)
[2019-11-02] MEDS ORDERED: Ondansetron 4 MG/2 ML VIAL IVP PRN (14:30)
[2019-11-02] MEDS ORDERED: Ipratropium/Albuterol Neb 3 ML IH PRN (14:37)
[2019-11-02] MEDS ORDERED: Iron Sucrose Complex 250 MG in 0.9 % Sodium Chloride 250 ML IVPB SCH (14:45)
[2019-11-02] MEDS: Acetaminophen 325 MG TABLET PO PRN (15:45)
[2019-11-02 17:36] LABS: VBG HCO3 32 mEq/L (21-27); VBG PCO2 56 mmHg (41-51); VBG PH 7.37 pH Units (7.32-7.42); VBG PO2 121 mmHg (25-50)
[2019-11-02] MEDS ORDERED: diazePAM 5 MG TABLET PO PRN (18:24)
[2019-11-02] MEDS ORDERED: diazePAM 10 MG TABLET PO PRN (18:24)
[2019-11-02] MEDS ORDERED: *HR* HYDROcodone/Acet 5/325 mg TABLET PO PRN (18:24)
[2019-11-02] MEDS: Latanoprost 2.5 ML BOTTLE LEFT EYE SCH (20:28)
[2019-11-02] MEDS: Gabapentin 300 MG CAPSULE PO SCH (20:28)
[2019-11-03 04:25] LABS: Basophils % 0.7 %; Eosinophils # 0.3 K/mcL (0.0-0.6); Eosinophils % 4.6 %; Hematocrit 36.2 % (37.5-50.1); Hemoglobin 10.9 g/dL (12.9-16.9); Immature Granulocytes % 0.3 % (0-4); Lymphocytes # 0.9 K/mcL (0.6-4.6); Lymphocytes % 15.4 %; Mean Corpuscular HGB Conc 30.1 g/dL (31.6-35.5); Mean Corpuscular Hemoglobin 26.6 pg (28.0-33.3); Mean Corpuscular Volume 88.3 fL (83.0-100.0); Mean Platelet Volume 8.5 fL (9.4-12.4); Monocytes # 0.7 K/mcL (0.0-1.3); Monocytes % 12.2 %; Platelet Count 261 K/mcL (140-400); Red Cell Distribution Width 13.8 % (11.5-14.5); Segmented Neutrophils % 66.8 %; White Blood Count 5.9 K/mcL (4.3-11.1)
[2019-11-03 04:40] LABS: BUN/Creatinine Ratio 12 (6-26); Blood Urea Nitrogen 11 mg/dL (8-23); Carbon Dioxide 34 mEq/L (23-29); Chloride 91 mEq/L (98-107); Glucose 92 mg/dL (70-105); Magnesium 1.7 mg/dL (1.6-2.6); Osmolality,Calculated 271 (280-300); Potassium 3.2 mEq/L (3.5-5.1); Sodium 131 mEq/L (136-145); eGFR For African Americans > 60 (> 60); eGFR For Non-African Americans > 60 (> 60)
[2019-11-03] MEDS ORDERED: Doxycycline 100 MG in 0.9 % Sodium Chloride Mini Bag 100 ML IVPB SCH (06:00)
[2019-11-03] MEDS ORDERED: Doxycycline 100 MG CAPSULE PO SCH (06:00)
[2019-11-03] MEDS: Acetaminophen 325 MG TABLET PO PRN (06:22)
[2019-11-03] MEDS: hydroCHLOROthiazide 25 MG TABLET PO SCH (08:51)
[2019-11-03] MEDS ORDERED: Cholecalciferol (D-3) 1,000 UNIT (25MCG) TABLET PO SCH (09:00)
[2019-11-03] MEDS ORDERED: *HR* Rivaroxaban 10 MG TABLET PO SCH (09:00)
[2019-11-03] MEDS ORDERED: Fenofibrate 54 MG TABLET PO SCH (09:00)
[2019-11-03] MEDS ORDERED: Cyanocobalamin (B-12) 1,000 MCG TABLET PO SCH (09:00)
[2019-11-03] MEDS ORDERED: DilTIAZem CD (24hr) 120 MG CAP.ER.24H PO SCH (18:00)
[2019-11-03] MEDS: Gabapentin 300 MG CAPSULE PO SCH (22:17)
[2019-11-03] MEDS: Latanoprost 2.5 ML BOTTLE LEFT EYE SCH (22:22)
[2019-11-04 06:40] LABS: BUN/Creatinine Ratio 13 (6-26); Blood Urea Nitrogen 12 mg/dL (8-23); Calcium 9.4 mg/dL (8.6-10.3); Carbon Dioxide 32 mEq/L (23-29); Chloride 94 mEq/L (98-107); Glucose 93 mg/dL (70-105); Magnesium 1.7 mg/dL (1.6-2.6); Osmolality,Calculated 271 (280-300); Potassium 3.6 mEq/L (3.5-5.1); Sodium 131 mEq/L (136-145); eGFR For African Americans > 60 (> 60); eGFR For Non-African Americans > 60 (> 60)
[2019-11-04 06:53] LABS: Basophils % 0.6 %; Eosinophils # 0.2 K/mcL (0.0-0.6); Eosinophils % 3.3 %; Hematocrit 36.6 % (37.5-50.1); Hemoglobin 11.1 g/dL (12.9-16.9); Immature Granulocytes % 0.6 % (0-4); Lymphocytes # 1.2 K/mcL (0.6-4.6); Lymphocytes % 17.5 %; Mean Corpuscular HGB Conc 30.3 g/dL (31.6-35.5); Mean Corpuscular Hemoglobin 25.6 pg (28.0-33.3); Mean Corpuscular Volume 84.3 fL (83.0-100.0); Mean Platelet Volume 8.6 fL (9.4-12.4); Monocytes % 14.6 %; Neutrophils # 4.2 K/mcL (1.6-8.9); Platelet Count 280 K/mcL (140-400); Red Blood Count 4.34 M/mcL (4.19-5.50); Red Cell Distribution Width 13.9 % (11.5-14.5); Segmented Neutrophils % 63.4 %; White Blood Count 6.6 K/mcL (4.3-11.1)
[2019-11-04] MEDS: hydroCHLOROthiazide 25 MG TABLET PO SCH (08:37)
[2019-11-04] MEDS ORDERED: *HR* Midazolam HCl 2 MG/2 ML VIAL ONE (08:49)
[2019-11-04] MEDS ORDERED: *HR* FentaNYL (PF) 100 MCG/2 ML VIAL ONE (08:49)
[2019-11-04] MEDS ORDERED: *HR* Propofol 200 MG/20 ML VIAL IVP ONE (08:49)
[2019-11-04] MEDS ORDERED: *HR* Succinylcholine 200 MG/10 ML VIAL IVP ONE (08:51)
[2019-11-04] MEDS ORDERED: *HR* Rocuronium Bromide 50 MG/5 ML VIAL ONE (08:51)
[2019-11-04] MEDS ORDERED: Lidocaine -MPF 2% 2 ML VIAL ONE ×2 (08:51→15:45)
[2019-11-04] MEDS ORDERED: Ondansetron 4 MG/2 ML VIAL ONE (08:51)
[2019-11-04] MEDS ORDERED: Dexamethasone 4 MG/ML VIAL ONE (08:51)
[2019-11-04] MEDS ORDERED: Artificial Tears SOLN 15 ML BOTTLE RIGHT EYE SCH (09:00)
[2019-11-04] MEDS ORDERED: *HR* OxyCODONE Immed Rel 5 MG TABLET PO PRN (09:43)
[2019-11-04] MEDS ORDERED: *HR* Vasopressin 20 UNIT/ML VIAL ONE (09:57)
[2019-11-04] MEDS ORDERED: Clindamycin 900 MG/50 ML 900 MG/50 ML IV.SOLN IVPB ONE (10:35)
[2019-11-04] MEDS: *HR* HYDROmorphone PF 0.5 MG/0.5 ML SYRINGE IVP PRN ×2 (11:48→12:00)
[2019-11-04] MEDS ORDERED: Cefepime HCl 1,000 MG in Water for inj. (sterile) 10 ML IVP SCH (12:40)
[2019-11-04] MEDS ORDERED: predniSONE 20 MG TABLET PO SCH (12:45)
[2019-11-04] MEDS ORDERED: diazePAM 5 MG TABLET PO PRN (13:11)
[2019-11-04] MEDS ORDERED: diazePAM 10 MG TABLET PO PRN (13:11)
[2019-11-04] MEDS ORDERED: Acetaminophen 325 MG TABLET PO PRN (13:11)
[2019-11-04] MEDS ORDERED: Ipratropium/Albuterol Neb 3 ML IH PRN (13:11)
[2019-11-04] MEDS ORDERED: Ondansetron 4 MG/2 ML VIAL IVP PRN (13:11)
[2019-11-04] MEDS ORDERED: Naloxone 0.4 MG/ML INJ IVP PRN (13:11)
[2019-11-04] MEDS: *HR* HYDROcodone/Acet 5/325 mg TABLET PO PRN ×2 (14:40→20:49)
[2019-11-04] MEDS: Cefepime HCl 1,000 MG in Water for inj. (sterile) 10 ML IVP SCH ×2 (16:25→23:30)
[2019-11-04] MEDS: DilTIAZem CD (24hr) 120 MG CAP.ER.24H PO SCH (16:26)
[2019-11-04] MEDS: Artificial Tears SOLN 15 ML BOTTLE RIGHT EYE SCH ×2 (16:26→20:46)
[2019-11-04] MEDS: Gabapentin 300 MG CAPSULE PO SCH (20:42)
[2019-11-04] MEDS: Latanoprost 2.5 ML BOTTLE LEFT EYE SCH (20:48)
[2019-11-05] MEDS: *HR* HYDROcodone/Acet 5/325 mg TABLET PO PRN ×3 (03:09→21:31)
[2019-11-05 03:24] LABS: Basophils % 0.1 %; Hematocrit 39.4 % (37.5-50.1); Hemoglobin 12.1 g/dL (12.9-16.9); Immature Granulocytes % 0.4 % (0-4); Lymphocytes # 0.5 K/mcL (0.6-4.6); Lymphocytes % 5.2 %; Mean Corpuscular HGB Conc 30.7 g/dL (31.6-35.5); Mean Corpuscular Hemoglobin 26.6 pg (28.0-33.3); Mean Corpuscular Volume 86.6 fL (83.0-100.0); Mean Platelet Volume 8.6 fL (9.4-12.4); Monocytes # 0.9 K/mcL (0.0-1.3); Monocytes % 9.4 %; Neutrophils # 8.3 K/mcL (1.6-8.9); Platelet Count 325 K/mcL (140-400); Red Blood Count 4.55 M/mcL (4.19-5.50); Red Cell Distribution Width 13.9 % (11.5-14.5); Segmented Neutrophils % 84.9 %; White Blood Count 9.8 K/mcL (4.3-11.1)
[2019-11-05 03:47] LABS: BUN/Creatinine Ratio 17 (6-26); Blood Urea Nitrogen 12 mg/dL (8-23); Calcium 9.7 mg/dL (8.6-10.3); Carbon Dioxide 30 mEq/L (23-29); Chloride 94 mEq/L (98-107); Glucose 146 mg/dL (70-105); Magnesium 1.8 mg/dL (1.6-2.6); Osmolality,Calculated 274 (280-300); Potassium 3.8 mEq/L (3.5-5.1); Sodium 131 mEq/L (136-145); eGFR For African Americans > 60 (> 60); eGFR For Non-African Americans > 60 (> 60)
[2019-11-05] MEDS: Cefepime HCl 1,000 MG in Water for inj. (sterile) 10 ML IVP SCH ×2 (07:36→16:43)
[2019-11-05] MEDS: Fenofibrate 54 MG TABLET PO SCH (07:38)
[2019-11-05] MEDS: Cholecalciferol (D-3) 1,000 UNIT (25MCG) TABLET PO SCH (07:39)
[2019-11-05] MEDS: hydroCHLOROthiazide 25 MG TABLET PO SCH (07:39)
[2019-11-05] MEDS: Cyanocobalamin (B-12) 1,000 MCG TABLET PO SCH (07:39)
[2019-11-05] MEDS: Artificial Tears SOLN 15 ML BOTTLE RIGHT EYE SCH ×4 (07:42→21:35)
[2019-11-05 08:39] LABS: Serine Protease-3 Antibody 0 AU/mL (0-19)
[2019-11-05] MEDS: DilTIAZem CD (24hr) 120 MG CAP.ER.24H PO SCH (16:42)
[2019-11-05] MEDS ORDERED: *HR* Rivaroxaban 10 MG TABLET PO SCH (17:00)
[2019-11-05] MEDS: Gabapentin 300 MG CAPSULE PO SCH (21:32)
[2019-11-05] MEDS: Latanoprost 2.5 ML BOTTLE LEFT EYE SCH (21:35)
[2019-11-06] MEDS: Cefepime HCl 1,000 MG in Water for inj. (sterile) 10 ML IVP SCH ×2 (00:50→08:19)
[2019-11-06] MEDS: *HR* HYDROcodone/Acet 5/325 mg TABLET PO PRN (08:17)
[2019-11-06] MEDS: hydroCHLOROthiazide 25 MG TABLET PO SCH (08:20)
[2019-11-06] MEDS: Fenofibrate 54 MG TABLET PO SCH (08:20)
[2019-11-06] MEDS: Cyanocobalamin (B-12) 1,000 MCG TABLET PO SCH (08:20)
[2019-11-06] MEDS: Cholecalciferol (D-3) 1,000 UNIT (25MCG) TABLET PO SCH (08:21)
[2019-11-06] MEDS: Artificial Tears SOLN 15 ML BOTTLE RIGHT EYE SCH ×2 (08:21→13:06)
[2019-11-06 15:50] VITALS: BP 106/75
== END 2019-11-06 18:20 | disposition home or self-care (01) | DRG 163 ==
LOC: 3ANU 11:42 → EMEROOARM 11:42 → SUATTDRO 14:11 → 3ANU 15:12 → SUATTDRO 11-03 14:13 → 2NNU 11-04 12:53
PROVIDERS: ADMIT Pharmacist; ATTEND Internal Medicine

== ENCOUNTER 2019-12-23 17:07 | Observation (INO) ==
[2019-12-23] MEDS ORDERED: Aspirin 325 MG TABLET PO ONE (17:28)
[2019-12-23 17:51] LABS: Basophils # 0.1 K/mcL (0.0-0.2); Basophils % 0.9 %; Eosinophils # 0.3 K/mcL (0.0-0.6); Eosinophils % 3.3 %; Hematocrit 42.1 % (37.5-50.1); Hemoglobin 13.2 g/dL (12.9-16.9); Immature Granulocytes % 0.4 % (0-4); Lymphocytes # 1.2 K/mcL (0.6-4.6); Lymphocytes % 14.5 %; Mean Corpuscular HGB Conc 31.4 g/dL (31.6-35.5); Mean Corpuscular Hemoglobin 26.4 pg (28.0-33.3); Mean Corpuscular Volume 84.2 fL (83.0-100.0); Mean Platelet Volume 8.5 fL (9.4-12.4); Monocytes # 0.8 K/mcL (0.0-1.3); Monocytes % 9.7 %; Neutrophils # 5.8 K/mcL (1.6-8.9); Platelet Count 316 K/mcL (140-400); Red Cell Distribution Width 14.6 % (11.5-14.5); Segmented Neutrophils % 71.2 %; White Blood Count 8.1 K/mcL (4.3-11.1)
[2019-12-23 18:01] LABS: INR 2.6; Prothrombin Time 29.8 Seconds (9.4-12.1)
[2019-12-23 18:12] LABS: Alanine Aminotransferase 12 Units/L (7-52); Albumin 4.2 g/dL (3.5-5.7); Albumin/Globulin Ratio 1.7 (1.1-2.2); Alkaline Phosphatase 47 Units/L (34-104); Aspartate Amino Transferase 14 Units/L (13-39); BUN/Creatinine Ratio 11 (6-26); Bilirubin,Direct 0.1 mg/dL (0.0-0.2); Bilirubin,Indirect 0.3 mg/dL (0.0-1.0); Bilirubin,Total 0.4 mg/dL (0.3-1.0); Blood Urea Nitrogen 12 mg/dL (8-23); Calcium 9.7 mg/dL (8.6-10.3); Carbon Dioxide 30 mEq/L (23-29); Chloride 93 mEq/L (98-107); Globulin 2.5 g/dL (2.4-3.5); Glucose 113 mg/dL (70-105); Lipase 24 Units/L (11-82); Osmolality,Calculated 271 (280-300); Potassium 3.7 mEq/L (3.5-5.1); Sodium 130 mEq/L (136-145); Total Protein 6.7 g/dL (6.4-8.9); Troponin I < 0.03 ng/mL (< 0.04); eGFR For African Americans > 60 (> 60); eGFR For Non-African Americans > 60 (> 60)
[2019-12-23 19:11] LABS: Bilirubin,Urine Negative (Negative); Blood,Urine Negative (Negative); Clarity,Urine Clear (Clear); Color,Urine Yellow (Yellow); Glucose,Urine (UA) Normal (Normal); Ketones,Urine Negative (Negative); Leukocyte Esterase,Urine Negative (Negative); Nitrite,Urine Negative (Negative); Protein,Urine Trace mg/dL (Neg-Trace); Urobilinogen,Urine Normal (Normal)
[2019-12-24] MEDS ORDERED: Perflutren Lipid Microsphere 1.3 ML in 0.9 % Sodium Chloride 8.7 ML IVP PRN (01:52)
[2019-12-24] MEDS ORDERED: *HR* HYDROcodone/Acet 5/325 mg TABLET PO PRN (01:52)
[2019-12-24] MEDS ORDERED: Benzonatate 100 MG CAPSULE PO PRN (01:52)
[2019-12-24] MEDS ORDERED: Naloxone 0.4 MG/ML INJ IVP PRN (02:26)
[2019-12-24] MEDS ORDERED: Acetaminophen 325 MG TABLET PO PRN (02:26)
[2019-12-24] MEDS ORDERED: Morphine Sulfate 2 MG/ML SYRINGE IVP ONE (02:32)
[2019-12-24 03:40] LABS: Hematocrit 38.7 % (37.5-50.1); Hemoglobin 12.1 g/dL (12.9-16.9); Mean Corpuscular HGB Conc 31.3 g/dL (31.6-35.5); Mean Corpuscular Hemoglobin 26.8 pg (28.0-33.3); Mean Corpuscular Volume 85.8 fL (83.0-100.0); Mean Platelet Volume 8.5 fL (9.4-12.4); Platelet Count 237 K/mcL (140-400); Red Blood Count 4.51 M/mcL (4.19-5.50); Red Cell Distribution Width 14.5 % (11.5-14.5); White Blood Count 5.8 K/mcL (4.3-11.1)
[2019-12-24 03:52] LABS: BUN/Creatinine Ratio 11 (6-26); Blood Urea Nitrogen 10 mg/dL (8-23); Calcium 9.1 mg/dL (8.6-10.3); Carbon Dioxide 28 mEq/L (23-29); Chloride 96 mEq/L (98-107); Chol/HDL Ratio 2.6 (0-4.9); Cholesterol 135 mg/dL (< 200); Glucose 122 mg/dL (70-105); HDL Cholesterol 51 mg/dL (40-59); LDL Cholesterol,Calculated 67 mg/dL (< 100); Osmolality,Calculated 272 (280-300); Phosphorous 2.3 mg/dL (2.7-4.5); Potassium 3.1 mEq/L (3.5-5.1); Sodium 131 mEq/L (136-145); Triglycerides 84 mg/dL (< 150); eGFR For African Americans > 60 (> 60); eGFR For Non-African Americans > 60 (> 60)
[2019-12-24] MEDS ORDERED: Fenofibrate 54 MG TABLET PO SCH (09:00)
[2019-12-24] MEDS ORDERED: hydroCHLOROthiazide 25 MG TABLET PO SCH (09:00)
[2019-12-24] MEDS ORDERED: Cholecalciferol (D-3) 1,000 UNIT (25MCG) TABLET PO SCH (09:00)
[2019-12-24] MEDS ORDERED: Gabapentin 300 MG CAPSULE PO SCH (09:00)
[2019-12-24] MEDS ORDERED: diazePAM 5 MG TABLET PO SCH (09:00)
[2019-12-24] MEDS ORDERED: Potassium Chloride Elixir 20 MEQ/15 ML UDC PO ONE (10:41)
[2019-12-24 15:49] VITALS: BP 125/84
[2019-12-24] MEDS ORDERED: GI Cocktail 40 ML EACH PO ONE (15:57)
[2019-12-24] MEDS ORDERED: DilTIAZem CD (24hr) 120 MG CAP.ER.24H PO SCH (18:00)
[2019-12-24] MEDS ORDERED: Latanoprost 2.5 ML BOTTLE LEFT EYE SCH (21:00)
[2019-12-24] MEDS ORDERED: Famotidine 20 MG TABLET PO SCH (21:00)
== END 2019-12-24 18:30 | disposition home or self-care (01) ==
LOC: EMEROOARM 17:07 → 3BNU 17:07
PROVIDERS: ADMIT Student in an Organized Health Care Education/Training Program; ATTEND Student in an Organized Health Care Education/Training Program

== ENCOUNTER 2020-03-29 09:25 | Observation (INO) ==
[2020-03-29] MEDS ORDERED: Ipratropium/Albuterol Neb 3 ML IH ONE (09:43)
[2020-03-29 10:07] LABS: Basophils # 0.1 K/mcL (0.0-0.2); Basophils % 0.7 %; Eosinophils % 0.5 %; Hematocrit 42.9 % (37.5-50.1); Hemoglobin 13.5 g/dL (12.9-16.9); Immature Granulocytes % 0.2 % (0-4); Lymphocytes # 0.4 K/mcL (0.6-4.6); Lymphocytes % 5.3 %; Mean Corpuscular HGB Conc 31.5 g/dL (31.6-35.5); Mean Corpuscular Hemoglobin 26.6 pg (28.0-33.3); Mean Corpuscular Volume 84.4 fL (83.0-100.0); Mean Platelet Volume 8.7 fL (9.4-12.4); Monocytes # 0.6 K/mcL (0.0-1.3); Monocytes % 7.5 %; Neutrophils # 7.1 K/mcL (1.6-8.9); Platelet Count 266 K/mcL (140-400); Red Blood Count 5.08 M/mcL (4.19-5.50); Red Cell Distribution Width 13.3 % (11.5-14.5); Segmented Neutrophils % 85.8 %; White Blood Count 8.2 K/mcL (4.3-11.1)
[2020-03-29 10:16] LABS: INR 1.5; Prothrombin Time 16.8 Seconds (9.4-12.1)
[2020-03-29 10:18] LABS: Activated Partial Thrombo Time 34.5 Seconds (26.0-36.0)
[2020-03-29 10:29] LABS: BUN/Creatinine Ratio 12 (6-26); Blood Urea Nitrogen 12 mg/dL (8-23); Carbon Dioxide 30 mEq/L (23-29); Chloride 93 mEq/L (98-107); Potassium 3.6 mEq/L (3.5-5.1); Sodium 131 mEq/L (136-145)
[2020-03-29 10:30] LABS: Alanine Aminotransferase 11 Units/L (7-52); Albumin 3.9 g/dL (3.5-5.7); Albumin/Globulin Ratio 1.6 (1.1-2.2); Alkaline Phosphatase 48 Units/L (34-104); Aspartate Amino Transferase 14 Units/L (13-39); Bilirubin,Direct 0.2 mg/dL (0.0-0.2); Bilirubin,Indirect 0.5 mg/dL (0.0-1.0); Bilirubin,Total 0.7 mg/dL (0.3-1.0); C-Reactive Protein 31 mg/L (Less than 10); Calcium 9.5 mg/dL (8.6-10.3); Globulin 2.5 g/dL (2.4-3.5); Glucose 116 mg/dL (70-105); Lactate Dehydrogenase 121 Units/L (140-271); Magnesium 1.7 mg/dL (1.6-2.6); Osmolality,Calculated 273 (280-300); Phosphorous 1.8 mg/dL (2.7-4.5); Total Protein 6.4 g/dL (6.4-8.9); Troponin I < 0.03 ng/mL (< 0.04); eGFR For African Americans > 60 (> 60); eGFR For Non-African Americans > 60 (> 60)
[2020-03-29 10:47] LABS: Ferritin 13 ng/mL (20-250)
[2020-03-29] MEDS ORDERED: Doxycycline 100 MG in 0.9 % Sodium Chloride Mini Bag 100 ML IVPB ONE (10:56)
[2020-03-29] MEDS ORDERED: Naloxone 0.4 MG/ML INJ IVP PRN ×2 (11:55→11:57)
[2020-03-29] MEDS ORDERED: MOM Conc 10 ML UD.LIQ PO PRN (11:57)
[2020-03-29] MEDS ORDERED: Mag Hydrox/Al Hydrox/Simeth 30 ML UDC PO PRN (11:57)
[2020-03-29] MEDS ORDERED: *HR* HYDROcodone/Acet 5/325 mg TABLET PO PRN (11:57)
[2020-03-29] MEDS ORDERED: Ondansetron 4 MG/2 ML VIAL IVP PRN (11:57)
[2020-03-29] MEDS ORDERED: Acetaminophen 325 MG TABLET PO PRN (11:57)
[2020-03-29] MEDS ORDERED: Ipratropium/Albuterol Neb 3 ML IH PRN (12:09)
[2020-03-29] MEDS ORDERED: cefTRIAXone 2,000 MG in 0.9 % Sodium Chloride Mini Bag 100 ML IVPB SCH (13:00)
[2020-03-29] MEDS ORDERED: Azithromycin 500 MG in 0.9 % Sodium Chloride 250 ML IVPB SCH (13:00)
[2020-03-29] MEDS: methylPREDNISolone 125 MG/2 ML VIAL IVP SCH ×2 (14:18→23:35)
[2020-03-29] MEDS: Aspirin Enteric Coated 81 MG Tablet PO SCH (14:18)
[2020-03-29] MEDS: levoFLOXacin 750 MG/150 ML 750 MG/150 ML BAG IVPB SCH (14:25)
[2020-03-29] MEDS: Ipratropium/Albuterol Neb 3 ML IH SCH ×3 (16:39→23:47)
[2020-03-30 01:16] LABS: Basophils % 0.1 %; Hematocrit 39.5 % (37.5-50.1); Hemoglobin 12.6 g/dL (12.9-16.9); Immature Granulocytes % 0.4 % (0-4); Lymphocytes # 0.5 K/mcL (0.6-4.6); Lymphocytes % 7.4 %; Mean Corpuscular HGB Conc 31.9 g/dL (31.6-35.5); Mean Corpuscular Hemoglobin 27.3 pg (28.0-33.3); Mean Corpuscular Volume 85.5 fL (83.0-100.0); Mean Platelet Volume 9.2 fL (9.4-12.4); Monocytes # 0.4 K/mcL (0.0-1.3); Monocytes % 5.4 %; Platelet Count 262 K/mcL (140-400); Red Blood Count 4.62 M/mcL (4.19-5.50); Red Cell Distribution Width 13.4 % (11.5-14.5); Segmented Neutrophils % 86.7 %
[2020-03-30 01:46] LABS: BUN/Creatinine Ratio 19 (6-26); Blood Urea Nitrogen 17 mg/dL (8-23); Calcium 9.4 mg/dL (8.6-10.3); Carbon Dioxide 27 mEq/L (23-29); Chloride 94 mEq/L (98-107); Glucose 158 mg/dL (70-105); Magnesium 1.7 mg/dL (1.6-2.6); Osmolality,Calculated 273 (280-300); Phosphorous < 1.0 mg/dL (2.7-4.5); Potassium 3.5 mEq/L (3.5-5.1); Sodium 129 mEq/L (136-145); eGFR For African Americans > 60 (> 60); eGFR For Non-African Americans > 60 (> 60)
[2020-03-30] MEDS: Ipratropium/Albuterol Neb 3 ML IH SCH ×2 (04:11→08:11)
[2020-03-30] MEDS: methylPREDNISolone 125 MG/2 ML VIAL IVP SCH ×3 (07:43→23:31)
[2020-03-30] MEDS: levoFLOXacin 750 MG/150 ML 750 MG/150 ML BAG IVPB SCH (07:44)
[2020-03-30] MEDS: Aspirin Enteric Coated 81 MG Tablet PO SCH (07:44)
[2020-03-30] MEDS ORDERED: Benzonatate 100 MG CAPSULE PO PRN (08:06)
[2020-03-30] MEDS ORDERED: *HR* Rivaroxaban 10 MG TABLET PO SCH ×2 (09:00→17:00)
[2020-03-30] MEDS: hydroCHLOROthiazide 25 MG TABLET PO SCH (10:04)
[2020-03-30] MEDS: Lactobacillus 1 EACH CAP.SPRINK PO SCH (10:04)
[2020-03-30] MEDS: Fenofibrate 54 MG TABLET PO SCH (10:05)
[2020-03-30] MEDS: diazePAM 5 MG TABLET PO SCH (10:05)
[2020-03-30] MEDS: Cyanocobalamin (B-12) 1,000 MCG TABLET PO SCH (10:05)
[2020-03-30] MEDS: Cholecalciferol (D-3) 1,000 UNIT (25MCG) TABLET PO SCH (10:06)
[2020-03-30] MEDS: Artificial Tears SOLN 15 ML BOTTLE RIGHT EYE SCH ×2 (10:08→19:42)
[2020-03-30] MEDS ORDERED: DilTIAZem CD (24hr) 120 MG CAP.ER.24H PO SCH (18:00)
[2020-03-30] MEDS ORDERED: Latanoprost 2.5 ML BOTTLE LEFT EYE SCH (21:00)
[2020-03-30] MEDS ORDERED: Gabapentin 300 MG CAPSULE PO SCH (21:00)
[2020-03-30] MEDS ORDERED: Famotidine 20 MG TABLET PO SCH (21:00)
[2020-03-30] MEDS ORDERED: diazePAM 5 MG TABLET PO SCH (21:00)
[2020-03-31 01:56] LABS: Basophils % 0.1 %; Eosinophils % 0.1 %; Hematocrit 37.3 % (37.5-50.1); Hemoglobin 11.9 g/dL (12.9-16.9); Immature Granulocytes % 0.7 % (0-4); Lymphocytes # 0.5 K/mcL (0.6-4.6); Lymphocytes % 5.1 %; Mean Corpuscular HGB Conc 31.9 g/dL (31.6-35.5); Mean Corpuscular Hemoglobin 27.3 pg (28.0-33.3); Mean Corpuscular Volume 85.6 fL (83.0-100.0); Mean Platelet Volume 9.1 fL (9.4-12.4); Monocytes # 0.6 K/mcL (0.0-1.3); Monocytes % 5.9 %; Neutrophils # 9.3 K/mcL (1.6-8.9); Platelet Count 279 K/mcL (140-400); Red Blood Count 4.36 M/mcL (4.19-5.50); Red Cell Distribution Width 13.5 % (11.5-14.5); Segmented Neutrophils % 88.1 %
[2020-03-31 02:08] LABS: White Blood Count 10.5 K/mcL (4.3-11.1)
[2020-03-31 02:15] LABS: BUN/Creatinine Ratio 24 (6-26); Blood Urea Nitrogen 21 mg/dL (8-23); Calcium 9.3 mg/dL (8.6-10.3); Carbon Dioxide 29 mEq/L (23-29); Chloride 90 mEq/L (98-107); Glucose 161 mg/dL (70-105); Magnesium 1.7 mg/dL (1.6-2.6); Osmolality,Calculated 272 (280-300); Potassium 3.5 mEq/L (3.5-5.1); Sodium 128 mEq/L (136-145); eGFR For African Americans > 60 (> 60); eGFR For Non-African Americans > 60 (> 60)
[2020-03-31] MEDS ORDERED: Doxycycline 100 MG in 0.9 % Sodium Chloride Mini Bag 100 ML IVPB SCH (06:00)
[2020-03-31 06:50] VITALS: BP 118/74
[2020-03-31] MEDS: methylPREDNISolone 125 MG/2 ML VIAL IVP SCH (08:10)
[2020-03-31] MEDS: Aspirin Enteric Coated 81 MG Tablet PO SCH (08:10)
[2020-03-31] MEDS: Lactobacillus 1 EACH CAP.SPRINK PO SCH (08:10)
[2020-03-31] MEDS: Cholecalciferol (D-3) 1,000 UNIT (25MCG) TABLET PO SCH (08:10)
[2020-03-31] MEDS: Fenofibrate 54 MG TABLET PO SCH (08:11)
[2020-03-31] MEDS: hydroCHLOROthiazide 25 MG TABLET PO SCH (08:11)
[2020-03-31] MEDS: Cyanocobalamin (B-12) 1,000 MCG TABLET PO SCH (08:11)
[2020-03-31] MEDS: diazePAM 5 MG TABLET PO SCH (08:12)
[2020-03-31] MEDS: Artificial Tears SOLN 15 ML BOTTLE RIGHT EYE SCH (08:18)
[2020-03-31] MEDS ORDERED: cefTRIAXone 1,000 MG in Water for inj. (sterile) 10 ML IVP SCH (09:00)
== END 2020-03-31 17:28 | disposition home or self-care (01) ==
LOC: 2ANU 09:25 → EMEROOARM 09:25 → SUATTDRO 11:55 → 2ANU 13:43
PROVIDERS: ADMIT Internal Medicine; ATTEND Family Medicine

== ENCOUNTER 2020-05-14 22:50 | Observation (INO) ==
[2020-05-14 23:51] LABS: Basophils % 0.4 %; Hematocrit 37.5 % (37.5-50.1); Hemoglobin 12.1 g/dL (12.9-16.9); Immature Granulocytes % 0.6 % (0-4); Lymphocytes # 0.9 K/mcL (0.6-4.6); Lymphocytes % 12.3 %; Mean Corpuscular HGB Conc 32.3 g/dL (31.6-35.5); Mean Corpuscular Hemoglobin 26.9 pg (28.0-33.3); Mean Corpuscular Volume 83.5 fL (83.0-100.0); Mean Platelet Volume 8.7 fL (9.4-12.4); Monocytes # 0.6 K/mcL (0.0-1.3); Monocytes % 8.9 %; Neutrophils # 5.4 K/mcL (1.6-8.9); Platelet Count 275 K/mcL (140-400); Red Blood Count 4.49 M/mcL (4.19-5.50); Red Cell Distribution Width 13.8 % (11.5-14.5); Segmented Neutrophils % 77.8 %
[2020-05-14 23:54] LABS: BUN/Creatinine Ratio 21 (6-26); Blood Urea Nitrogen 20 mg/dL (8-23); Calcium 9.8 mg/dL (8.6-10.3); Carbon Dioxide 29 mEq/L (23-29); Chloride 92 mEq/L (98-107); Glucose 186 mg/dL (70-105); Osmolality,Calculated 271 (280-300); Potassium 3.3 mEq/L (3.5-5.1); Sodium 127 mEq/L (136-145); eGFR For African Americans > 60 (> 60); eGFR For Non-African Americans > 60 (> 60)
[2020-05-14 23:55] LABS: Troponin I < 0.03 ng/mL (< 0.04)
[2020-05-15] MEDS ORDERED: Aspirin 81 MG TAB.CHEW PO ONE (01:28)
[2020-05-15] MEDS ORDERED: Acetaminophen 325 MG TABLET PO PRN (02:34)
[2020-05-15] MEDS ORDERED: Naloxone 0.4 MG/ML INJ IVP PRN (02:34)
[2020-05-15] MEDS ORDERED: Ondansetron 4 MG/2 ML VIAL IVP PRN (02:34)
[2020-05-15 05:09] LABS: Hematocrit 42.9 % (37.5-50.1); Hemoglobin 13.6 g/dL (12.9-16.9); Mean Corpuscular HGB Conc 31.7 g/dL (31.6-35.5); Mean Corpuscular Volume 85.3 fL (83.0-100.0); Platelet Count 313 K/mcL (140-400); Red Blood Count 5.03 M/mcL (4.19-5.50); Red Cell Distribution Width 13.8 % (11.5-14.5); White Blood Count 9.5 K/mcL (4.3-11.1)
[2020-05-15 05:27] LABS: BUN/Creatinine Ratio 20 (6-26); Blood Urea Nitrogen 18 mg/dL (8-23); Calcium 10.3 mg/dL (8.6-10.3); Carbon Dioxide 30 mEq/L (23-29); Chloride 92 mEq/L (98-107); Glucose 90 mg/dL (70-105); Osmolality,Calculated 271 (280-300); Potassium 3.4 mEq/L (3.5-5.1); Sodium 130 mEq/L (136-145); Troponin I < 0.03 ng/mL (< 0.04); eGFR For African Americans > 60 (> 60); eGFR For Non-African Americans > 60 (> 60)
[2020-05-15] MEDS ORDERED: Regadenoson 0.4 MG/5 ML SYRINGE IVP ONE (07:36)
[2020-05-15] MEDS ORDERED: Potassium Chloride 20 MEQ, Lidocaine 1% 2 ML in 0.9 % Sodium Chloride 250 ML IVPB ONE (08:01)
[2020-05-15] MEDS ORDERED: *HR* Rivaroxaban 10 MG TABLET PO SCH (11:15)
[2020-05-15 14:33] LABS: BUN/Creatinine Ratio 16 (6-26); Blood Urea Nitrogen 16 mg/dL (8-23); Carbon Dioxide 25 mEq/L (23-29); Chloride 99 mEq/L (98-107); Glucose 130 mg/dL (70-105); Osmolality,Calculated 281 (280-300); Sodium 134 mEq/L (136-145); eGFR For African Americans > 60 (> 60); eGFR For Non-African Americans > 60 (> 60)
[2020-05-15 16:34] VITALS: BP 126/83
[2020-05-15] MEDS ORDERED: DilTIAZem CD (24hr) 120 MG CAP.ER.24H PO SCH (18:00)
== END 2020-05-15 17:53 | disposition home or self-care (01) ==
LOC: EMEROOARM 22:50 → 3BNU 22:50
PROVIDERS: ADMIT Internal Medicine; ATTEND Internal Medicine

== ENCOUNTER 2020-06-14 23:12 | Observation (INO) ==
[2020-06-14] MEDS ORDERED: Isovue-370 500 ML BOTTLE IVP ONE (23:53)
[2020-06-15] MEDS ORDERED: Isovue-370 500 ML BOTTLE IVP ONE
[2020-06-15 00:11] LABS: Basophils # 0.1 K/mcL (0.0-0.2); Eosinophils # 0.3 K/mcL (0.0-0.6); Eosinophils % 3.9 %; Hematocrit 39.3 % (37.5-50.1); Hemoglobin 12.4 g/dL (12.9-16.9); Immature Granulocytes % 0.5 % (0-4); Lymphocytes # 1.1 K/mcL (0.6-4.6); Lymphocytes % 14.7 %; Mean Corpuscular HGB Conc 31.6 g/dL (31.6-35.5); Mean Corpuscular Hemoglobin 27.4 pg (28.0-33.3); Mean Corpuscular Volume 86.8 fL (83.0-100.0); Mean Platelet Volume 8.8 fL (9.4-12.4); Monocytes # 0.7 K/mcL (0.0-1.3); Monocytes % 9.4 %; Neutrophils # 5.5 K/mcL (1.6-8.9); Platelet Count 298 K/mcL (140-400); Red Blood Count 4.53 M/mcL (4.19-5.50); Red Cell Distribution Width 13.5 % (11.5-14.5); Segmented Neutrophils % 70.5 %; White Blood Count 7.8 K/mcL (4.3-11.1)
[2020-06-15] MEDS ORDERED: Aspirin 81 MG TAB.CHEW PO ONE (00:17)
[2020-06-15 00:32] LABS: BUN/Creatinine Ratio 14 (6-26); Blood Urea Nitrogen 13 mg/dL (8-23); Calcium 9.2 mg/dL (8.6-10.3); Carbon Dioxide 31 mEq/L (23-29); Chloride 93 mEq/L (98-107); Glucose 128 mg/dL (70-105); Osmolality,Calculated 272 (280-300); Potassium 3.4 mEq/L (3.5-5.1); Sodium 130 mEq/L (136-145); eGFR For African Americans > 60 (> 60); eGFR For Non-African Americans > 60 (> 60)
[2020-06-15 00:33] LABS: Troponin I < 0.03 ng/mL (< 0.04)
[2020-06-15] MEDS ORDERED: Ondansetron ODT 4 MG TAB.RAPDIS SL PRN (03:00)
[2020-06-15] MEDS ORDERED: Acetaminophen 325 MG TABLET PO PRN (03:00)
[2020-06-15] MEDS ORDERED: Naloxone 0.4 MG/ML INJ IVP PRN (03:00)
[2020-06-15] MEDS ORDERED: Perflutren Lipid Microsphere 1.3 ML in 0.9 % Sodium Chloride 8.7 ML IVP PRN (04:36)
[2020-06-15] MEDS ORDERED: *HR* HYDROcodone/Acet 5/325 mg TABLET PO PRN (04:40)
[2020-06-15] MEDS ORDERED: tiZANidine 4 MG TABLET PO PRN (04:40)
[2020-06-15 07:23] LABS: INR 1.4; Prothrombin Time 16.3 Seconds (9.4-12.1)
[2020-06-15] MEDS: Fenofibrate 54 MG TABLET PO SCH (08:22)
[2020-06-15] MEDS: diazePAM 5 MG TABLET PO SCH (08:23)
[2020-06-15] MEDS: Benzonatate 100 MG CAPSULE PO SCH ×3 (08:23→19:58)
[2020-06-15] MEDS ORDERED: *HR* Rivaroxaban 10 MG TABLET PO SCH (09:00)
[2020-06-15] MEDS ORDERED: Simethicone 80 MG TAB.CHEW PO PRN (12:14)
[2020-06-15] MEDS ORDERED: 0.9 % Sodium Chloride 2,000 ML ONE (12:36)
[2020-06-15] MEDS ORDERED: Heparin 1,000 UNITS/500 mL 500 ML ONE (12:36)
[2020-06-15] MEDS ORDERED: *HR* Heparin 10,000 UNIT/10 ML VIAL ONE (12:36)
[2020-06-15] MEDS ORDERED: ISOVUE-370 200 ML INFUS..BTL ONE (12:36)
[2020-06-15] MEDS ORDERED: Nitroglycerin 1,000 MCG/10 ML VIAL IV ONE (12:36)
[2020-06-15] MEDS ORDERED: *HR* Midazolam HCl 2 MG/2 ML VIAL ONE (12:54)
[2020-06-15] MEDS ORDERED: *HR* FentaNYL (PF) 100 MCG/2 ML VIAL ONE (12:54)
[2020-06-15] MEDS ORDERED: Albuterol 2.5 MG/3 ML NEBULIZER IH PRN (16:48)
[2020-06-15] MEDS ORDERED: DilTIAZem CD (24hr) 120 MG CAP.ER.24H PO SCH (18:00)
[2020-06-15] MEDS: Doxycycline 100 MG CAPSULE PO SCH (19:58)
[2020-06-15] MEDS ORDERED: Latanoprost 2.5 ML BOTTLE LEFT EYE SCH (21:00)
[2020-06-15] MEDS ORDERED: Gabapentin 300 MG CAPSULE PO SCH (21:00)
[2020-06-15] MEDS ORDERED: diazePAM 5 MG TABLET PO SCH (21:00)
[2020-06-16 01:03] LABS: Basophils # 0.1 K/mcL (0.0-0.2); Basophils % 0.9 %; Eosinophils # 0.3 K/mcL (0.0-0.6); Eosinophils % 3.9 %; Hematocrit 39.1 % (37.5-50.1); Hemoglobin 12.5 g/dL (12.9-16.9); Immature Granulocytes % 0.4 % (0-4); Lymphocytes # 1.4 K/mcL (0.6-4.6); Lymphocytes % 17.1 %; Mean Corpuscular Hemoglobin 27.2 pg (28.0-33.3); Mean Corpuscular Volume 85.2 fL (83.0-100.0); Monocytes # 0.9 K/mcL (0.0-1.3); Monocytes % 10.7 %; Neutrophils # 5.4 K/mcL (1.6-8.9); Platelet Count 288 K/mcL (140-400); Red Blood Count 4.59 M/mcL (4.19-5.50); Red Cell Distribution Width 13.6 % (11.5-14.5); White Blood Count 8.1 K/mcL (4.3-11.1)
[2020-06-16 01:19] LABS: BUN/Creatinine Ratio 17 (6-26); Blood Urea Nitrogen 15 mg/dL (8-23); Carbon Dioxide 30 mEq/L (23-29); Chloride 93 mEq/L (98-107); Glucose 100 mg/dL (70-105); Osmolality,Calculated 267 (280-300); Potassium 3.5 mEq/L (3.5-5.1); Sodium 128 mEq/L (136-145); eGFR For African Americans > 60 (> 60); eGFR For Non-African Americans > 60 (> 60)
[2020-06-16 08:40] LABS: Estimated Average Glucose 128 mg/dl; Hemoglobin A1C 6.1 %
[2020-06-16] MEDS ORDERED: Cyanocobalamin (B-12) 1,000 MCG TABLET PO SCH (09:00)
[2020-06-16] MEDS ORDERED: *HR* Rivaroxaban 10 MG TABLET PO SCH (09:00)
[2020-06-16] MEDS ORDERED: hydroCHLOROthiazide 25 MG TABLET PO SCH (09:00)
[2020-06-16] MEDS: Fenofibrate 54 MG TABLET PO SCH (09:24)
[2020-06-16] MEDS: Benzonatate 100 MG CAPSULE PO SCH (09:25)
[2020-06-16] MEDS: Doxycycline 100 MG CAPSULE PO SCH (09:25)
[2020-06-16] MEDS: diazePAM 5 MG TABLET PO SCH (09:25)
[2020-06-16 10:36] VITALS: BP 108/71
== END 2020-06-16 17:19 | disposition home or self-care (01) ==
LOC: 2ANU 23:12 → EMEROOARM 23:12 → SUATTDRO 06-15 02:41 → 2ANU 06-15 03:11
PROVIDERS: ADMIT Internal Medicine; ATTEND Internal Medicine

== ENCOUNTER 2020-08-05 21:08 | Observation (INO) ==
[2020-08-05 21:46] LABS: Basophils # 0.1 K/mcL (0.0-0.2); Eosinophils # 0.5 K/mcL (0.0-0.6); Hematocrit 35.3 % (37.5-50.1); Hemoglobin 11.3 g/dL (12.9-16.9); Immature Granulocytes % 0.6 % (0-4); Lymphocytes # 1.4 K/mcL (0.6-4.6); Lymphocytes % 19.9 %; Mean Corpuscular Hemoglobin 27.2 pg (28.0-33.3); Mean Corpuscular Volume 85.1 fL (83.0-100.0); Mean Platelet Volume 8.4 fL (9.4-12.4); Monocytes # 0.7 K/mcL (0.0-1.3); Monocytes % 9.6 %; Neutrophils # 4.2 K/mcL (1.6-8.9); Platelet Count 275 K/mcL (140-400); Red Blood Count 4.15 M/mcL (4.19-5.50); Red Cell Distribution Width 13.8 % (11.5-14.5); Segmented Neutrophils % 61.9 %; White Blood Count 6.9 K/mcL (4.3-11.1)
[2020-08-05 22:07] LABS: BUN/Creatinine Ratio 12 (6-26); Blood Urea Nitrogen 11 mg/dL (8-23); Carbon Dioxide 27 mEq/L (23-29); Chloride 93 mEq/L (98-107); Glucose 128 mg/dL (70-105); Osmolality,Calculated 265 (280-300); Potassium 3.2 mEq/L (3.5-5.1); Sodium 127 mEq/L (136-145); eGFR For African Americans > 60 (> 60); eGFR For Non-African Americans > 60 (> 60)
[2020-08-05 22:08] LABS: Troponin I < 0.03 ng/mL (< 0.04)
[2020-08-06] MEDS ORDERED: Potassium Chloride 20 MEQ, Lidocaine 1% 2 ML in 0.9 % Sodium Chloride 250 ML IVPB ONE (02:24)
[2020-08-06] MEDS ORDERED: Nitroglycerin 0.4 MG TAB.SUBL SL PRN (03:09)
[2020-08-06] MEDS ORDERED: Morphine Sulfate 2 MG/ML SYRINGE IVP PRN (03:10)
[2020-08-06] MEDS ORDERED: Naloxone 0.4 MG/ML INJ IVP PRN (03:14)
[2020-08-06] MEDS ORDERED: Acetaminophen 325 MG TABLET PO PRN (03:14)
[2020-08-06] MEDS ORDERED: Ondansetron 4 MG/2 ML VIAL IVP PRN (03:14)
[2020-08-06 06:38] LABS: Hematocrit 39.5 % (37.5-50.1); Hemoglobin 12.4 g/dL (12.9-16.9); Mean Corpuscular HGB Conc 31.4 g/dL (31.6-35.5); Mean Corpuscular Hemoglobin 27.1 pg (28.0-33.3); Mean Corpuscular Volume 86.2 fL (83.0-100.0); Mean Platelet Volume 8.7 fL (9.4-12.4); Platelet Count 266 K/mcL (140-400); Red Blood Count 4.58 M/mcL (4.19-5.50); Red Cell Distribution Width 13.8 % (11.5-14.5); White Blood Count 5.7 K/mcL (4.3-11.1)
[2020-08-06 06:56] LABS: BUN/Creatinine Ratio 10 (6-26); Blood Urea Nitrogen 9 mg/dL (8-23); Calcium 9.3 mg/dL (8.6-10.3); Carbon Dioxide 30 mEq/L (23-29); Chloride 94 mEq/L (98-107); Chol/HDL Ratio 2.5 (0-4.9); Cholesterol 147 mg/dL (< 200); Glucose 100 mg/dL (70-105); HDL Cholesterol 58 mg/dL (40-59); LDL Cholesterol,Calculated 72 mg/dL (< 100); Magnesium 1.8 mg/dL (1.6-2.6); Osmolality,Calculated 271 (280-300); Potassium 3.3 mEq/L (3.5-5.1); Sodium 131 mEq/L (136-145); Triglycerides 85 mg/dL (< 150); eGFR For African Americans > 60 (> 60); eGFR For Non-African Americans > 60 (> 60)
[2020-08-06 07:09] LABS: Thyroid Stimulating Hormone 2.083 mcIU/mL (0.340-5.600)
[2020-08-06 07:33] LABS: Estimated Average Glucose 123 mg/dl; Hemoglobin A1C 5.9 %
[2020-08-06] MEDS ORDERED: Isosorbide MONOnitrate (24 HR) 30 MG TAB.ER.24H PO SCH (09:00)
[2020-08-06] MEDS: Aspirin Enteric Coated 81 MG Tablet PO SCH (09:05)
[2020-08-06] MEDS: DilTIAZem CD (24hr) 120 MG CAP.ER.24H PO SCH (09:06)
[2020-08-06] MEDS: 0.9 % Sodium Chloride 1,000 ML IVC SCH (14:55)
[2020-08-06] MEDS ORDERED: Albuterol 2.5 MG/3 ML NEBULIZER IH PRN (16:42)
[2020-08-06] MEDS ORDERED: *HR* Rivaroxaban 10 MG TABLET PO SCH (17:00)
[2020-08-06] MEDS: *HR* HYDROcodone/Acet 5/325 mg TABLET PO PRN ×2 (17:13→23:25)
[2020-08-06] MEDS ORDERED: diazePAM 5 MG TABLET PO SCH (18:00)
[2020-08-06] MEDS ORDERED: Latanoprost 2.5 ML BOTTLE LEFT EYE SCH (21:00)
[2020-08-07] MEDS: 0.9 % Sodium Chloride 1,000 ML IVC SCH (03:26)
[2020-08-07] MEDS: *HR* HYDROcodone/Acet 5/325 mg TABLET PO PRN (05:34)
[2020-08-07] MEDS: DilTIAZem CD (24hr) 120 MG CAP.ER.24H PO SCH (07:57)
[2020-08-07] MEDS: Aspirin Enteric Coated 81 MG Tablet PO SCH (08:01)
[2020-08-07] MEDS ORDERED: Famotidine 20 MG TABLET PO SCH (09:00)
[2020-08-07] MEDS ORDERED: Fenofibrate 54 MG TABLET PO SCH (09:00)
[2020-08-07] MEDS ORDERED: BIFIDOBACTERIUM INFANTIS 4 MG PO SCH (09:00)
[2020-08-07] MEDS ORDERED: diazePAM 5 MG TABLET PO SCH (09:00)
[2020-08-07] MEDS ORDERED: Cyanocobalamin (B-12) 1,000 MCG TABLET PO SCH (09:00)
[2020-08-07] MEDS ORDERED: Cholecalciferol (D-3) 1,000 UNIT (25MCG) TABLET PO SCH (09:00)
[2020-08-07 09:04] LABS: Hematocrit 36.2 % (37.5-50.1); Hemoglobin 11.7 g/dL (12.9-16.9); Mean Corpuscular HGB Conc 32.3 g/dL (31.6-35.5); Mean Corpuscular Hemoglobin 27.7 pg (28.0-33.3); Mean Corpuscular Volume 85.8 fL (83.0-100.0); Mean Platelet Volume 8.5 fL (9.4-12.4); Platelet Count 252 K/mcL (140-400); Red Blood Count 4.22 M/mcL (4.19-5.50); White Blood Count 4.9 K/mcL (4.3-11.1)
[2020-08-07 09:06] LABS: Basophils # 0.1 K/mcL (0.0-0.2); Eosinophils # 0.4 K/mcL (0.0-0.6); Eosinophils % 7.3 %; Hematocrit 36.8 % (37.5-50.1); Hemoglobin 11.8 g/dL (12.9-16.9); Immature Granulocytes % 0.4 % (0-4); Lymphocytes # 1.1 K/mcL (0.6-4.6); Lymphocytes % 21.8 %; Mean Corpuscular HGB Conc 32.1 g/dL (31.6-35.5); Mean Corpuscular Hemoglobin 27.5 pg (28.0-33.3); Mean Corpuscular Volume 85.8 fL (83.0-100.0); Mean Platelet Volume 8.5 fL (9.4-12.4); Monocytes # 0.5 K/mcL (0.0-1.3); Monocytes % 10.5 %; Neutrophils # 2.9 K/mcL (1.6-8.9); Platelet Count 253 K/mcL (140-400); Red Blood Count 4.29 M/mcL (4.19-5.50)
[2020-08-07 09:27] LABS: BUN/Creatinine Ratio 10 (6-26); Blood Urea Nitrogen 8 mg/dL (8-23); Carbon Dioxide 26 mEq/L (23-29); Chloride 102 mEq/L (98-107); Glucose 95 mg/dL (70-105); Osmolality,Calculated 274 (280-300); Potassium 3.5 mEq/L (3.5-5.1); Sodium 133 mEq/L (136-145); eGFR For African Americans > 60 (> 60); eGFR For Non-African Americans > 60 (> 60)
[2020-08-07 10:56] VITALS: BP 125/89
== END 2020-08-07 14:21 | disposition home or self-care (01) ==
LOC: EMEROOARM 21:08 → 3BNU 21:08 → SUATTDRO 23:44 → 3BNU 08-06 00:20
PROVIDERS: ADMIT Student in an Organized Health Care Education/Training Program; ATTEND General Practice

== ENCOUNTER 2020-12-12 21:17 | Observation (INO) ==
[2020-12-12 21:29] VITALS: TEMP 97.8
[2020-12-12] MEDS ORDERED: Isovue-370 500 ML BOTTLE IVP ONE (22:36)
[2020-12-12] MEDS ORDERED: Aspirin 81 MG TAB.CHEW PO ONE (22:36)
[2020-12-13 00:27] LABS: Basophils # 0.1 K/mcL (0.0-0.2); Basophils % 0.7 %; Eosinophils # 0.4 K/mcL (0.0-0.6); Eosinophils % 4.7 %; Hematocrit 41.3 % (37.5-50.1); Hemoglobin 12.6 g/dL (12.9-16.9); Immature Granulocytes % 0.6 % (0-4); Lymphocytes # 1.2 K/mcL (0.6-4.6); Lymphocytes % 14.4 %; Mean Corpuscular HGB Conc 30.5 g/dL (31.6-35.5); Mean Corpuscular Hemoglobin 27.2 pg (28.0-33.3); Mean Corpuscular Volume 89.2 fL (83.0-100.0); Mean Platelet Volume 8.5 fL (9.4-12.4); Monocytes # 0.5 K/mcL (0.0-1.3); Monocytes % 6.5 %; Platelet Count 244 K/mcL (140-400); Red Blood Count 4.63 M/mcL (4.19-5.50); Red Cell Distribution Width 13.5 % (11.5-14.5); Segmented Neutrophils % 73.1 %; White Blood Count 8.3 K/mcL (4.3-11.1)
[2020-12-13 00:47] LABS: Alanine Aminotransferase 10 Units/L (7-52); Albumin 3.7 g/dL (3.5-5.7); Albumin/Globulin Ratio 1.7 (1.1-2.2); Alkaline Phosphatase 43 Units/L (34-104); Aspartate Amino Transferase 12 Units/L (13-39); BUN/Creatinine Ratio 11 (6-26); Bilirubin,Direct 0.1 mg/dL (0.0-0.2); Bilirubin,Indirect 0.2 mg/dL (0.0-1.0); Bilirubin,Total 0.3 mg/dL (0.3-1.0); Blood Urea Nitrogen 14 mg/dL (8-23); Calcium 9.1 mg/dL (8.6-10.3); Carbon Dioxide 31 mEq/L (23-29); Chloride 102 mEq/L (98-107); Globulin 2.2 g/dL (2.4-3.5); Glucose 143 mg/dL (70-105); Magnesium 1.8 mg/dL (1.6-2.6); Osmolality,Calculated 291 (280-300); Potassium 3.6 mEq/L (3.5-5.1); Sodium 139 mEq/L (136-145); Total Protein 5.9 g/dL (6.4-8.9); eGFR For African Americans > 60 (> 60); eGFR For Non-African Americans 55 (> 60)
[2020-12-13 00:48] LABS: Troponin I < 0.03 ng/mL (< 0.04)
[2020-12-13] MEDS ORDERED: methocarbamoL 750 MG TABLET PO STA (01:10)
[2020-12-13 01:11] LABS: Bilirubin,Urine Negative (Negative); Blood,Urine Negative (Negative); Clarity,Urine Clear (Clear); Color,Urine Light-Yellow (Yellow); Glucose,Urine (UA) Normal (Normal); Ketones,Urine Negative (Negative); Leukocyte Esterase,Urine Negative (Negative); Nitrite,Urine Negative (Negative); Protein,Urine Negative (Neg-Trace); Specific Gravity,Urine 1.016 (1.010-1.025); Urobilinogen,Urine Normal (Normal)
[2020-12-13 01:27] LABS: Influenza A PCR Negative (Negative); Influenza B PCR Negative (Negative); Resp. Syncytial Virus PCR Negative (Negative)
[2020-12-13 01:41] LABS: SARS-CoV-2 by PCR (In House) Negative (Negative)
[2020-12-13 02:29] VITALS: BP 130/91; PULSE 88; O2SAT 96
[2020-12-13] MEDS ORDERED: Melatonin 3 MG TABLET PO PRN (05:16)
[2020-12-13] MEDS ORDERED: Ondansetron 4 MG/2 ML VIAL IVP PRN (05:16)
[2020-12-13] MEDS ORDERED: Naloxone 0.4 MG/ML INJ IVP PRN (05:16)
== END 2020-12-13 06:45 | disposition home or self-care (01) ==
LOC: CDU 21:17 → EMEROOARM 21:17 → CDU 12-13 06:59
PROVIDERS: ADMIT Internal Medicine; ATTEND Internal Medicine

== ENCOUNTER 2020-12-19 10:55 | Observation (INO) ==
[2020-12-19] MEDS ORDERED: Aspirin 325 MG TABLET PO ONE (11:12)
[2020-12-19] MEDS ORDERED: *HR* FentaNYL (PF) 100 MCG/2 ML VIAL IVP ONE (11:19)
[2020-12-19] MEDS ORDERED: Isovue-370 500 ML BOTTLE IVP ONE (11:19)
[2020-12-19] MEDS ORDERED: Ondansetron 4 MG/2 ML VIAL IVP ONE (11:19)
[2020-12-19] MEDS ORDERED: methylPREDNISolone 125 MG/2 ML VIAL IVP ONE (11:19)
[2020-12-19] MEDS ORDERED: Ipratropium/Albuterol Neb 3 ML IH ONE (11:19)
[2020-12-19 12:44] LABS: Basophils # 0.1 K/mcL (0.0-0.2); Basophils % 0.9 %; Eosinophils # 0.4 K/mcL (0.0-0.6); Eosinophils % 5.3 %; Hematocrit 44.5 % (37.5-50.1); Hemoglobin 13.6 g/dL (12.9-16.9); Immature Granulocytes % 0.4 % (0-4); Lymphocytes % 11.9 %; Mean Corpuscular HGB Conc 30.6 g/dL (31.6-35.5); Mean Corpuscular Hemoglobin 27.1 pg (28.0-33.3); Mean Corpuscular Volume 88.8 fL (83.0-100.0); Mean Platelet Volume 9.1 fL (9.4-12.4); Monocytes # 0.5 K/mcL (0.0-1.3); Monocytes % 6.2 %; Neutrophils # 6.2 K/mcL (1.6-8.9); Platelet Count 279 K/mcL (140-400); Red Blood Count 5.01 M/mcL (4.19-5.50); Red Cell Distribution Width 13.8 % (11.5-14.5); Segmented Neutrophils % 75.3 %; White Blood Count 8.2 K/mcL (4.3-11.1)
[2020-12-19 12:47] LABS: Bilirubin,Urine Negative (Negative); Blood,Urine Negative (Negative); Clarity,Urine Clear (Clear); Color,Urine Colorless (Yellow); Glucose,Urine (UA) Normal (Normal); Ketones,Urine Negative (Negative); Leukocyte Esterase,Urine Negative (Negative); Nitrite,Urine Negative (Negative); Protein,Urine Negative (Neg-Trace); Urobilinogen,Urine Normal (Normal)
[2020-12-19 12:54] LABS: INR 1.4; Prothrombin Time 15.4 Seconds (9.4-12.1)
[2020-12-19 12:57] LABS: Activated Partial Thrombo Time 41.8 Seconds (26.0-36.0)
[2020-12-19 13:04] LABS: BUN/Creatinine Ratio 14 (6-26); Blood Urea Nitrogen 17 mg/dL (8-23); Calcium 9.9 mg/dL (8.6-10.3); Carbon Dioxide 28 mEq/L (23-29); Chloride 101 mEq/L (98-107); Glucose 102 mg/dL (70-105); Magnesium 2.1 mg/dL (1.6-2.6); Osmolality,Calculated 286 (280-300); Potassium 4.3 mEq/L (3.5-5.1); Sodium 137 mEq/L (136-145); Troponin I < 0.03 ng/mL (< 0.04); eGFR For African Americans > 60 (> 60); eGFR For Non-African Americans > 60 (> 60)
[2020-12-19 13:33] LABS: Adenovirus Not Detected (Not Detect); Bordetella Pertussis Not Detected (Not Detect); Chlamydophila pneumoniae Not Detected (Not Detect); Coronavirus 229E Not Detected (Not Detect); Coronavirus HKU1 Not Detected (Not Detect); Coronavirus NL63 Not Detected (Not Detect); Coronavirus OC43 Not Detected (Not Detect); Human Metapneumovirus Not Detected (Not Detect); Human Rhinovirus/Enterovirus Not Detected (Not Detect); Influenza A Subtype 2009 H1 Not Detected (Not Detect); Influenza B Not Detected (Not Detect); Mycoplasma pneumoniae Not Detected (Not Detect); Parainfluenza Virus 1 Not Detected (Not Detect); Parainfluenza Virus 2 Not Detected (Not Detect); Parainfluenza Virus 3 Not Detected (Not Detect); Parainfluenza Virus 4 Not Detected (Not Detect); Respiratory Syncytial Virus Not Detected (Not Detect); SARS-CoV-2 Not Detected (Not Detect)
[2020-12-19] MEDS ORDERED: Naloxone 0.4 MG/ML INJ IVP PRN (17:03)
[2020-12-19] MEDS ORDERED: Melatonin 3 MG TABLET PO PRN (17:03)
[2020-12-19] MEDS ORDERED: Mag Hydrox/Al Hydrox/Simeth 30 ML UDC PO PRN (17:03)
[2020-12-19] MEDS ORDERED: Ondansetron ODT 4 MG TAB.RAPDIS SL PRN (17:03)
[2020-12-19] MEDS ORDERED: *HR* HYDROcodone/Acet 5/325 mg TABLET PO PRN (17:08)
[2020-12-19] MEDS ORDERED: diazePAM 5 MG TABLET PO PRN (17:08)
[2020-12-19] MEDS ORDERED: Perflutren Lipid Microsphere 1.3 ML in 0.9 % Sodium Chloride 8.7 ML IVP PRN (17:29)
[2020-12-19] MEDS: DilTIAZem CD (24hr) 120 MG CAP.ER.24H PO SCH (19:59)
[2020-12-19] MEDS: Isosorbide MONOnitrate (24 HR) 30 MG TAB.ER.24H PO SCH (19:59)
[2020-12-19] MEDS ORDERED: Latanoprost 2.5 ML BOTTLE LEFT EYE SCH (21:00)
[2020-12-19] MEDS ORDERED: Gabapentin 300 MG CAPSULE PO SCH (21:00)
[2020-12-20 02:29] LABS: Hematocrit 45.1 % (37.5-50.1); Mean Corpuscular Volume 86.9 fL (83.0-100.0); Mean Platelet Volume 8.9 fL (9.4-12.4); Platelet Count 295 K/mcL (140-400); Red Blood Count 5.19 M/mcL (4.19-5.50); Red Cell Distribution Width 13.8 % (11.5-14.5)
[2020-12-20 02:38] LABS: Calcium 9.8 mg/dL (8.6-10.3); Potassium 4.2 mEq/L (3.5-5.1)
[2020-12-20] MEDS ORDERED: *HR* Rivaroxaban 10 MG TABLET PO SCH (09:00)
[2020-12-20] MEDS ORDERED: hydroCHLOROthiazide 25 MG TABLET PO SCH (09:00)
[2020-12-20] MEDS ORDERED: 0.9 % Sodium Chloride 1,000 ML IVC ONE (09:38)
[2020-12-20] MEDS: Isosorbide MONOnitrate (24 HR) 30 MG TAB.ER.24H PO SCH (10:06)
[2020-12-20 15:15] LABS: BUN/Creatinine Ratio 20 (6-26); Blood Urea Nitrogen 27 mg/dL (8-23); Calcium 9.7 mg/dL (8.6-10.3); Carbon Dioxide 30 mEq/L (23-29); Chloride 99 mEq/L (98-107); Glucose 123 mg/dL (70-105); Osmolality,Calculated 286 (280-300); Potassium 4.3 mEq/L (3.5-5.1); Sodium 135 mEq/L (136-145); eGFR For African Americans > 60 (> 60); eGFR For Non-African Americans 52 (> 60)
[2020-12-20 15:30] VITALS: BP 117/79; PULSE 98; TEMP 98.2; O2SAT 90
[2020-12-20] MEDS: DilTIAZem CD (24hr) 120 MG CAP.ER.24H PO SCH (17:30)
== END 2020-12-20 18:12 | disposition home or self-care (01) ==
LOC: EMEROOARM 10:55 → 3BNU 10:55 → SUATTDRO 16:02 → 3BNU 16:53
PROVIDERS: ADMIT Internal Medicine; ATTEND Registered Nurse